=== PATIENT | female | born 1975 | race Caucasian/White ===

== ENCOUNTER 2020-07-06 13:31 | Outpatient (REF) | payer OTHER, SELFPAY ==
--- NOTE | 2020-07-06 13:37 | XR_ITS ---
EXAMINATION: XR SHOULDER, RIGHT CLINICAL INFORMATION: Pain right shoulder COMPARISON: None TECHNIQUE: AP external rotation, Grashey, scapular Y, and axillary views of the right shoulder. FINDINGS: The bones and soft tissues are normal. No fracture. Glenohumeral and acromioclavicular alignment is anatomic with normal joint space. No abnormal soft tissue calcifications. XR/XR shoulder RT min 2V IMPRESSION: Normal right shoulder.
== END 2020-07-06 13:32 | disposition home or self-care (01) ==
LOC: HO.HMGCX 13:31
PROVIDERS: PCP Internal Medicine; Visit Provider Internal Medicine
DX: M25.511 Pain in right shoulder (principal)
CPT/HCPCS: 73030

== ENCOUNTER 2020-08-04 07:16 | Outpatient (REF) | payer OTHER, SELFPAY ==
[2020-08-04 11:19] LABS: MANUAL DIFF FLAG NO
[2020-08-04 11:26] LABS: Basophils Absolute Auto 0.1 X10*3/uL (0.0-0.2); Basophils Percent Auto 0.8 % (0-2); Eosinophils Absolute Auto 0.1 X10*3/uL (0.0-0.4); Hematocrit 30.2 % (37-47); Hemoglobin 8.6 g/dl (12.0-16.0); Imm Gran Abs Auto 0.01 X10*3/uL (0.00-0.03); Imm Gran Pct Auto 0.2 % (0.0-0.4); Lymphocytes Absolute Auto 1.7 X10*3/uL (1.2-4.9); Lymphocytes Percent Auto 28.1 % (20-40); Mean Corpuscular HGB Conc 28.5 g/dl (31.0-35.0); Mean Corpuscular Hemoglobin 19.9 pg (27.0-33.0); Mean Corpuscular Volume 69.7 fL (80-98); Mean Platelet Volume 9.7 fL (9.4-12.3); Monocytes Absolute Auto 0.5 X10*3/uL (0.1-1.2); Monocytes Percent Auto 8.8 % (2-11); Neutrophils Absolute Auto 3.7 X10*3/uL (2.0-8.3); Neutrophils Percent Auto 60.1 % (45-73); Platelet Count 302 X10*3/uL (160-400); Red Blood Count 4.33 X10*6/uL (4.20-5.50); Red Cell Distribution Width 16.6 % (11.0-16.0); White Blood Count 6.1 X10*3/uL (4.8-10.8)
[2020-08-04 11:50] LABS: Alanine Aminotransferase 13 U/L (0-31); Albumin Level 4.2 g/dL (3.5-5.0); Alkaline Phosphatase 64 U/L (39-117); Anion Gap 10 (12-20); Aspartate Amino Transferase 8 U/L (5-31); Bilirubin Total 0.3 mg/dL (0.0-1.0); Blood Urea Nitrogen 12 mg/dL (9-16); Calcium 8.6 mg/dL (8.4-10.2); Carbon Dioxide 25 mmol/L (22-29); Chloride 107 mmol/L (96-108); Cholesterol 197 mg/dL; Estimated Glomerular Filt Rate > 60; Glucose Fasting 83 mg/dL (60-99); HDL Cholesterol 44 mg/dL; Iron 24 mcg/dL (30-160); LDL Cholesterol Calculated 139 mg/dl; Percent Iron Saturation 5 % (15-50); Potassium 4.2 mmol/l (3.3-5.1); Sodium 138 mmol/L (135-145); Total Iron Binding Capacity 480 mcg/dL (228-428); Total Protein 6.8 g/dL (6.5-8.0); Triglycerides 72 mg/dL; Unsaturated Iron Binding 456 ug/dL
[2020-08-04 12:11] LABS: Thyroid Stimulating Hormone 1.03 uIU/mL (0.32-4.0)
== END 2020-08-04 07:17 | disposition home or self-care (01) ==
LOC: HO.HMGCLDS 07:16
PROVIDERS: PCP Internal Medicine; Visit Provider Internal Medicine
DX: D50.9 Iron deficiency anemia, unspecified (principal); M25.511 Pain in right shoulder; Z00.00 Encounter for general adult medical examination without abnormal findings
CPT/HCPCS: 36415; 80053; 80061; 83540; 84443; 85025

== ENCOUNTER 2020-09-13 15:22 | Outpatient (REF) | payer OTHER, SELFPAY ==
--- NOTE | 2020-09-13 15:29 | US_ITS ---
EXAMINATION: US THYROID CLINICAL INFORMATION: Thyroid nodule. COMPARISON: None TECHNIQUE: Linear transducer marie-scale and color Doppler examination with attention to the region of the thyroid. FINDINGS: SIZE: Measurements of the thyroid lobes and nodules are given in sagittal, anteroposterior and transverse dimensions respectively. Right Thyroid Lobe: 5.3 x 1.6 x 1.6 cm, volume 7 mL. Parenchyma: The gland echotexture is normal. Thyroid vascularity is normal. Left Thyroid Lobe: 5.4 x 1.4 x 1.3 cm, volume 5 mL. Parenchyma: The gland echotexture is normal. Thyroid vascularity is normal. Isthmus: 0.3 cm in maximum AP dimension. RIGHT THYROID LOBE: No nodules. ISTHMUS: No nodules. LEFT THYROID LOBE: No nodules. NODES: No lymphadenopathy is seen in the tissue surrounding the thyroid gland. US/US thyroid IMPRESSION: Normal thyroid ultrasound. No nodule seen.
== END 2020-09-13 15:23 | disposition home or self-care (01) ==
LOC: HO.HMGCX 15:22
PROVIDERS: PCP Internal Medicine; Visit Provider Internal Medicine
DX: E04.1 Nontoxic single thyroid nodule (principal); Z00.00 Encounter for general adult medical examination without abnormal findings; R04.1 Hemorrhage from throat
CPT/HCPCS: 76536

== ENCOUNTER 2021-04-04 08:21 | Outpatient (REF) | payer OTHER, SELFPAY ==
--- NOTE | ~2021-04-04 | US_ITS ---
EXAMINATION: US VENOUS ULTRASOUND WITH DOPPLER LOWER EXTREMITY, LEFT CLINICAL INFORMATION: Left leg pain. COMPARISON: None TECHNIQUE: Ultrasound of the deep veins is performed from the hip to the calf with compression sonography and color and pulse Doppler assessment. Spectral analysis with color-flow imaging is performed. FINDINGS: There is normal venous compression and respiratory variation and augmented flow. The visualized common femoral vein, superficial femoral vein, profunda femoral vein, popliteal vein, and the trifurcation region shows no evidence of deep venous thrombosis. There is no significant popliteal fossa cyst. There is no Ramos's cyst. If the patient's symptoms persist, followup ultrasound in 5 days 7 days might be of value to exclude proximal propagation from a non-visualized calf vein. US/US venous duplex LE LT IMPRESSION: No DVT demonstrated in the left lower extremity.
== END 2021-04-04 08:22 | disposition home or self-care (01) ==
LOC: HO.HMGCX 08:21
PROVIDERS: PCP Internal Medicine; Visit Provider Internal Medicine
DX: M79.605 Pain in left leg (principal)
CPT/HCPCS: 93971

== ENCOUNTER 2021-07-19 11:37 | Outpatient (REF) | payer OTHER, SELFPAY ==
[2021-07-19 13:13] LABS: Influenza A PCR NEGATIVE (Negative); Influenza B PCR NEGATIVE (Negative); Resp Syncy Virus RNA Qual PCR NEGATIVE (Negative); SARS COV2 PCR INHOUSE POSITIVE (Negative)
== END 2021-07-19 11:38 | disposition home or self-care (01) ==
LOC: HO.LNP 11:37
PROVIDERS: Visit Provider Physician Assistant Medical
DX: Z20.822 Contact with and (suspected) exposure to COVID-19 (principal); J06.9 Acute upper respiratory infection, unspecified
CPT/HCPCS: 0241U

== ENCOUNTER 2021-11-15 08:09 | Outpatient (REF) | payer OTHER, SELFPAY ==
[2021-11-15 11:42] LABS: Hematocrit 35.5 % (37.0-47.0); Hemoglobin 10.9 g/dl (12.0-16.0); Mean Corpuscular HGB Conc 30.7 g/dl (31.0-35.0); Mean Corpuscular Hemoglobin 23.9 pg (27.0-33.0); Mean Corpuscular Volume 77.9 fL (80.0-98.0); Mean Platelet Volume 10.1 fL (9.4-12.3); Platelet Count 332 X10*3/uL (160-400); Red Blood Count 4.56 X10*6/uL (4.20-5.50); Red Cell Distribution Width 14.9 % (11.0-16.0); White Blood Count 7.4 X10*3/uL (4.8-10.8)
[2021-11-15 11:55] LABS: Alanine Aminotransferase 17 U/L (0-31); Alkaline Phosphatase 71 U/L (39-117); Anion Gap 10 (12-20); Aspartate Amino Transferase 9 U/L (5-31); Bilirubin Total 0.4 mg/dL (0.0-1.0); Blood Urea Nitrogen 13 mg/dL (9-16); Calcium 9.1 mg/dL (8.4-10.2); Carbon Dioxide 25 mmol/L (22-29); Chloride 106 mmol/L (96-108); Cholesterol 204 mg/dL; Estimated Glomerular Filt Rate > 60; Glucose Fasting 84 mg/dL (60-99); HDL Cholesterol 48 mg/dL; Iron 41 mcg/dL (30-160); LDL Cholesterol Calculated 135 mg/dl; Percent Iron Saturation 9 % (15-50); Potassium 3.9 mmol/L (3.3-5.1); Sodium 137 mmol/L (135-145); Total Iron Binding Capacity 481 mcg/dL (228-428); Total Protein 6.7 g/dL (6.5-8.0); Triglycerides 108 mg/dL; Unsaturated Iron Binding 440 ug/dL
== END 2021-11-15 08:10 | disposition home or self-care (01) ==
LOC: HO.HMGCLDS 08:09
PROVIDERS: Visit Provider Internal Medicine
DX: D50.9 Iron deficiency anemia, unspecified (principal); E78.5 Hyperlipidemia, unspecified
CPT/HCPCS: 36415; 80053; 80061; 83540; 85027

== ENCOUNTER 2021-12-13 15:44 | Outpatient (REF) | payer OTHER, SELFPAY | END 2021-12-13 15:45 | disposition home or self-care (01) | LOC: HO.MAMMO 15:44 | PROVIDERS: PCP Internal Medicine; Visit Provider Internal Medicine | DX: Z13.89 Encounter for screening for other disorder (principal) ==

== ENCOUNTER → 2022-01-18 13:31 | Outpatient (RCR) | payer OTHER, SELFPAY ==
--- NOTE | 2020-08-19 18:34 | MHC.PT.DC ---
[facility] [place] [facility] [place] [facility] [place] [facility] [address] Daly Hernandez [address] [phone] F: [phone] F: [phone] F: [phone] F: [phone] Physical Therapy Discharge Report Diagnosis: R shoulder pain. Date of Surgery: Date of Evaluation: 07/15/20 Date of Discharge: Treatments to Date: 7 Cancellations to Date: 0 No Shows to Date: 0 Discharge Status: Discharge Summary: Lucy has been an active participant in her therapy in the clinic with [facility] home program compliance. She requests DC after 7 visits as she is feeling significantly better of her pain. She has met all of her therapeutic goals though is recommended to continue her strengthening program at home as she persists with compensated shoulder movements d/t weakness. Electronically signed by: Guillermo Kebede PT. Please sign and return to therapist. Thank you for your referral.
--- NOTE | 2020-09-29 16:13 | MHC.PT.DC ---
[facility] [place] [facility] [place] Office [place] Office [address] Daly Hernandez [address] [phone] F: [phone] F: [phone] F: [phone] F: [phone] Physical Therapy Discharge Report Diagnosis: R shoulder pain. Date of Surgery: Date of Evaluation: 07/15/20 Date of Discharge: 09/10/20 Treatments to Date: 7 Cancellations to Date: 0 No Shows to Date: 0 Discharge Status: Achieved Goals Improved Function Independent with HEP Discharge Summary: Lucy has been an active participant in her therapy in the clinic with fair home program compliance. She requests DC after 7 visits as she is feeling significantly better of her pain. She has met all of her therapeutic goals though is recommended to continue her strengthening program at home as she persists with compensated shoulder movements d/t weakness. Electronically signed by: Guillermo Kebede PT. Please sign and return to therapist. Thank you for your referral.
== END | disposition home or self-care (01) ==
LOC: HO.PTCHIC 07-15 14:56
PROVIDERS: PCP Internal Medicine; Visit Provider Internal Medicine
DX: M25.511 Pain in right shoulder (principal)
CPT/HCPCS: 97014; 97110; 97140; 97161

== ENCOUNTER 2022-08-25 09:42 | Outpatient (REF) | payer OTHER, SELFPAY ==
[2022-08-25 11:25] LABS: Appearance Urine Clear; Color Urine Yellow; Glucose Urine UA Negative (Negative); Leukocyte Esterase Urine Negative (Negative); Nitrite Urine Negative (Negative); Specific Gravity - Urine <= 1.005 (1.005-1.025); Urine Blood Negative (Negative); Urine Ketones Negative (Negative); Urine Protein Negative (Neg-Trace)
[2022-08-25 11:30] LABS: MANUAL DIFF FLAG NO
[2022-08-25 11:47] LABS: Basophils Percent Auto 0.7 % (0-2); Eosinophils Absolute Auto 0.2 X10*3/uL (0.0-0.4); Eosinophils Percent Auto 2.8 % (0-4); Hematocrit 32.9 % (37.0-47.0); Hemoglobin 9.7 g/dl (12.0-16.0); Imm Gran Abs Auto 0.01 X10*3/uL (0.00-0.03); Imm Gran Pct Auto 0.2 % (0.0-0.4); Lymphocytes Absolute Auto 1.2 X10*3/uL (1.2-4.9); Lymphocytes Percent Auto 22.1 % (20-40); Mean Corpuscular HGB Conc 29.5 g/dl (31.0-35.0); Mean Corpuscular Hemoglobin 21.5 pg (27.0-33.0); Mean Corpuscular Volume 72.8 fL (80.0-98.0); Mean Platelet Volume 9.5 fL (9.4-12.3); Monocytes Absolute Auto 0.5 X10*3/uL (0.1-1.2); Neutrophils Absolute Auto 3.5 x10*3/uL (2.0-8.3); Neutrophils Percent Auto 65.2 % (45-73); Platelet Count 329 X10*3/uL (160-400); Red Blood Count 4.52 X10*6/uL (4.20-5.50); Red Cell Distribution Width 16.3 % (11.0-16.0); White Blood Count 5.4 X10*3/uL (4.8-10.8)
[2022-08-25 14:36] LABS: Alanine Aminotransferase 14 U/L (0-31); Albumin Level 4.3 g/dL (3.5-5.0); Alkaline Phosphatase 78 U/L (39-117); Anion Gap 10 (12-20); Aspartate Amino Transferase 9 U/L (5-31); Bilirubin Total 0.3 mg/dL (0.0-1.0); Blood Urea Nitrogen 10 mg/dL (9-16); C Reactive Protein 0.17 mg/dL (< or = 0.50); Calcium 9.2 mg/dL (8.4-10.2); Carbon Dioxide 27 mmol/L (22-29); Chloride 107 mmol/L (96-108); Estimated Glomerular Filt Rate > 60; Glucose Random 68 mg/dL (60-115); Iron 24 mcg/dL (30-160); Percent Iron Saturation 6 % (15-50); Potassium 4.2 mmol/L (3.3-5.1); Sodium 140 mmol/L (135-145); TSH reflex Free T4 0.73 uIU/mL (0.32-4.0); Total Iron Binding Capacity 430 mcg/dL (228-428); Total Protein 6.8 g/dL (6.5-8.0); Unsaturated Iron Binding 406 ug/dL
== END 2022-08-25 09:43 | disposition home or self-care (01) ==
LOC: HO.HMGCLDS 09:42
PROVIDERS: PCP Internal Medicine; Visit Provider Internal Medicine
DX: D50.9 Iron deficiency anemia, unspecified (principal); R10.31 Right lower quadrant pain
CPT/HCPCS: 36415; 80053; 81003; 83540; 84443; 85025; 86140

== ENCOUNTER 2022-10-20 07:22 | Outpatient (REF) | payer OTHER, SELFPAY ==
[2022-10-20 11:35] LABS: MANUAL DIFF FLAG NO
[2022-10-20 11:53] LABS: Basophils Absolute Auto 0.1 X10*3/uL (0.0-0.2); Basophils Percent Auto 0.8 % (0-2); Eosinophils Absolute Auto 0.3 X10*3/uL (0.0-0.4); Eosinophils Percent Auto 4.6 % (0-4); Hematocrit 34.7 % (37.0-47.0); Hemoglobin 10.6 g/dl (12.0-16.0); Imm Gran Abs Auto 0.02 X10*3/uL (0.00-0.03); Imm Gran Pct Auto 0.3 % (0.0-0.4); Lymphocytes Absolute Auto 1.8 X10*3/uL (1.2-4.9); Lymphocytes Percent Auto 25.3 % (20-40); Mean Corpuscular HGB Conc 30.5 g/dl (31.0-35.0); Mean Corpuscular Hemoglobin 22.6 pg (27.0-33.0); Mean Corpuscular Volume 73.8 fL (80.0-98.0); Mean Platelet Volume 10.2 fL (9.4-12.3); Monocytes Absolute Auto 0.6 X10*3/uL (0.1-1.2); Monocytes Percent Auto 7.8 % (2-11); Neutrophils Absolute Auto 4.4 x10*3/uL (2.0-8.3); Neutrophils Percent Auto 61.2 % (45-73); Platelet Count 284 X10*3/uL (160-400); Red Cell Distribution Width 19.6 % (11.0-16.0); White Blood Count 7.2 X10*3/uL (4.8-10.8)
[2022-10-20 12:08] LABS: Alanine Aminotransferase 21 U/L (0-31); Albumin Level 3.9 g/dL (3.5-5.0); Alkaline Phosphatase 74 U/L (39-117); Anion Gap 11 (12-20); Aspartate Amino Transferase 12 U/L (5-31); Bilirubin Total 0.5 mg/dL (0.0-1.0); Blood Urea Nitrogen 16 mg/dL (9-16); Calcium 8.9 mg/dL (8.4-10.2); Carbon Dioxide 24 mmol/L (22-29); Chloride 107 mmol/L (96-108); Cholesterol 209 mg/dL; Estimated Glomerular Filt Rate > 60; Glucose Fasting 82 mg/dL (60-99); HDL Cholesterol 54 mg/dL; LDL Cholesterol Calculated 136 mg/dl; Potassium 3.9 mmol/L (3.3-5.1); Sodium 138 mmol/L (135-145); Total Protein 6.3 g/dL (6.5-8.0); Triglycerides 95 mg/dL
[2022-10-20 12:31] LABS: TSH reflex Free T4 1.37 uIU/mL (0.32-4.0)
== END 2022-10-20 07:23 | disposition home or self-care (01) ==
LOC: HO.HMGCLDS 07:22
PROVIDERS: PCP Internal Medicine; Visit Provider Internal Medicine
DX: Z00.00 Encounter for general adult medical examination without abnormal findings (principal); E04.1 Nontoxic single thyroid nodule
CPT/HCPCS: 36415; 80053; 80061; 84443; 85025

== ENCOUNTER 2022-10-24 11:06 | Outpatient (REF) | payer OTHER, SELFPAY ==
[2022-10-24 14:41] LABS: Iron 99 mcg/dL (30-160); Percent Iron Saturation 23 % (15-50); Total Iron Binding Capacity 426 mcg/dL (228-428); Unsaturated Iron Binding 327 ug/dL
[2022-10-25 10:13] LABS: Follicle Stimulating Hormone 15.3 mIU/mL
== END 2022-10-24 11:07 | disposition home or self-care (01) ==
LOC: HO.HMGCLDS 11:06
PROVIDERS: PCP Internal Medicine; Visit Provider Internal Medicine
DX: Z78.0 Asymptomatic menopausal state (principal)
CPT/HCPCS: 36415; 83001; 83540

== ENCOUNTER 2023-01-08 10:00 | Outpatient (RCR) | payer OTHER, SELFPAY ==
--- NOTE | 2022-12-11 10:42 | MHC.PT.EP ---
[facility] [place] Office [place] Office [place] Office [address] Daly Hernandez [address] [phone] F: [phone] F: [phone] F: [phone] F: [phone] Physical Therapy Plan of Care Date of Evaluation: Date of Surgery: Diagnosis: This is a 47 yo female presenting to skilled PT with a script for pain in R hip Assessment: This is a 47 yo female presenting to skilled PT with a script for pain in R hip. Patient reporting R side low and some radiating RLE symptoms (however she is having a hard time explaining what and where). Pain is more achy and it comes and goes. Pain started about 3 months ago insidiously. Pain increases with sleeping on her sides, sitting (couch), stepping up onto stairs and LB dressing. Pain improves with walking. She saw her PCP who reports that she thinks this is soft tissue related (no x-ray, no exercises or medication). She is here today requesting HEP for home to try. Assessment reveals pain that ranges from 2-6/10. Patient demos decreased lumbar and hip ROM, strength of core, back and hip, she is TTP at R QL, ITB and piri. Functionally, she demos compensation with ambulation, transfers and ADLs. Based on functional limitations, impaired QOL and decreased pain tolerance patient is a good candidate for skilled PT 2x/wk for 5 wks however would like to try 1x/wk for 4wks. Frequency and Duration: The patient will be seen 2x/wk for 5wks Short Term Goals: I in HEP Improve pain to no more than 3/10 at the worst Improve sleeping tolerance to waking no more than 1x/night due to pain Rn Child Goals: centralize symptoms in 5wks Improve hip strength by at least 1 grade in 5wks demo proper core stab in all planes combined with functional movements without pain in 5wks improve oswestry by 10 points in 5wks Treatment Plan: Modalities to reduce pain, spasms and effusion. Manual therapy to restore motion and function. Therapeutic exercise to improve strength and flexibility. Neuromuscular re-education for posture and balance. Therapeutic activities to return to functional activities of daily living. Electronically signed by: Mirna Bains PT Please sign and return to therapist. Thank you for your referral.
--- NOTE | 2023-02-08 14:21 | MHC.PT.DC ---
[facility] [place] Office [place] Office [place] Office [address] Daly Hernandez [address] [phone] F: [phone] F: [phone] F: [phone] F: [phone] Physical Therapy Discharge Report Diagnosis: This is a 47 yo female presenting to skilled PT with a script for pain in R hip Date of Surgery: Date of Evaluation: 12/11/22 Date of Discharge: 02/08/23 Treatments to Date: 5 Cancellations to Date: 0 No Shows to Date: 0 Discharge Status: Achieved Goals Improved Function Insurance Declined Tx Patient Elected to Stop Discharge Summary: Patient was instructed in a review of HEP, provided new pictures of exercises as well. She feels ready to continue on her own at this time. She feels like her pain and ROM is improving. DC to HEP after chart was kept open for 30 days Electronically signed by: Mirna Bains PT Please sign and return to therapist. Thank you for your referral.
== END 2023-02-08 14:22 | disposition home or self-care (01) ==
LOC: HO.PTCHIC 10:00
PROVIDERS: PCP Internal Medicine; Visit Provider Internal Medicine
DX: M25.551 Pain in right hip (principal)
CPT/HCPCS: 97110; 97161; 97162

== ENCOUNTER 2023-08-03 09:48 | Emergency (ER) | payer OTHER, SELFPAY ==
--- NOTE | ~2023-08-03 | CT_ITS ---
EXAMINATION: CT ABDOMEN AND PELVIS WITH CONTRAST CLINICAL INFORMATION: Abdominal pain. COMPARISON: None available. TECHNIQUE: Multidetector volumetric images were obtained from the superior aspect of the liver through the pubic symphysis following administration 85 mL of Omnipaque 350 intravenous contrast. Sagittal and coronal reformatted images were obtained on the technologist's workstation. Oral contrast: No This CT examination was performed using dose optimization techniques as appropriate, variously including the following: *Automated exposure control *Adjustment of mA and/or kV according to patient size (this includes techniques or standardized protocols for targeted exams where dose is matched to indication/reason for exam; i.e. extremities or head) *Use of iterative reconstruction technique DLP: 487 mGy-cm FINDINGS: LUNG BASES: The visualized lung bases are unremarkable. LIVER, GALLBLADDER, AND BILIARY TREE: The liver is normal in size, shape, and attenuation. No focal hepatic lesion or biliary ductal dilatation is present. The gallbladder is unremarkable with no evidence of radiopaque gallstones, gallbladder wall thickening, or obvious pericholecystic inflammatory changes. PANCREAS: Unremarkable. SPLEEN: Unremarkable. ADRENAL GLANDS: Unremarkable. KIDNEYS AND URETERS: The kidneys are normal in size, shape, and attenuation. No hydronephrosis, hydroureter, or calculi seen. No perinephric stranding. There is a subcentimeter cyst mid to lower pole left kidney. BLADDER: Unremarkable. GASTROINTESTINAL TRACT: The small and large bowel are unremarkable. The appendix is unremarkable. ABDOMINAL WALL: No significant hernia is appreciated. LYMPH NODES: Normal. VASCULAR: Unremarkable. PELVIC VISCERA: The uterus is heterogeneous in attenuation with multiple small hypodensities. There is a small amount of free fluid in the pelvis. OSSEOUS STRUCTURES: Unremarkable. CT/CT abdomen pelvis w IV con IMPRESSION: No acute intralateral process. Heterogeneous uterus likely small fibroids. Small amount of free fluid within the pelvis of uncertain Fleischner guidelines were followed.
--- NOTE | ~2023-08-03 | US_ITS ---
EXAMINATION: US PELVIS COMPLETE CLINICAL INFORMATION: Pelvic pain and cramping COMPARISON: CT abdomen pelvis 12/05/2017 TECHNIQUE: Transabdominal and transvaginal imaging was performed. FINDINGS: The uterus is of normal size and echogenicity measuring 7.9 x 5.0 x 6.4 cm. The uterus is retroverted and retroflexed in position. A regular homogeneous endometrium is identified measuring 0.9 cm. A 1.5 cm intramural myoma in the right anterior body of the uterus. Nabothian cysts in the cervix. Both ovaries are of normal size and echogenicity. The right measures 3.5 x 1.7 x 1.5 cm for a volume of 4.7 mL. The left measures 3.7 x 1.5 x 2.0 cm for a volume of 5.8 mL. The left ovary is remarkable for a 2.8 cm simple benign ovarian cyst, no follow-up imaging recommended. There is trace simple physiologic volume pelvic free fluid. US/US pelvic and transvaginal IMPRESSION: 1. A 1.5 cm intramural myoma in the right anterior body of the uterus. 2. The left ovary is remarkable for a 2.8 cm simple benign ovarian cyst, no follow-up imaging recommended.
[2023-08-03 09:51] VITALS: BP 134/79; PULSE 94; RESP 16; TEMP 37.1; O2SAT 97; BMI 27.3
--- NOTE | 2023-08-03 10:47 | PC.NURSE ---
Pt states she has been feeling pressure in her uterus since yesterday; pressure/pain is worsened when she is sitting, walking, and changing positions. She states she has not had her period since april and is currently going through menopause. Pt states she can feel a burning sensation when urinating beginning this morning. Pt denies CP, SOB, and headache. Orders placed by provider. Care ongoing.
--- NOTE | 2023-08-03 11:10 | ED.ABDPAIN ---
HPI - Abdominal Pain General Chief Complaint: Abdominal Pain Stated Complaint: lower abd pain/ UTI? Time Seen by Provider: 08/03/23 10:39 Source: patient Mode of arrival: ambulatory Limitations: no limitations History of Present Illness HPI narrative: 48 yo female hx of anemia, gastritis, prior appendectomy here with 2 days of dysuria, lower abdominal pain and pressure no n/v/d or fevers. no change in stools. has urinary frequency has pressure in lower abdomen when walking and sitting. MD elicited complaint: abdominal pain Pertinent past history: none Onset (ago): day(s) (2) Pain Consistency: intermittent Location: suprapubic Severity: moderate Quality: aching and fullness Radiation: none Migration to: no migration Exacerbating factors: movement Relieving factors: nothing Associated symptoms: dysuria Related Data Previous Rx's Medication Instructions Recorded atorvastatin 10 mg tablet 10 mg PO DAILY #90 tabs 07/06/20 triamcinolone acetonide 0.1 % 1 appl topical BID #30 grams 08/25/22 topical cream ciclopirox 8 % topical solution 1 appl topical BEDTIME 4 weeks 10/24/22 #6.6 mL Allergies Allergy/AdvReac Type Severity Reaction Status Date / Time No Known Allergies Allergy Verified 08/03/23 09:51 Review of Systems Review of Systems Constitutional : No Weight loss, No Fever, No Chills ENT/Mouth : No sore throat, No Rhinorrhea Eyes: No Swelling, No Redness Cardiovascular : No Chest Pain, No SOB, NoEdema Respiratory : No Cough, No Sputum, No Wheezing Gastrointestinal : no Nausea, no Vomiting, no Diarrhea, positive abdominal Pain, No Hematochezia, No Melena Genitourinary : pos Dysuria, pos Urinary Frequency, No Hematuria, pos Urgency Musculoskeletal : No joint pain, No Myalgias, No Joint Swelling Skin : No Skin Lesions, No rash Neuro : No Weakness, No Numbness, No Dizziness, No Headache Psych : No Anxiety/Panic, No Depression Heme/Lymph: No Bruising, No Lymphadenopathy Endocrine : No Polyuria, No Polydipsia All other systems reviewed and are negative. [facility] Past Medical History Attestation statement: The following information was validated with the patient. Source: old records reviewed Medical History Breast mass, right Acute pain of left lower extremity Normal Pap smear Right shoulder pain Iron deficiency anemia Annual physical exam History of gastritis Chronic iron deficiency anemia Hyperlipidemia Surgical History H/O colonoscopy History of esophagogastroduodenoscopy (EGD) History of appendectomy Family History Family History Father HTN (hypertension) Mother No problems noted. Social History Housing: House Patient Tobacco Use Status: Never used Tobacco e-Cigarette/Vaping Use: Never Used Second Hand Smoke Exposure: No Advance Directives: No Advance Directives Information Provided: Yes service: No Current occupational status: employed Cognitive needs: No Hearing needs: No Vision needs: Yes Physical Exam ED Vital Signs: Vital Signs - 24 hr 08/03/23 09:51 Temperature 98.7 F Pulse Rate 94 Respiratory Rate 16 Blood Pressure 134/79 Pulse Oximetry 97 Oxygen Delivery Method Room Air BMI result Body Mass Index 27.3 Appearance: Alert. Oriented X3. No acute distress. Eyes: Pupils equal, round and reactive to light. ENT: Pharynx normal. Neck: Normal inspection. Neck supple. CVS: Normal heart rate and rhythm. Pulses normal. Respiratory: No respiratory distress. Breath sounds normal. Abdomen: Soft and ttp in suprapubic area but no rebound or guarding Back: no CVA ttp Skin: Skin warm and dry. Normal skin color. Normal skin turgor. Extremities: No lower extremity edema. No calf ttp Neuro: Oriented X 3. No motor deficit. No sensory deficit. Course Course Course Narrative: urine normal will obtain US to rule out pelvic lesion US not impressive will obtain CT scan to rule out mass/diverticulitis Reevaluation(s) Reevaluation #1: signed out to Dr. Thayer pending CT scan Medical Decision Making Medical Decision Making MDM Narrative: 48 yo female with hx of gastritis and anemia prior appendectomy here with c/o lower abdominal pain and pressure with urinary symptoms no CVA ttp no fevers no vomiting. Has mild suprapubic ttp at this time will obtain basic labs and UA for presumed UTI no systemic symptoms and not toxic. No hx of renal colic Differential Diagnosis Differential Diagnoses: The differential diagnosis associated with the presentation includes UTI, cystitis Admission/Observation Consideration of admission/observation: Escalation of care including admission/observation considered Lab Data MDM Lab Attestation statement: I reviewed the patient's lab results. 08/03/23 11:31 08/03/23 11:31 Labs: Lab Results 08/03/23 Range/Units 11:31 WBC 6.9 (4.8-10.8) X10*3/uL RBC 4.77 (4.20-5.50) X10*6/uL Hgb 10.5 L (12.0-16.0) g/dl Hct 34.9 L (37.0-47.0) % MCV 73.2 L (80.0-98.0) fL MCH 22.0 L (27.0-33.0) pg MCHC 30.1 L (31.0-35.0) g/dl RDW 19.0 H (11.0-16.0) % Plt Count 274 (160-400) X10*3/uL MPV 8.8 L (9.4-12.3) fL Immature Gran % (Auto) 0.3 (0.0-0.4) % Neut % (Auto) 70.1 (45-73) % Lymph % (Auto) 18.7 L (20-40) % Delta % (Auto) 8.4 (2-11) % Eos % (Auto) 1.9 (0-4) % Baso % (Auto) 0.6 (0-2) % Lymph # (Auto) 1.3 (1.2-4.9) X10*3/uL Delta # (Auto) 0.6 (0.1-1.2) X10*3/uL Eos # (Auto) 0.1 (0.0-0.4) X10*3/uL Baso # (Auto) 0.0 (0.0-0.2) X10*3/uL Abs Immat Gran (auto) 0.02 (0.00-0.03) X10*3/uL Absolute Neuts (auto) 4.8 (2.0-8.3) x10*3/uL Absolute Nucleated RBC 0.000 (0.0-0.012) X10*3/uL Nucleated RBC % (auto) 0.0 (0.0-0.2) /100WBC Sodium 143 (135-145) mmol/L Potassium 3.6 (3.3-5.1) mmol/L Chloride 110 H (96-108) mmol/L Carbon Dioxide 29 (22-29) mmol/L Anion Gap 8 L (12-20) BUN 8 L (9-16) mg/dL Creatinine 0.65 (0.5-1.4) mg/dL Estim Creat Clear Calc 94.4 Estimated GFR > 60 Random Glucose 77 (60-115) mg/dL Calcium 9.3 (8.4-10.2) mg/dL Magnesium 1.9 (1.6-2.6) mg/dL Total Bilirubin 0.2 (0.0-1.0) mg/dL Direct Bilirubin < 0.2 (0.0-0.5) mg/dL AST 8 (5-31) U/L ALT 14 (0-31) U/L Alkaline Phosphatase 75 (39-117) U/L Total Protein 7.1 (6.5-8.0) g/dL Albumin 4.1 (3.5-5.0) g/dL Lipase 37 (8-78) U/L Urine Color Yellow Urine Appearance Clear Urine pH 6.5 (5.0-9.0) Ur Specific [place] <= 1.005 (1.005-1.025) Urine Protein Negative (Neg-Trace) mg/dL Urine Glucose (UA) Negative (Negative) mg/dL Urine Ketones Negative (Negative) mg/dL Urine Blood Negative (Negative) Urine Nitrite Negative (Negative) Ur Leukocyte Esterase Negative (Negative) COVID-19 (ANNI) Negative (Negative) COVID-19 Clin Com See Note Independent Interpretation I performed an independent interpretation of an: Ultrasound (no cause for pain) and CT Scan Radiology Impression Discussion of test interpretation with radiology: I have reviewed the radiologist's reading. External Record Review External record reviewed: Office record Medications Administered Discontinued Medications Generic Name Dose Route Start Last Admin Trade Name Freq PRN Reason Stop Dose Admin Iohexol 100 ml 08/03/23 15:29 08/03/23 15:29 Iohexol 350 Mg/Ml 100 Ml Infus..Btl IV 08/03/23 15:30 85 ml ONCE ONE Administration Discharge Plan Discharge Clinical Impression: Uterine myoma Qualifiers: Uterine leiomyoma location: unspecified location Qualified Code(s): D25.9 - Leiomyoma of uterus, unspecified Ovarian cyst Qualifiers: Laterality: left Qualified Code(s): N83.202 - Unspecified ovarian cyst, left side Patient Disposition: Still a Patient Instructions: Ovarian Cyst (ED) Additional Instructions: return for worsening pain, fevers, vomiting, follow up with your OBGYN in the next 1 to 2 weeks. The uterus is of normal size and echogenicity measuring 7.9 x 5.0 x 6.4 cm. The uterus is retroverted and retroflexed in position. A regular homogeneous endometrium is identified measuring 0.9 cm. A 1.5 cm intramural myoma in the right anterior body of the uterus. Nabothian cysts in the cervix. Both ovaries are of normal size and echogenicity. The right measures 3.5 x 1.7 x 1.5 cm for a volume of 4.7 mL. The left measures 3.7 x 1.5 x 2.0 cm for a volume of 5.8 mL. The left ovary is remarkable for a 2.8 cm simple benign ovarian cyst, no follow-up imaging recommended. There is trace simple physiologic volume pelvic free fluid. US/US pelvic and transvaginal IMPRESSION: 1. A 1.5 cm intramural myoma in the right anterior body of the uterus. 2. The left ovary is remarkable for a 2.8 cm simple benign ovarian cyst, no follow-up imaging recommended. Prescriptions: No Action atorvastatin 10 mg tablet 10 mg PO DAILY Qty: 90 3RF ciclopirox 8 % solution 1 appl topical BEDTIME 28 Days Qty: 6.6 2RF triamcinolone acetonide 0.1 % cream 1 appl topical BID Qty: 30 4RF
[2023-08-03 11:35] LABS: MANUAL DIFF FLAG NO
[2023-08-03 11:38] LABS: Appearance Urine Clear; Color Urine Yellow; Glucose Urine UA Negative (Negative); Leukocyte Esterase Urine Negative (Negative); Nitrite Urine Negative (Negative); PH 6.5 (5.0-9.0); Specific Gravity - Urine <= 1.005 (1.005-1.025); Urine Blood Negative (Negative); Urine Ketones Negative (Negative); Urine Protein Negative (Neg-Trace)
[2023-08-03 11:39] LABS: Basophils Percent Auto 0.6 % (0-2); Eosinophils Absolute Auto 0.1 X10*3/uL (0.0-0.4); Eosinophils Percent Auto 1.9 % (0-4); Hematocrit 34.9 % (37.0-47.0); Hemoglobin 10.5 g/dl (12.0-16.0); Imm Gran Abs Auto 0.02 X10*3/uL (0.00-0.03); Imm Gran Pct Auto 0.3 % (0.0-0.4); Lymphocytes Absolute Auto 1.3 X10*3/uL (1.2-4.9); Lymphocytes Percent Auto 18.7 % (20-40); Mean Corpuscular HGB Conc 30.1 g/dl (31.0-35.0); Mean Corpuscular Volume 73.2 fL (80.0-98.0); Mean Platelet Volume 8.8 fL (9.4-12.3); Monocytes Absolute Auto 0.6 X10*3/uL (0.1-1.2); Monocytes Percent Auto 8.4 % (2-11); Neutrophils Absolute Auto 4.8 x10*3/uL (2.0-8.3); Neutrophils Percent Auto 70.1 % (45-73); Platelet Count 274 X10*3/uL (160-400); Red Blood Count 4.77 X10*6/uL (4.20-5.50); White Blood Count 6.9 X10*3/uL (4.8-10.8)
[2023-08-03 11:50] LABS: Alanine Aminotransferase 14 U/L (0-31); Albumin Level 4.1 g/dL (3.5-5.0); Alkaline Phosphatase 75 U/L (39-117); Anion Gap 8 (12-20); Aspartate Amino Transferase 8 U/L (5-31); Bilirubin Direct < 0.2 mg/dL (0.0-0.5); Bilirubin Total 0.2 mg/dL (0.0-1.0); Blood Urea Nitrogen 8 mg/dL (9-16); COVID-19 Test Negative (Negative); Calcium 9.3 mg/dL (8.4-10.2); Carbon Dioxide 29 mmol/L (22-29); Chloride 110 mmol/L (96-108); Creatinine Clr Calc Pharmacy 94.4; Estimated Glomerular Filt Rate > 60; Glucose Random 77 mg/dL (60-115); IDNOW Serial# 08D9AD1C; Lipase 37 U/L (8-78); Magnesium 1.9 mg/dL (1.6-2.6); Potassium 3.6 mmol/L (3.3-5.1); Sodium 143 mmol/L (135-145); Total Protein 7.1 g/dL (6.5-8.0)
[2023-08-03] MEDS: iohexoL 350 MG/ML 100 ML INFUS..BTL IV (15:29)
[2023-08-03 16:34] VITALS: BP 134/66; PULSE 66; RESP 14; O2SAT 98
[2023-08-03 18:36] VITALS: BP 129/76; PULSE 71; RESP 16; TEMP 36.2; O2SAT 97
[2023-08-03] MEDS: Ibuprofen 400 MG TABLET PO (18:39)
== END 2023-08-03 18:43 | disposition home or self-care (01) ==
PROVIDERS: Emergency Medicine; Emergency Provider Emergency Medicine Emergency Medical Services; PCP Internal Medicine
DX: N83.202 Unspecified ovarian cyst, left side (principal); D25.9 Leiomyoma of uterus, unspecified; R10.30 Lower abdominal pain, unspecified; R30.0 Dysuria; R10.2 Pelvic and perineal pain; Z11.52 Encounter for screening for COVID-19; Z20.822 Contact with and (suspected) exposure to COVID-19; Z79.899 Other long term (current) drug therapy
CPT/HCPCS: 74177; 76830; 76856; 80048; 80076; 81003; 83690; 83735; 85025; 87635; 99284; Q9967

== ENCOUNTER 2023-10-23 07:49 | Outpatient (REF) | payer OTHER, SELFPAY ==
[2023-10-23 11:16] LABS: MANUAL DIFF FLAG NO
[2023-10-23 11:21] LABS: Basophils Percent Auto 0.4 % (0-2); Eosinophils Absolute Auto 0.1 X10*3/uL (0.0-0.4); Eosinophils Percent Auto 1.6 % (0-4); Hematocrit 38.7 % (37.0-47.0); Hemoglobin 12.8 g/dl (12.0-16.0); Imm Gran Abs Auto 0.03 X10*3/uL (0.00-0.03); Imm Gran Pct Auto 0.4 % (0.0-0.4); Lymphocytes Absolute Auto 1.7 X10*3/uL (1.2-4.9); Lymphocytes Percent Auto 24.1 % (20-40); Mean Corpuscular HGB Conc 33.1 g/dl (31.0-35.0); Mean Corpuscular Hemoglobin 26.5 pg (27.0-33.0); Mean Corpuscular Volume 80.1 fL (80.0-98.0); Mean Platelet Volume 9.9 fL (9.4-12.3); Monocytes Absolute Auto 0.5 X10*3/uL (0.1-1.2); Monocytes Percent Auto 6.6 % (2-11); Neutrophils Absolute Auto 4.7 x10*3/uL (2.0-8.3); Neutrophils Percent Auto 66.9 % (45-73); Platelet Count 301 X10*3/uL (160-400); Red Blood Count 4.83 X10*6/uL (4.20-5.50); Red Cell Distribution Width 16.5 % (11.0-16.0)
[2023-10-23 11:47] LABS: Alanine Aminotransferase 21 U/L (0-31); Alkaline Phosphatase 80 U/L (39-117); Anion Gap 12 (12-20); Aspartate Amino Transferase 12 U/L (5-31); Bilirubin Total 0.3 mg/dL (0.0-1.0); Blood Urea Nitrogen 14 mg/dL (9-16); Calcium 9.8 mg/dL (8.4-10.2); Carbon Dioxide 28 mmol/L (22-29); Chloride 106 mmol/L (96-108); Cholesterol 218 mg/dL (<200); Estimated Glomerular Filt Rate > 60; Glucose Fasting 83 mg/dL (60-99); HDL Cholesterol 42 mg/dL (>40); Iron 77 mcg/dL (30-160); LDL Cholesterol Calculated 147 mg/dL (<100); Percent Iron Saturation 21 % (15-50); Potassium 3.8 mmol/L (3.3-5.1); Sodium 142 mmol/L (135-145); Total Iron Binding Capacity 369 mcg/dL (228-428); Total Protein 7.2 g/dL (6.5-8.0); Triglycerides 146 mg/dL (<150); Unsaturated Iron Binding 292 ug/dL
[2023-10-23 12:01] LABS: TSH reflex Free T4 0.87 uIU/mL (0.32-4.0)
== END 2023-10-23 07:50 | disposition home or self-care (01) ==
LOC: HO.HMGCLDS 07:49
PROVIDERS: PCP Internal Medicine; Visit Provider Internal Medicine
DX: Z00.00 Encounter for general adult medical examination without abnormal findings (principal); D50.9 Iron deficiency anemia, unspecified; E78.5 Hyperlipidemia, unspecified
CPT/HCPCS: 36415; 80053; 80061; 83540; 84443; 85025

== ENCOUNTER 2023-10-25 12:55 | Outpatient (AMB) | payer OTHER, SELFPAY ==
[2023-10-25 13:35] VITALS: BP 122/74; PULSE 83; O2SAT 98; BMI 26.7
--- NOTE | 2023-10-25 13:35 | A.OFFPC_ITS ---
Vital Signs 10/25/23 13:35 Height 5 ft 2 in Weight 146 lb BMI 26.7 BP 122/74 Blood Pressure Location Lt brachial Position Sitting Pulse 83 Pulse Source Pulse Oximeter Pulse Oximetry (%) 98 Oxygen Delivery Method Room Air Intake Visit Reasons: Annual PE Intake Note: Pt is here today for PE. Allergies No Known Allergies Allergy (Verified 10/25/23 13:51) Medication List - Last Reconciled 10/25/23 by Nimo Gorman MD ciclopirox 8% 1 appl topical BEDTIME 4 weeks Tobacco use date assessed: 10/24/22 Dental Screening Dental Screen Date: 10/25/23 Did you have a dental visit in the last 12 months?: Yes Did you have a dental problem in the last 6 months where you did not have access to dental care?: No Was dental information given to patient?: Patient has dentist HPI Annual PE HPI Details Patient presents for a physical. She complains of irregular menses hot flashes and palpitations on and off worse at night occasionally waking her up. Patient denies chest pain shortness for breath. She has been trying to exercise and denies exercise induced palpitations. Patient had more hot flashes while taking atorvastatin and stopped taking the medication. [facility] Medical History Breast mass, right Acute pain of left lower extremity Normal Pap smear Right shoulder pain Iron deficiency anemia Annual physical exam History of gastritis Chronic iron deficiency anemia Hyperlipidemia Surgical History H/O colonoscopy History of esophagogastroduodenoscopy (EGD) History of appendectomy Family History Father HTN (hypertension) Mother No problems noted. Social History Housing: House Patient Tobacco Use Status: Never used Tobacco e-Cigarette/Vaping Use: Never Used Second Hand Smoke Exposure: No service: No Current occupational status: employed Cognitive needs: No Hearing needs: No Vision needs: Yes Questionnaire PHQ-9 Over the last 2 weeks, how often have you been bothered by any of the following problems? 1. Little interest or pleasure in doing things: not at all 2. Feeling down, depressed, or hopeless: not at all 3. Trouble falling or staying asleep, or sleeping too much: not at all 4. Feeling tired or having little energy: not at all 5. Poor appetite or overeating: not at all 6. Feeling bad about yourself - or that you are a failure or have let yourself or your family down: not at all 7. Trouble concentrating on things, such as reading the newspaper or watching television: not at all 8. Moving or speaking so slowly that other people could have noticed. Or the opposite - being so fidgety or restless that you have been moving around a lot more than usual: not at all 9. Thoughts that you would be better off or of hurting yourself in some way: not at all Total score: 0 Depression Screening Interpretation: Negative Depression Screening Done: Yes Source: Developed by Drs. Agapito Gibbs, Renetta Funk, Speedy Lane and colleagues, with an educational callum from [employer]. Thrive Questionnaire Date Thrive assessed: 10/25/23 I am a: Patient What is your living situation today?: I have a steady place to live Within the past 12 months, did the food you bought not last and you didn't have the money to get more?: Never true Within the past 12 months, did you worry whether your food would run out before you got money to buy more?: Never true Do you have trouble paying for medicines?: No Do you have trouble getting transportation to medical appointments?: No Do you have trouble paying your heating and electricity bill?: No Do you have trouble taking care of your child, family member or friend?: No Do you have trouble with day-to-day activities such as bathing, preparing meals, shopping, managing finances, etc.?: No Are you currently unemployed and looking for a job?: No Are you interested in more education?: No Please select the resources that you would like help with: None Currently or been in a relationship where the following occur: no concerns reported THRIVE Score: 0 AUDIT C Alcohol Use Questionnaire (AUDIT-C) 1. How often do you have a drink containing alcohol?: Never 3. How often do you have six or more drinks on one occasion?: Never Total Score: 0 ANGIE-7 AMB Questionnaire ANGIE-7 Date ANGIE - 7 assessed: 10/25/23 Feeling nervous, anxious, or on edge: 0 = Not at all Not being able to stop or control worryin = Not at all Worrying too much about different things: 0 = Not at all Trouble relaxin = Not at all Being so restless that it is hard to sit still: 0 = Not at all Becoming easily annoyed or irritable: 0 = Not at all Feeling afraid as if something awful might happen: 0 = Not at all Total ANGIE-7 score (0-4 normal; 5-9 mild; 10-14 moderate; 15-21 severe): 0 Source: Developed by Drs. Agapito Gibbs, Renetta Funk, Speedy Lane and colleagues, with an educational callum from [employer]. Review of Systems Const All systems reviewed & are unremarkable except as noted in HPI and below Reports no additional complaints Eyes Reports no additional complaints ENT Reports no additional complaints Card Reports no additional complaints Resp Reports no additional complaints GI Reports no additional complaints Reports no additional complaints Physical exam (Primary Care) Vital Signs: Last Vital Signs Pulse 83 10/25/23 13:35 BP 122/74 10/25/23 13:35 Pulse Ox 98 10/25/23 13:35 Oxygen Delivery Method Room Air 10/25/23 13:35 BMI result Body Mass Index 26.7 Tobacco/Smoking Status: Tobacco use Status Tobacco use date assessed 10/24/22 10/25/23 13:35 Patient Tobacco Use Status Never used Tobacco 10/25/23 13:35 e-Cigarette/Vaping Use Never Used 10/25/23 13:35 PHQ-9: PHQ-9 Score PHQ-9: Total score 0 10/25/23 13:58 Depression Screening Interpretation: Negative Thrive Assessment: Date of Thrive Assessment Date Thrive assessed 10/25/23 10/25/23 13:58 Currently or been in a relationship where the following occur: no concerns reported Const General: no acute distress HENMT Head: Yes normal to inspection Ears: hearing grossly normal bilaterally General nose exam: Normal external nose present Mouth: Normal oral and palatal mucosa present Throat: Yes posterior oropharynx normal Eyes General: appearance normal, both eyes and all related structures Neck Neck: Yes no lymphadenopathy and Yes supple Resp Effort & Inspection: normal respiratory effort Auscultation: clear to auscultation bilaterally Cardio Rhythm: regular rhythm Heart sounds: S1 normal heart sound present and S2 normal heart sound present GI Inspection: Yes normal to inspection Palpation (GI): Soft to palpation Percussion: Yes normal to percussion Auscultation: normal bowel sounds Extrem General: Yes no clubbing, cyanosis or edema Assessment and Plan Assessment & Plan (1) Palpitations: Code(s): R00.2 - Palpitations Plan: EKG showed NSR, no ST-T changes, Pt will have 3 day Holter, possible secondary to menopause (2) Annual physical exam: Code(s): Z00.00 - Encounter for general adult medical examination without abnormal findings Plan: well balanced diet, regular exercise discussed, Orders: Orders ECG 3 day holter monitor Today R00.2 - Palpitations AMB EKG-In Office Today E78.5 - Hyperlipidemia, unspecified, R00.2 - Pal pitations, Z00.00 - Encounter for general adult medical examination without abnormal findings Medications: Discontinued atorvastatin Discontinued Reason: Doctor's Order 10 mg PO DAILY 90 tabs 3RF Coding Level of Care Code Est Pt Prev Care 40-64y(34392) Diagnoses Palpitations R00.2 Annual physical exam Z00.00
== END 2023-10-25 14:52 | disposition home or self-care (01) ==
PROVIDERS: PCP Internal Medicine; Visit Provider Internal Medicine
DX: R00.2 Palpitations (principal); Z00.00 Encounter for general adult medical examination without abnormal findings
CPT/HCPCS: 99396

== ENCOUNTER → 2023-11-09 07:53 | Outpatient (REF) | payer OTHER, SELFPAY ==
--- NOTE | 2023-11-09 07:57 | HM_ITS ---
Conclusion: 1. Patient was monitored for total period of 2 days and 23 hours 2. Baseline was normal sinus rhythm with average heart of 69 beats per minute 3. No significant pauses noted 4. Occasional PACs noted with total burden of 0.1% 5. Patient reported 5 events with irregular heartbeat correlating with PACs and sinus tachycardia MTDD
== END ==
LOC: HO.CARD 07:53
PROVIDERS: PCP Internal Medicine; Visit Provider Internal Medicine
DX: R00.2 Palpitations (principal)
CPT/HCPCS: 93242

== ENCOUNTER → 2023-11-09 07:57 | Outpatient (BNV) | payer OTHER, SELFPAY | PROVIDERS: PCP Internal Medicine; Visit Provider Internal Medicine Cardiovascular Disease | DX: I49.1 Atrial premature depolarization (principal) | CPT/HCPCS: 93244 ==

== ENCOUNTER 2024-04-10 09:39 | Outpatient (AMB) | payer OTHER, SELFPAY ==
--- NOTE | 2024-04-10 09:40 | A.OFFPC_ITS ---
Vital Signs 04/10/24 09:41 Height 5 ft 2 in Weight 143 lb BMI 26.2 BP 128/80 Blood Pressure Location Lt brachial Position Sitting Pulse 73 Pulse Source Pulse Oximeter Pulse Oximetry (%) 97 Oxygen Delivery Method Room Air Intake Visit Reasons: ? UTI Intake Note: Pt is here today for a sick visit. Pt c/o pain when urinating and blood in the urine for 3 days. Allergies No Known Allergies Allergy (Verified 04/10/24 09:47) Medication List - Last Reconciled 04/10/24 by Nimo Gorman MD ciclopirox 8% 1 appl topical BEDTIME 4 weeks ciprofloxacin HCl (Cipro) 250 mg PO BID Tobacco use date assessed: 04/10/24 Dental Screening Dental Screen Date: 10/25/23 HPI ? UTI HPI Details Pt presents c/o 2 days of dysuria, lower abdominal discomfort increased urinary frequency. Patient denies fever chills nausea vomiting flank pain PFSH Medical History Breast mass, right Acute pain of left lower extremity Normal Pap smear Right shoulder pain Iron deficiency anemia Annual physical exam History of gastritis Chronic iron deficiency anemia Hyperlipidemia Surgical History H/O colonoscopy History of esophagogastroduodenoscopy (EGD) History of appendectomy Family History (Updated 04/10/24 @ 09:49 by Marline Renner Osvaldo) Father HTN (hypertension) Mother No problems noted. Social History Housing: House Patient Tobacco Use Status: Never used Tobacco e-Cigarette/Vaping Use: Never Used Second Hand Smoke Exposure: No service: No Current occupational status: employed Cognitive needs: No Hearing needs: No Vision needs: Yes Questionnaire Thrive Questionnaire Date Thrive assessed: 10/25/23 I am a: Patient What is your living situation today?: I have a steady place to live Within the past 12 months, did the food you bought not last and you didn't have the money to get more?: Never true Within the past 12 months, did you worry whether your food would run out before you got money to buy more?: Never true Do you have trouble paying for medicines?: No Do you have trouble getting transportation to medical appointments?: No Do you have trouble paying your heating and electricity bill?: I choose not to answer this question Do you have trouble taking care of your child, family member or friend?: I choose not to answer this question Do you have trouble with day-to-day activities such as bathing, preparing meals, shopping, managing finances, etc.?: I choose not to answer this question Are you currently unemployed and looking for a job?: I choose not to answer this question Are you interested in more education?: I choose not to answer this question Please select the resources that you would like help with: Housing/Care Home and Transportation Currently or been in a relationship where the following occur: I choose not to answer THRIVE Score: 0 AUDIT C Alcohol Use Questionnaire (AUDIT-C) 1. How often do you have a drink containing alcohol?: Never Total Score: 0 ANGIE-7 AMB Questionnaire ANGIE-7 Date ANGIE - 7 assessed: 10/25/23 Feeling nervous, anxious, or on edge: 0 = Not at all Not being able to stop or control worryin = Not at all Worrying too much about different things: 0 = Not at all Trouble relaxin = Not at all Being so restless that it is hard to sit still: 0 = Not at all Becoming easily annoyed or irritable: 0 = Not at all Feeling afraid as if something awful might happen: 0 = Not at all Total ANGIE-7 score (0-4 normal; 5-9 mild; 10-14 moderate; 15-21 severe): 0 Source: Developed by Drs. Agapito Gibbs, Renetta Funk, Speedy Lane and colleagues, with an educational callum from [employer]. Review of Systems Const All systems reviewed & are unremarkable except as noted in HPI and below ENT Reports no additional complaints Card Reports no additional complaints Resp Reports no additional complaints GI Reports no additional complaints Reports no additional complaints Physical exam (Primary Care) Vital Signs: Last Vital Signs Pulse 73 04/10/24 09:41 BP 128/80 04/10/24 09:41 Pulse Ox 97 04/10/24 09:41 Oxygen Delivery Method Room Air 04/10/24 09:41 BMI result Body Mass Index 26.2 Tobacco/Smoking Status: Tobacco use Status Tobacco use date assessed 04/10/24 04/10/24 09:49 Patient Tobacco Use Status Never used Tobacco 04/10/24 09:41 e-Cigarette/Vaping Use Never Used 04/10/24 09:41 Thrive Assessment: Date of Thrive Assessment Date Thrive assessed 10/25/23 04/10/24 09:41 Currently or been in a relationship where the following occur: I choose not to answer Const General: no acute distress Resp Effort & Inspection: normal respiratory effort Auscultation: clear to auscultation bilaterally Cardio Rhythm: regular rhythm Heart sounds: S1 normal heart sound present and S2 normal heart sound present GI Inspection: Yes normal to inspection Palpation (GI): Soft to palpation Percussion: Yes normal to percussion Auscultation: normal bowel sounds Results AMB Urinalysis, Automated UA Leukoctes 15 Anastasiia/uL Last Edit by DAKOTA Soriano on 04/10/24 09:55 UA Nitrite Negative Last Edit by DAKOTA Soriano on 04/10/24 09:55 UA Urobilinogen 0.2 mg/dL Last Edit by Marline Renner Osvaldo on 04/10/24 09: 55 UA Protein 30 mg/dL Last Edit by DAKOTA Soriano on 04/10/24 09:55 UA pH 6.5 Last Edit by Marline Renner [facility] on 04/10/24 09:55 UA Blood 200 Naveed/uL Last Edit by DAKOTA Soriano on 04/10/24 09:55 UA Specific [place] 1.010 Last Edit by DAKOTA Soriano on 04/10/24 09 :55 UA Ketone Negative Last Edit by DAKOTA Soriano on 04/10/24 09:55 UA Bilirubin 0 mg/dL Last Edit by Marline Renner Osvaldo on 04/10/24 09:55 UA Glucose 0 mg/dL Last Edit by DAKOTA Soriano on 04/10/24 09:55 Results Reviewed Results Reviewed: Laboratory Last Values Urine pH (Auto) 6.5 04/10/24 09:54 Specific [place] (Auto) 1.010 04/10/24 09:54 Urine Protein (Auto) 30 mg/dL 04/10/24 09:54 Glucose (UA)(Auto) 0 mg/dL 04/10/24 09:54 Urine Ketones (Auto) Negative 04/10/24 09:54 Urine Blood (Auto) 200 Naveed/uL 04/10/24 09:54 Urine Nitrite (Auto) Negative 04/10/24 09:54 Urine Bilirubin (Auto) 0 mg/dL 04/10/24 09:54 Urine Urobilinogen (Auto) 0.2 mg/dL 04/10/24 09:54 Leukocyte Esterase (Auto) 15 Anastasiia/uL 04/10/24 09:54 Assessment and Plan Assessment & Plan (1) Hyperlipidemia: Comment: Patient stopped taking pravastatin because of hot flashes Code(s): E78.5 - Hyperlipidemia, unspecified Plan: check lipids (2) UTI (urinary tract infection): Code(s): N39.0 - Urinary tract infection, site not specified Plan: Cipro 250 twice a day for 1 week is prescribed and supportive care discussed with the patient. Orders: Orders AMB Urinalysis Automated Today Z13.9 - Encounter for screening, unspecified Lipid Panel 2 Weeks E78.5 - Hyperlipidemia, unspecified, N39.0 - Urinary tract infection, site not specified UA w Microscopic 2 Weeks N39.0 - Urinary tract infection, site not specified Medications: New ciprofloxacin HCl (Cipro) 250 mg PO BID 14 tabs 0RF Coding Level of Care Code Est Pt Level 3 (25299) Diagnoses Hyperlipidemia E78.5 UTI (urinary tract infection) N39.0
[2024-04-10 09:41] VITALS: BP 128/80; PULSE 73; O2SAT 97; BMI 26.2
== END 2024-04-10 10:16 | disposition home or self-care (01) ==
PROVIDERS: PCP Internal Medicine; Visit Provider Internal Medicine
DX: E78.5 Hyperlipidemia, unspecified (principal); N39.0 Urinary tract infection, site not specified; R30.0 Dysuria
CPT/HCPCS: 81003; 99213

== ENCOUNTER 2024-05-02 08:21 | Outpatient (REF) | payer OTHER, SELFPAY ==
[2024-05-02 10:01] LABS: Appearance Urine Turbid; Color Urine Yellow; Glucose Urine UA Negative (Negative); Leukocyte Esterase Urine Trace (Negative); Nitrite Urine Negative (Negative); PH 8.5 (5.0-9.0); Specific Gravity - Urine 1.015 (1.005-1.025); UMIC TRIGGER UA YES; Urine Blood Negative (Negative); Urine Ketones Negative (Negative); Urine Protein Negative (Neg-Trace)
[2024-05-02 10:10] LABS: Bacteria Urine None Seen (None Seen); Hyaline Casts Urine 0-2 /LPF (0-2); RBC Urine 0-2 /HPF (0-2); Squamous Epithelial Cell Urine 0-2 /HPF (0-2); WBC Urine 0-5 /HPF (0-5)
[2024-05-02 10:56] LABS: Cholesterol 252 mg/dL (<200); HDL Cholesterol 44 mg/dL (>40); LDL Cholesterol Calculated 184 mg/dL (<100); Triglycerides 124 mg/dL (<150)
== END 2024-05-02 08:22 | disposition home or self-care (01) ==
LOC: HO.HMGCLDS 08:21
PROVIDERS: PCP Internal Medicine; Visit Provider Internal Medicine
DX: E78.5 Hyperlipidemia, unspecified (principal); N39.0 Urinary tract infection, site not specified
CPT/HCPCS: 36415; 80061; 81001

== ENCOUNTER 2024-10-25 07:51 | Outpatient (REF) | payer OTHER, SELFPAY ==
--- OUTSIDE RECORDS SUMMARY | 2024-10-25 07:53 | XMS_ITS | Patient Health Record ---
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 of containers..01 ThinPrep Vial [id number] IGP No Culture 30 Plus Reviewed date:03/17/2024 04:25:38 PM Interpretation: Performing Lab:[facility], [address], [address], [place], Phone - [phone], [facility] Notes/Report: Clinical Information:VAGINAL/CERVICAL, LMP 12/2 023 [id number] No. of containers..01 ThinPrep Vial DIAGNOSIS: NEGATIVE FOR INTRAEPITHELIAL LESION OR MALIGNANCY. CELLULAR CHANGES ASSOCIATED WITH ATROPHY ARE PRESENT. Specimen adequacy: Satisfactory for evaluation. Endocervical component may not be distinguished in cases of atrophy. Clinician provided ICD10: Z0 1.419 Performed by: Deisy morel, Electrical Plumbing Supervisor (ASCP) . . Note: The Pap smear is a screening test designed to aid in the detection of premalignant and malignant conditions of the uterine cervix. It is not a diagnostic procedure and should not be used as the sole means of detecting cervical cancer. Both false-positive and false-negative reports do occur. . Test Methodology: This liquid based ThinPrep(R) pap test was screened with the use of an image guided system. HPV Aptima Negative Negative This nucleic acid amplification test detects fourteen high-risk HPV types (16,18,31,33,35,39,45,51,52,56,58 ,59,66,68) without differentiation. HPV Genotype Reflex Criteria not met, HPV Genotype not performed. Urinalysis Reviewed date:03/12/2024 04:05:44 PM Interpretation: Performing Lab: Notes/Report: PH 5.0 PROTEIN NEG GLUCOSE NEG BLOOD NEG Reason For Referral No Information Medications Medication SIG (Take, Route, Frequency, Duration) Notes Start Date End Date Status Estradiol 10 MCG 1 tablet Vaginal THR ICE A WEEK for 90 days 03/12/2024 Active Pravastatin Sodium Unknown Dose Active Social History Tobacco Use: Social History Observation Description Date Details (start date - stop date) Never Smoker NA - NA Sexual History Question Answer Notes Had sex in the past 12 months (vaginal, oral, or anal)? Yes with Men only Prevention strategies discussed: Other AUDIT-C (Standard) Question Answer Notes Did you have a drink containing alcohol in the p ast year? No Points 0 Interpretation Negative Tobacco Control (Standard) Question Answer Notes Tobacco use: Nonsmoker Problems Problem Type SNOMED Code ICD Code Onset Dates Problem Status W/U Status Risk Notes Problem Postmenopausal atrophic vaginitis (38804922) Postmenopausal atrophic vaginitis (N95.2) Active confirmed Problem Unspecified menopausal and perimenopausal disorder (N95.9) Active confirmed Problem Pure hypercholesterolemia (298196014) Pure hypercholesterol emia, unspecified (E78.00) Active confirmed Vital Signs Temperature 97.1 degrees Fahrenheit 03/12/2024 Blood pressure diastolic 88 mm Hg 03/12/2024 Height 64.5 in 03/12/2024 Blood pressure systolic 128 mm Hg 03/12/2024 Weight 140 lbs 03/12/2024 BMI 23.66 kg/m2 03/12/2024 Encounters Encounter Location Date Provider Diagnosis [address] [place] [address] 03/12/2024 Mimi Barnes Encounter for gynecological examination (general) (routine) without abnormal findings Z01.419 ; Encounter for screening mammogram for malignant neoplasm of breast Z12.31 ; Postmenopausal atrophic vaginitis N95.2 and Unspecified menopausal and perimenopausal disorder N95.9 Assessments Encounter Date Diagnosis (ICD Code) Assessment Notes Treatment Notes Treatment Clinical Notes Section Notes 03/12/2024 Encounter for gynecological examination (general) (routine) without abnormal findings (ICD-10 - Z01.419) PAP TEST WITH HPV TYPING WAS OBTAINED. REASSURED THE PAT THAT NO UTERINE PROLAPSE OR SIGNIFICANT CYSTORECTOCELE WERE NOTED. BOOKLET ON PELVIC SUPPORT PROBLEMS WAS GIVEN AND DISCUSSED. 03/12/2024 Encounter for screening mammogram for malignant neoplasm of breast (ICD-10 - Z12.31) REGULAR MAMMOGRAMS AND SBE'S WERE RECOMMENDED. 03/12/2024 Postmenopausal atrophic vaginitis (ICD-10 - N95.2) DISCUSSED FINDINGS, DX AND TX OPTIONS. HER COMPLAINT OF VAGINAL PRESSURE MAY BE DUE TO ATROPHY AND NOT ACTUAL UTERINE PROLAPSE. RECOMMENDED SHE TRY INTRAVAGINAL ESTROGEN. BENEFITS AND RISKS WERE DISCUSSED AND SHE AGREED. RX AND INSTRUCTIONS FOR ESTRADIOL TABS 10 MCG WERE GIVEN. 03/12/2024 Unspecified menopausal and perimenopausal disorder (ICD-10 - N95.9) DISCUSSED PERIMENOPAUSE AND MENOPAUSE AND SYMPTOMS ASSOCIATED WITH THESE. ESTROVEN OR REMIFEMEN WERE RECOMMENDED. IF NOT BETTER, RETURN TO OFFICE. Plan Of Treatment Pending Test Test Name Order Date MM Digital Mammo Screening 03/12/2024 Next Appt Details Provider Name:Mimi luevano, 03/25/2025 08:00:00 AM, [address], [address], [place], [address], Insurance Providers Payer Name Payer Address Payer Phone Subscriber Number Group Number Insured Name Patient Relationship to Insured Coverage Start Date Coverage End Date [employer] [address] [place], [place] [id number] [phone] [id number] PATRICA RAMÍREZ Spouse - patient is the spouse of the insured Medical (General) History Medical History History ICD Code Pure hypercholesterolemia, unspecified E 78.00 Surgical History Surgery Date(Month/Year) Appendectomy Breast Biopsy Colonoscopy Hospitalization History Reason Date(Month/Year) See Surgical Hx 2 Vaginal Deliveries
--- OUTSIDE RECORDS SUMMARY | 2024-10-25 07:53 | XMS_ITS | Data Portability ---
Author Organization JANICE ramon [facility] Address [address] [place] [address] Care Team Providers Care Lathe Machinist Name Role Phone TIN HOWARD Primary Care Provider Assessment No assessment recorded. Plan of Treatment Reminders Order Date Submit Date Provider Last Modified By Organization Details Last Modified Time Details Appointments None recorded. Lab urinalysis , dipstick 2022 023 [place] [address] _kiera [facility], [address] [place] [address], [address], 3 09:29:26 test, urine 2022 023 [place] [address] [facility], [address] [place] [address], [address], 3 09:29:24 Referral emergency medicine referral 2022 023 nruszala Not available 3 09:33:09 Procedures None recorded. Surgeries None recorded. Imaging None recorded. Medication Orders None recorded. Patient TargetsNo targets recorded. Patient InstructionsNo instructions recorded. Reason for Referral Emergency Medicine Referral for Abdominal pain Referring Physician: Estrella Morton, Urgent Care, Encounter Date: 03/29/2023 Results Created Date Observation Date Name Description Value Unit Range Abnormal Flag Note LastModifiedBy Organization Detail LastModifiedTime 03/29/20 23 03/29/2023 urina lysis , dipst ick Unknown Analyte Normal = light yellow Not Available _[facility] [address] [place] [address], [address], 03/29/2023 08:43:33 03/29/20 23 03/29/2023 urina lysis , dipst ick Unknown Analyte Normal = clear Not [facility] [address], [place], [address], 03/29/2023 08:43:33 03/29/20 23 03/29/2023 urina lysis , dipst ick Unknown Analyte Normal = negati ve Not Available [address] [place] [address], [place], [address], 03/29/2023 08:43:33 03/29/20 23 03/29/2023 urina lysis , dipst ick Unknown Analyte Normal = Negati ve Not Available [address] [place] [address], [place], [address], 03/29/2023 08:43:33 03/29/20 23 03/29/2023 urina lysis , dipst ick Unknown Analyte Normal = Negati ve Not Available [address] [place] [address], [place], [address], 03/29/2023 08:43:33 03/29/20 23 03/29/2023 urina lysis , dipst ick Unknown Analyte Normal = 1.010, 1.015, 1.020 Not Available [address] [place] [address], [place], [address], 03/29/2023 08:43:33 03/29/20 23 03/29/2023 urina lysis , dipst ick Unknown Analyte Normal = Negati ve Not Available [address] [place] [address], [place], [address], 03/29/2023 08:43:33 03/29/20 23 03/29/2023 urina lysis , dipst ick Unknown Analyte Normal = 6.5, 7.0, 7.5, 8.0 Not Available nataliia ortega [address], [place], [address], 03/29/2023 08:43:33 03/29/20 23 03/29/2023 urina lysis , dipst ick Unknown Analyte Normal = Negati ve Not Available nataliia [address], [place], [address], 03/29/2023 08:43:33 03/29/20 23 03/29/2023 urina lysis , dipst ick Unknown Analyte Normal = 0.2, 1.0 Not Available 2099nataliia [address], [place], [address], 03/29/2023 08:43:33 03/29/20 23 03/29/2023 urina lysis , dipst ick Unknown Analyte Normal = Negati ve Not Available [facility] [address], [place], [address], 03/29/2023 08:43:33 03/29/20 23 03/29/2023 urina lysis , dipst ick Unknown Analyte Normal = Negati ve Not Available nataliia [address], [place], [address], 03/29/2023 08:43:33 03/29/20 23 03/29/2023 urina lysis , dipst ick Unknown Analyte Light Yellow Not Available nataliia [address], [place], [address], 03/29/2023 08:43:33 03/29/20 23 03/29/2023 urina lysis , dipst ick Unknown Analyte Clear Not Available [address] [place] [address], [place], [address], 03/29/2023 08:43:33 03/29/20 23 03/29/2023 urina lysis , dipst ick Unknown Analyte Negati ve Not Available nataliia ortega [address], [place], [address], 03/29/2023 08:43:33 03/29/20 23 03/29/2023 urina lysis , dipst ick Unknown Analyte Negati ve Not Available nataliia ortega [address], [place], [address], 03/29/2023 08:43:33 03/29/20 23 03/29/2023 urina lysis , dipst ick Unknown Analyte Negati ve Not Available nataliia ortega [address], [place], [address], 03/29/2023 08:43:33 03/29/20 23 03/29/2023 urina lysis , dipst ick Unknown Analyte 1.010 Not Available kiera [address], [place], [address], 03/29/2023 08:43:33 03/29/20 23 03/29/2023 urina lysis , dipst ick Unknown Analyte Negati ve Not Available nataliia ortega [address], [place], [address], 03/29/2023 08:43:33 03/29/20 23 03/29/2023 urina lysis , dipst ick Unknown Analyte 7.0 Not Available kiera [address], [place], [address], 03/29/2023 08:43:33 03/29/20 23 03/29/2023 urina lysis , dipst ick Unknown Analyte Negati ve Not Available nataliia ortega [address], [place], [address], 03/29/2023 08:43:33 03/29/20 23 03/29/2023 urina lysis , dipst ick Unknown Analyte 0.2 E.U./d L Not Available [facility] [address], [place], [address], 03/29/2023 08:43:33 03/29/20 23 03/29/2023 urina lysis , dipst ick Unknown Analyte Negati ve Not Available [address] [place] [address], [place], [address], 03/29/2023 08:43:33 03/29/20 23 03/29/2023 urina lysis , dipst ick Unknown Analyte Negati ve Not Available [address] [place] [address], [place], [address], 03/29/2023 08:43:33 03/29/20 23 03/29/2023 pregn eunice test, urine Unknown Analyte Normal = Negati ve Not Available [address] [place] [address], [place], [address], 03/29/2023 08:43:53 03/29/20 23 03/29/2023 pregn eunice test, urine Unknown Analyte negati ve Not Available [address] [place] [address] [place], [address], 03/29/2023 08:43:53 Result Notes None recorded. Problems Name Problem SNOMED Code Status Onset Date Resolution Date Notes Provider Name and Address Organization Details Recorded Time Hypercholestero lemia 09433357 Active Ailynivy Oconnor null, [place] - [facility] 3 08:41:19 Iron deficiency 23378442 Active Ailyn Anastasia null, PA - [facility] 3 08:41:48 Problem Notes None recorded. Procedures Surgical History Date Name Laterality Status Provider Name and Address Organization Details Recorded Time appendectomy completed Ailyn Oconnor PA - [employer] 03/29/2023 08:42:59 Imaging Results None recorded. Procedure Notes None recorded. Medical Equipment None Reported. Allergies No known drug allergies Medications Name Sig Start Date Stop Date Status Note LastModified by Organization Details LastModified Time amoxicillin 500 mg capsule TAKE 1 CAPSULE BY MOUTH EVERY 8 HOURS FOR 7 DAYS 03/29 completed Not Available Not Available Not Available triamcinolo ne acetonide 0.1 % topical cream APPLY 1 APPLICATI ON TOPICALLY 2 TIMES A DAY 03/29 completed Not Available Not Available Not Available ciclopirox 8 % topical solution 1 APPL TOPICALLY BEDTIME FOR 4 WEEKS 03/29 completed Not Available Not Available Not Available pravastatin active Not Available Not A vailable Not Available Vitals Date Recorded Body height Body mass index (BMI) Body weight Respiratory rate Pain severity - 0-10 verbal numeric rating [Score] - Reported Oxygen saturation Oxygen saturation in Arterial blood by Pulse oximetry Body temperature Heart rate Systolic blood pressure Diastolic blood pressure Provider Name and Address Organization Details Last Updated DateTime 165.1 cm 25 kg/m2 30424.8 6 g 16 /min 8 99 % 99 % 98.6 [degF] 61 /min 124 mm[Hg] 78 mm[Hg] Ailyn Oconnor PA - [employer] [facility] 08:46:28 Social History Question Answer Notes LastModified by Organizat ion Details LastModified Time Tobacco Smoking Status Never Smoker Ailyn de PA - [facility] 03/29/2023 08:42:02 What Is Your Level Of Alcohol Consumption? None Information not available 03/29/2023 Have You Had Direct Contact, Or Contact During Intimacy, With Monkeypox Rash, Scabs, Or Body Fluids From A Person With Monkeypox? No Information not available 03/29/2023 Do You Use Any Illicit Or Recreational Drugs? No Information not available 03/29/2023 Have You Recently Traveled Abroad? No Information not available 03/29/2023 Sex: Unknown Functional Status None recorded. Mental Status None recorded. Family History Relationship Description Onset Age of this Age Resolved Age Notes LastModified by Organization Details LastModified Time Father No current problems or disability nruszala Not available 03/29 08:41:55 Mother No current problems or disability nruszala Not available 03/29 08:41:55 Medical History No medical history recorded. Gynecological History Statement/Question Response Date of LMP 02/19/2023 Is there any chance of ? No LMP Approximate Obstetrics History GPAL:G 0 P 0 0 0 0 Past Encounters Encounter ID Performer Location Encounter Start Date Encounter Closed Date Diagnosis/Indication Diagnosis SNOMED-CT Code Diagnosis ICD10 Code Diagnosis Note [id number] [address] [facility] [address] [place] [address] 10/23/2018 10:29:08 10/23/2018 11:58:27 [id number] [address] [facility] [facility] [address] [place] [address] 02/14/2022 09:47:54 02/14/2022 11:52:51 [id number] [address] [facility] [address] [place] [address] 11/03/2017 09:22:42 11/03/2017 10:25:12 [id number] Estrella Morton MD [address] [facility] [address] [place] [address] 03/29/2023 08:21:02 03/29/2023 09:31:36 Abdominal pain 19119459 R10.9 Abdo pain x 6 days, worse at night, colicky in nature location Right lumbar area.No other associated symptoms. HIstory appendecto my. Advised that [facility] can not effectivel y evaluate this pain wit the proper imaging and the ER would be best place to have a workup. patient agrees with plan.Will go to [facility] Health Concerns Section Related Observation LastModified by Organization Detai ls LastModified Time None Recorded Concern Status LastModified by Organization Details LastModified Time None Recorded Advance Directives Directive None Recorded Payers Encounter Date Sequence Insurance Name Policy Number Policy Tucker Covered Member ID Tucker Member ID Guarantor Name 02/14/[address] [facility] rPath PLAN (MEDICAID HMO) MICHAEL Martinez [id number] Tin Martinez 03/29/2023 1 [facility] - HEALTH NET PLAN (MEDICAID HMO) MCIHAEL Suero Garogorge [id number] Tin Martinez Notes Date Note Type Note Provider Name and Address Organization Details Recorded Time 3 text/html Abdominal PainReported bypatient.source of patient informationPatient arrived at Urgent Care ambulatory Location:[facility] Quality:sharp Severity:pain level 9/10; Cuurently pain is 1-2 but at night it is 8-9 Onset/Timing:wax/wane Context:no travel; No history kidney stones Modifying Factors:laying down Associated Symptoms:no fever; no chills; no nausea; no vomiting; no diarrhea; no constipation; no blood in the urine; no shortness of breath; no change in bowel/bladder habits Other:denies possible Estrella Morton MD [address] [place], [place] [address], [address], [place] - [facility] 03/29/2023 10:47:50 OBGyn Episode No OBEpisode recorded.
[2024-10-25 11:20] LABS: MANUAL DIFF FLAG NO
[2024-10-25 11:27] LABS: Basophils Percent Auto 0.7 % (0-2); Eosinophils Absolute Auto 0.1 X10*3/uL (0.0-0.4); Eosinophils Percent Auto 1.9 % (0-4); Hematocrit 40.1 % (37.0-47.0); Hemoglobin 13.6 g/dl (12.0-16.0); Imm Gran Abs Auto 0.01 X10*3/uL (0.00-0.03); Imm Gran Pct Auto 0.2 % (0.0-0.4); Lymphocytes Absolute Auto 1.8 X10*3/uL (1.2-4.9); Lymphocytes Percent Auto 31.4 % (20-40); Mean Corpuscular HGB Conc 33.9 g/dl (31.0-35.0); Mean Corpuscular Hemoglobin 28.9 pg (27.0-33.0); Mean Corpuscular Volume 85.3 fL (80.0-98.0); Mean Platelet Volume 9.9 fL (9.4-12.3); Monocytes Absolute Auto 0.3 X10*3/uL (0.1-1.2); Monocytes Percent Auto 5.8 % (2-11); Neutrophils Absolute Auto 3.4 x10*3/uL (2.0-8.3); Platelet Count 268 X10*3/uL (160-400); Red Cell Distribution Width 12.4 % (11.0-16.0); White Blood Count 5.7 X10*3/uL (4.8-10.8)
[2024-10-25 11:39] LABS: Appearance Urine Clear; Color Urine Yellow; Glucose Urine UA Negative (Negative); Leukocyte Esterase Urine Negative (Negative); Nitrite Urine Negative (Negative); PH 7.5 (5.0-9.0); Urine Blood Negative (Negative); Urine Ketones Negative (Negative); Urine Protein Negative (Neg-Trace)
[2024-10-25 11:45] LABS: Bacteria Urine None Seen (None Seen); Hyaline Casts Urine 0-2 /LPF (0-2); RBC Urine 0-2 /HPF (0-2); Squamous Epithelial Cell Urine 0-2 /HPF (0-2); WBC Urine 0-5 /HPF (0-5)
[2024-10-25 11:51] LABS: Alanine Aminotransferase 21 U/L (0-31); Alkaline Phosphatase 94 U/L (39-117); Anion Gap 12 (12-20); Aspartate Amino Transferase 15 U/L (5-31); Bilirubin Total 0.6 mg/dL (0.0-1.0); Blood Urea Nitrogen 16 mg/dL (9-16); Calcium 9.4 mg/dL (8.4-10.2); Carbon Dioxide 25 mmol/L (22-29); Chloride 108 mmol/L (96-108); Cholesterol 278 mg/dL (<200); Estimated Glomerular Filt Rate > 60; Glucose Fasting 84 mg/dL (60-99); HDL Cholesterol 51 mg/dL (>40); Iron 136 mcg/dL (30-160); LDL Cholesterol Calculated 202 mg/dL (<100); Percent Iron Saturation 41 % (15-50); Potassium 3.9 mmol/L (3.3-5.1); Sodium 141 mmol/L (135-145); Total Iron Binding Capacity 332 mcg/dL (228-428); Total Protein 7.2 g/dL (6.5-8.0); Triglycerides 125 mg/dL (<150); Unsaturated Iron Binding 196 ug/dL
[2024-10-25 12:07] LABS: TSH reflex Free T4 1.11 uIU/mL (0.32-4.0); Vitamin D 25-OH Total 54.3 ng/mL (>30)
[2024-10-25 12:11] LABS: Folate 11.9 ng/mL (> or = 4.0); Vitamin B12 635 pg/mL (200-900)
== END 2024-10-25 07:52 | disposition home or self-care (01) ==
LOC: HO.HMGCLDS 07:51
PROVIDERS: PCP Internal Medicine; Visit Provider Internal Medicine
DX: Z00.00 Encounter for general adult medical examination without abnormal findings (principal); E78.5 Hyperlipidemia, unspecified; D50.9 Iron deficiency anemia, unspecified
CPT/HCPCS: 36415; 80053; 80061; 81001; 82306; 82607; 82746; 83540; 84443; 85025

== ENCOUNTER 2024-10-27 11:50 | Outpatient (AMB) | payer OTHER, SELFPAY ==
--- OUTSIDE RECORDS SUMMARY | 2024-10-27 11:52 | XMS_ITS | Patient Health Record ---
Author Organization [facility] Address [address] [place] [address] Care Team Providers Care Adventure Therapist Name Role Phone Mimi Barnes Unavailable [phone] Allergies No Known Allergies Results Component Value Reference Range Notes Urinalysis Reviewed date:03/12/2024 04:05:44 PM Interpretation: Performing Lab: Notes/Report: PH 5.0 PROTEIN NEG GLUCOSE NEG BLOOD NEG [id number] IGP No Culture 30 Plus Reviewed date:03/17/2024 04:25:38 PM Interpretation: Performing Lab:[facility] [place], [address] Mary, [address], [place], Phone - [phone], Director - [facility] Notes/Report: Clinical Information:VAGINAL/CERVICAL, LMP 12/ 023 [id number] No. of containers..01 ThinPrep Vial DIAGNOSIS: NEGATIVE FOR INTRAEPITHELIAL LESION OR MALIGNANCY. CELLULAR CHANGES ASSOCIATED WITH ATROPHY ARE PRESENT. Specimen adequacy: Satisfactory for evaluation. Endocervical component may not be distinguished in cases of atrophy. Clinician provided ICD10: Z0 1.419 Performed by: Deisy morel, Tree Worker (ASCP) . . Note: The Pap smear [...] Criteria not met, HPV Genotype not performed. PDF Report Reviewed date:03/17/2024 04:25:07 PM Interpretation: Performing Lab:[facility], Rosa [address], [address], [place], Phone - [phone], Director - [facility] Notes/Report: Clinical Information:VAGINAL/CERVICAL, LMP / 023 [id number] No. of containers..01 ThinPrep Vial Reason For Referral No Information Medications Medication [...] Status Risk Notes Problem Postmenopausal atrophic vaginitis (27385627) Postmenopausal atrophic vaginitis (N95.2) Active confirmed Problem Unspecified menopausal and perimenopausal disorder (N95.9) Active confirmed Problem Pure hypercholesterolemia (886836877) Pure hypercholesterol emia, unspecified (E78.00) Active confirmed Vital Signs Temperature 97.1 degrees Fahrenheit 03/12/2024 Blood pressure diastolic 88 mm Hg 03/12/2024 Height 64.5 in 03/12/2024 Blood pressure systolic 128 mm Hg 03/12/2024 Weight 140 lbs 03/12/2024 BMI 23.66 kg/m2 03/12/2024 Encounters Encounter Location Date Provider Diagnosis [address] [place] [address] 03/12/2024 Mimi Barnes Encounter for gynecological examination [...] Provider Name:Mimi luevano, 03/25/2025 08:00:00 AM, [address], [address], [place], [address], Insurance Providers Payer Name Payer Address Payer Phone Subscriber Number Group Number Insured Name Patient Relationship to Insured Coverage Start Date Coverage End Date [employer] [address] [place], [place] [id number] [phone] [id number] PATRICA RAMÍREZ Spouse - patient is the spouse of the insured Medical (General) History Medical History History ICD Code Pure hypercholesterolemia, unspecified E 78.00 Surgical History Surgery Date(Month/Year) Appendectomy Breast Biopsy Colonoscopy Hospitalization History Reason Date(Month/Year) See Surgical Hx 2 Vaginal Deliveries
--- OUTSIDE RECORDS SUMMARY | 2024-10-27 11:53 | XMS_ITS | Data Portability ---
Author Organization JANICE ramon [facility] Address [address] [place] [address] Care Team Providers Care Rotary Veneer Machine Operator Name Role Phone TIN HOWARD Primary Care Provider Assessment No assessment recorded. Plan of Treatment Reminders Order Date Submit Date Provider Last Modified By Organization Details Last Modified Time Details Appointments None recorded. Lab urinalysis , dipstick 2022 023 [place] [address] _kiera [facility], [address] [place] [address], [address], 3 09:29:26 test, urine 2022 023 [place] [address] [facility], [address] [place] [address], [address], 3 09:29:24 Referral emergency medicine referral 2022 [...] = light yellow Not Available _[facility] [address] [place] [address], [address], 03/29/2023 08:43:33 03/29/20 23 03/29/2023 urina lysis , dipst ick Unknown Analyte Normal = clear Not Available [facility] [address], [place], [address], 03/29/2023 08:43:33 03/29/20 23 03/29/2023 urina lysis , dipst ick Unknown Analyte Normal = negati ve Not Available [address] [place] [address], [place], [address], 03/29/2023 08:43:33 03/29/20 23 03/29/2023 urina lysis , dipst ick Unknown Analyte Normal = Negati ve Not Available [address] [place] [address], [place], [address], 03/29/2023 08:43:33 03/29/20 23 03/29/2023 urina lysis , dipst ick Unknown Analyte Normal = Negati ve Not Available [address] [place] [address], [place], [address], 03/29/2023 08:43:33 03/29/20 23 03/29/2023 urina lysis , dipst ick Unknown Analyte Normal = 1.010, 1.015, 1.020 Not Available [address] [place] [address], [place], [address], 03/29/2023 08:43:33 03/29/20 23 03/29/2023 urina lysis , dipst ick Unknown Analyte Normal = Negati ve Not Available [address] [place] [address], [place], [address], 03/29/2023 08:43:33 03/29/20 23 03/29/2023 urina lysis , dipst ick Unknown Analyte Normal = 6.5, 7.0, 7.5, 8.0 Not Available nataliia ortega [address], [place], [address], 03/29/2023 08:43:33 03/29/20 23 03/29/2023 urina lysis , dipst ick Unknown Analyte Normal = Negati ve Not Available nataliia [address], [place], [address], 03/29/2023 08:43:33 03/29/20 23 03/29/2023 urina lysis , dipst ick Unknown Analyte Normal = 0.2, 1.0 Not Available 2099nataliia [address], [place], [address], 03/29/2023 08:43:33 03/29/20 23 03/29/2023 urina lysis , dipst ick Unknown Analyte Normal = Negati ve Not Available [facility] [address], [place], [address], 03/29/2023 08:43:33 03/29/20 23 03/29/2023 urina lysis , dipst ick Unknown Analyte Normal = Negati ve Not Available nataliia [address], [place], [address], 03/29/2023 08:43:33 03/29/20 23 03/29/2023 urina lysis , dipst ick Unknown Analyte Light Yellow Not Available nataliia [address], [place], [address], 03/29/2023 08:43:33 03/29/20 23 03/29/2023 urina lysis , dipst ick Unknown Analyte Clear Not Available [address] [place] [address], [place], [address], 03/29/2023 08:43:33 03/29/20 23 03/29/2023 urina lysis , dipst ick Unknown Analyte Negati ve Not Available nataliia ortega [address], [place], [address], 03/29/2023 08:43:33 03/29/20 23 03/29/2023 urina lysis , dipst ick Unknown Analyte Negati ve Not Available nataliia ortega [address], [place], [address], 03/29/2023 08:43:33 03/29/20 23 03/29/2023 urina lysis , dipst ick Unknown Analyte Negati ve Not Available nataliia ortega [address], [place], [address], 03/29/2023 08:43:33 03/29/20 23 03/29/2023 urina lysis , dipst ick Unknown Analyte 1.010 Not Available kiera [address], [place], [address], 03/29/2023 08:43:33 03/29/20 23 03/29/2023 urina lysis , dipst ick Unknown Analyte Negati ve Not Available nataliia ortega [address], [place], [address], 03/29/2023 08:43:33 03/29/20 23 03/29/2023 urina lysis , dipst ick Unknown Analyte 7.0 Not Available kiera [address], [place], [address], 03/29/2023 08:43:33 03/29/20 23 03/29/2023 urina lysis , dipst ick Unknown Analyte Negati ve Not Available nataliia ortega [address], [place], [address], 03/29/2023 08:43:33 03/29/20 23 03/29/2023 urina lysis , dipst ick Unknown Analyte 0.2 E.U./d L Not Available [facility] [address], [place], [address], 03/29/2023 08:43:33 03/29/20 23 03/29/2023 urina lysis , dipst ick Unknown Analyte Negati ve Not Available [address] [place] [address], [place], [address], 03/29/2023 08:43:33 03/29/20 23 03/29/2023 urina lysis , dipst ick Unknown Analyte Negati ve Not Available [address] [place] [address], [place], [address], 03/29/2023 08:43:33 03/29/20 23 03/29/2023 pregn eunice test, urine Unknown Analyte Normal = Negati ve Not Available [address] [place] [address], [place], [address], 03/29/2023 08:43:53 03/29/20 23 03/29/2023 pregn eunice test, urine Unknown Analyte negati ve Not Available [address] [place] [address] [place], [address], 03/29/2023 08:43:53 Result Notes None recorded. Problems Name Problem SNOMED Code Status Onset Date Resolution Date Notes Provider Name and Address Organization Details Recorded Time Hypercholestero lemia 43130917 Active Ailynivy Oconnor null, PA - [facility] 3 08:41:19 Iron deficiency 32692655 Active Ailyn Anastasia null, PA - [facility] 3 08:41:48 Problem Notes None recorded. Procedures Surgical History Date Name Laterality Status Provider Name and Address Organization Details Recorded Time appendectomy completed Ailyn Oconnor PA - [facility] 03/29/2023 08:42:59 Imaging Results None recorded. Procedure [...] Last Updated DateTime 165.1 cm 25 kg/m2 22184.8 6 g 16 /min 8 99 % 99 % 98.6 [degF] 61 /min 124 mm[Hg] 78 mm[Hg] Ailyn Oconnor PA - [employer] 08:46:28 Social History Question Answer Notes LastModified [...] SNOMED-CT Code Diagnosis ICD10 Code Diagnosis Note [id number] [address] [address] [place] [address] 10/23/2018 10:29:08 10/23/2018 11:58:27 [id number] [address] [facility] [facility] [address] [place] [phone] 02/14/2022 09:47:54 02/14/2022 11:52:51 [id number] [address] [facility] [address] [place] [phone] 11/03/2017 09:22:42 11/03/2017 10:25:12 [id number] Estrella Morton MD [address] [address] [place] [address] 03/29/2023 08:21:02 03/29/2023 09:31:36 Abdominal pain 20836211 R10.9 Abdo pain x 6 days, worse at night, colicky in nature location Right lumbar area.No other associated symptoms. HIstory appendecto my. Advised that [facility] can not effectivel y evaluate this pain wit the proper imaging and the ER would be best place to have a workup. patient agrees with plan.Will go to [facility] Health Concerns Section Related Observation LastModified by Organization Detai ls LastModified Time None Recorded Concern Status LastModified by Organization Details LastModified Time None Recorded Advance Directives Directive None Recorded Payers Encounter Date Sequence Insurance Name Policy Number Policy Tucker Covered Member ID Tucker Member ID Guarantor Name 02/14/2022 1 [facility] VSS Monitoring PLAN (MEDICAID HMO) MICHAEL Martinez [id number] Tin Martinez 03/29/2023 1 [facility] [employer] - HEALTH NET PLAN (MEDICAID HMO) MICHAEL Suero Garogorge [id number] Tin Martinez Notes Date Note Type Note Provider Name and Address Organization Details Recorded Time 3 text/html Abdominal PainReported bypatient.source of patient informationPatient arrived at Urgent Care ambulatory Location:[facility] Quality:sharp Severity:pain level 9/10; Cuurently pain is 1-2 but at night it is 8-9 Onset/Timing:wax/wane Context:no travel; No history kidney stones Modifying Factors:laying down Associated Symptoms:no fever; no chills; no nausea; no vomiting; no diarrhea; no constipation; no blood in the urine; no shortness of breath; no change in bowel/bladder habits Other:denies possible Estrella Morton MD [address] [place], [place] [address], [address], [place] - [facility] 03/29/2023 10:47:50 OBGyn Episode No OBEpisode recorded.
[2024-10-27 11:59] VITALS: BP 110/70; PULSE 71; RESP 18; TEMP 36.7; O2SAT 95; BMI 27.1
--- NOTE | 2024-10-27 11:59 | A.OFFPC_ITS ---
Vital Signs 10/27/24 11:59 Height 5 ft 2 in Weight 148 lb BMI 27.1 BP 110/70 Blood Pressure Location Rt brachial Position Sitting Respiration 18 Pulse 71 Pulse Source Pulse Oximeter Temp 98.0 F Temp Source Oral Pulse Oximetry (%) 95 Oxygen Delivery Method Room Air Intake Visit Reasons: Annual PE Intake Note: Pt is here today for PE. Allergies pravastatin Adverse Reaction (Intermediate, Verified 10/27/24 13:02) hot flashes atorvastatin Adverse Reaction (Verified 10/27/24 13:00) myalgia Medication List - Last Reconciled 10/27/24 by Nimo Gorman MD atorvastatin 20 mg PO BEDTIME Tobacco use date assessed: 10/27/24 Dental Screening Dental Screen Date: 10/27/24 Did you have a dental visit in the last 12 months?: Yes Did you have a dental problem in the last 6 months where you did not have access to dental care?: No Was dental information given to patient?: Patient has dentist HPI Annual PE HPI Details Pt presents for PE. She complains of chronic right thumb and index finger pain tingling and numbness sensation for the last few months getting worse despite wearing wrist splint at night PFSH Medical History (Updated 10/27/24 @ 13:08 by Nimo Gorman MD) Breast mass, right Acute pain of left lower extremity Normal Pap smear Right shoulder pain Iron deficiency anemia Annual physical exam History of gastritis Chronic iron deficiency anemia Hyperlipidemia Surgical History H/O colonoscopy History of esophagogastroduodenoscopy (EGD) History of appendectomy Family History Father HTN (hypertension) Mother No problems noted. Social History Housing: House Patient Tobacco Use Status: Never used Tobacco e-Cigarette/Vaping Use: Never Used Second Hand Smoke Exposure: No service: No Current occupational status: employed Cognitive needs: No Hearing needs: No Vision needs: Yes Questionnaire PHQ-9 Over the last 2 weeks, how often have you been bothered by any of the following problems? 1. Little interest or pleasure in doing things: not at all 2. Feeling down, depressed, or hopeless: not at all 3. Trouble falling or staying asleep, or sleeping too much: not at all 4. Feeling tired or having little energy: not at all 5. Poor appetite or overeating: not at all 6. Feeling bad about yourself - or that you are a failure or have let yourself or your family down: not at all 7. Trouble concentrating on things, such as reading the newspaper or watching television: not at all 8. Moving or speaking so slowly that other people could have noticed. Or the opposite - being so fidgety or restless that you have been moving around a lot more than usual: not at all 9. Thoughts that you would be better off or of hurting yourself in some way: not at all Total score: 0 Depression Screening Interpretation: Negative Depression Screening Done: Yes 21890 - PHQ-9 Billing: Yes Source: Developed by Drs. Agapito Gibbs, Renetta Funk, Speedy Lane and colleagues, with an educational callum from [employer]. Thrive Questionnaire Date Thrive assessed: 10/27/24 I am a: Patient What is your living situation today?: I choose not to answer this question Within the past 12 months, did the food you bought not last and you didn't have the money to get more?: I choose not to answer this question Within the past 12 months, did you worry whether your food would run out before you got money to buy more?: I choose not to answer this question Do you have trouble paying for medicines?: I choose not to answer this question Do you have trouble getting transportation to medical appointments?: I choose not to answer this question Do you have trouble paying your heating and electricity bill?: I choose not to answer this question Do you have trouble taking care of your child, family member or friend?: I choos e not to answer this question Do you have trouble with day-to-day activities such as bathing, preparing meals, shopping, managing finances, etc.?: I choose not to answer this question Are you currently unemployed and looking for a job?: I choose not to answer this question Are you interested in more education?: I choose not to answer this question Please select the resources that you would like help with: None Currently or been in a relationship where the following occur: I choose not to answer THRIVE Score: 0 AUDIT C Alcohol Use Questionnaire (AUDIT-C) 1. How often do you have a drink containing alcohol?: Never 3. How often do you have six or more drinks on one occasion?: Never Total Score: 0 ANGIE-7 AMB Questionnaire ANGIE-7 Date ANGIE - 7 assessed: 10/27/24 Feeling nervous, anxious, or on edge: 0 = Not at all Not being able to stop or control worryin = Not at all Worrying too much about different things: 0 = Not at all Trouble relaxin = Not at all Being so restless that it is hard to sit still: 0 = Not at all Becoming easily annoyed or irritable: 0 = Not at all Feeling afraid as if something awful might happen: 0 = Not at all Total ANGIE-7 score (0-4 normal; 5-9 mild; 10-14 moderate; 15-21 severe): 0 Source: Developed by Drs. Agapito Gibbs, Renetta Funk, Speedy Lane and colleagues, with an educational callum from [employer]. ANGIE-7 Assessment Billing ANGIE-7 Assessment Tool: ANGIE-7 Assessment 93349 Review of Systems Const All systems reviewed & are unremarkable except as noted in HPI and below Eyes Reports no additional complaints ENT Reports no additional complaints Card Reports no additional complaints Resp Reports no additional complaints GI Reports no additional complaints Reports no additional complaints Physical exam (Primary Care) Vital Signs: Last Vital Signs Temp 98.0 F 10/27/24 11:59 Pulse 71 10/27/24 11:59 Resp 18 10/27/24 11:59 BP 110/70 10/27/24 11:59 Pulse Ox 95 10/27/24 11:59 Oxygen Delivery Method Room Air 10/27/24 11:59 BMI result Body Mass Index 27.1 Tobacco/Smoking Status: Tobacco use Status Tobacco use date assessed 10/27/24 10/27/24 12:09 Patient Tobacco Use Status Never used Tobacco 10/27/24 12:09 e-Cigarette/Vaping Use Never Used 10/27/24 12:00 PHQ-9: PHQ-9 Score PHQ-9: Total score 0 10/27/24 12:09 Depression Screening Interpretation: Negative Thrive Assessment: Date of Thrive Assessment Date Thrive assessed 10/27/24 10/27/24 12:09 Currently or been in a relationship where the following occur: I choose not to answer Const General: no acute distress HENMT Head: Yes normal to inspection Face and sinus: Yes normal facial exam Mouth: Normal oral and palatal mucosa present Eyes General: appearance normal, both eyes and all related structures Neck Neck: Yes no lymphadenopathy and Yes supple Resp Effort & Inspection: normal respiratory effort Auscultation: clear to auscultation bilaterally Cardio Rhythm: regular rhythm Heart sounds: S1 normal heart sound present and S2 normal heart sound present GI Inspection: Yes normal to inspection Palpation (GI): Soft to palpation Percussion: Yes normal to percussion Auscultation: normal bowel sounds Coding Level of Care Code Est Pt Prev Care 40-64y(80206) Diagnoses Hyperlipidemia E78.5 Annual physical exam Z00.00 Iron deficiency anemia D50.9 Carpal tunnel syndrome of right wrist G56.01 Additional Codes ANGIE-7 Assessment Billing - ANGIE-7 Assessment Tool: ANGIE-7 Assessment 90493 ([id number]) PHQ-9 - 42733 - PHQ-9 Billing: Yes ([id number]) Assessment & Plan Assessment & Plan (1) Hyperlipidemia: Comment: Patient stopped taking atorvastatin because of hot flashes Code(s): E78.5 - Hyperlipidemia, unspecified Category: Medical Plan: Try Crestor 10 mg daily check lipid profile in 2 months and 1 year (2) Annual physical exam: Code(s): Z00.00 - Encounter for general adult medical examination without abnormal findings Category: Medical Plan: Well-balanced diet regular physical activity discussed with the patient. She is up-to-date with the mammogram Pap smear by obstetrician and gynaecologist and had negative colonoscopy in 2016 (3) Iron deficiency anemia: Comment: Secondary to heavy menses Code(s): D50.9 - Iron deficiency anemia, unspecified Category: Medical Plan: Monitor CBC and iron count (4) Carpal tunnel syndrome of right wrist: Code(s): G56.01 - Carpal tunnel syndrome, right upper limb Category: Medical Plan: Referred for EMG Orders: Orders Lipid Panel 2 Months E78.5 - Hyperlipidemia, unspecified Comprehensive [place]. Panel Fast 1 Year D50.9 - Iron deficiency anemia, unspecified, E78.5 - Hyperlipidemia, unspecified, Z00.00 - Encounter for general adult medical examination without abnormal findings Vitamin D 25-OH Total 1 Year D50.9 - Iron deficiency anemia, unspecified, E78.5 - Hyperlipidemia, unspecified, Z00.00 - Encounter for general adult medical examination without abnormal findings NE electromyogram (EMG) Today G56.01 - Carpal tunnel syndrome, right upper limb Lipid Panel 1 Year D50.9 - Iron deficiency anemia, unspecified, E78.5 - Hyperlipidemia, unspecified, Z00.00 - Encounter for general adult medical examination without abnormal findings Complete Blood Count Auto Diff 1 Year D50.9 - Iron deficiency anemia, unspecified, E78.5 - Hyperlipidemia, unspecified, Z00.00 - Encounter for general adult medical examination without abnormal findings TSH reflex Free T4 1 Year D50.9 - Iron deficiency anemia, unspecified, E78.5 - Hyperlipidemia, unspecified, Z00.00 - Encounter for general adult medical examination without abnormal findings IRON PROFILE 1 Year D50.9 - Iron deficiency anemia, unspecified, E78.5 - Hyperlipidemia, unspecified, Z00.00 - Encounter for general adult medical examination without abnormal findings Medications: New rosuvastatin (Crestor) 10 mg PO DAILY 90 tabs 3RF
== END 2024-10-27 13:08 | disposition home or self-care (01) ==
PROVIDERS: PCP Internal Medicine; Visit Provider Internal Medicine
DX: E78.5 Hyperlipidemia, unspecified (principal); Z00.00 Encounter for general adult medical examination without abnormal findings; D50.9 Iron deficiency anemia, unspecified; G56.01 Carpal tunnel syndrome, right upper limb

== ENCOUNTER → 2024-10-27 11:50 | Outpatient (BNVA) | payer OTHER, SELFPAY | PROVIDERS: PCP Internal Medicine; Visit Provider Internal Medicine | DX: Z00.00 Encounter for general adult medical examination without abnormal findings (principal); E78.5 Hyperlipidemia, unspecified; D50.9 Iron deficiency anemia, unspecified; G56.01 Carpal tunnel syndrome, right upper limb | CPT/HCPCS: 96127 ==

== ENCOUNTER 2024-12-17 14:38 | Outpatient (REF) | payer OTHER, SELFPAY ==
--- NOTE | 2024-12-17 14:44 | EMG_ITS ---
Chief complaint: Pain in right thumb, right hand numbness Reason for referral: Evaluate for Carpal Tunnel Syndrome Referred by: Dr. Gorman Procedure done: Right upper extremity NCS/EMG Precautions and/or limitations: None The limb temperature was monitored continuously and remained between 32-36 degrees C during the performance of the NCS. Nerve Conduction Studies Anti Sensory Summary Table ?Stim Site NR Onset (ms) Norm Onset (ms) Peak (ms) Norm Peak (ms) O-P Amp (?V) Norm O-P Amp Site1 Site2 Delta-0 (ms) Dist (cm) Mathieu (m/s) Norm Mathieu (m/s) Right Median Anti Sensory (2nd Digit) Wrist ? 2.1 2.8 <3.6 62.5 >10 Wrist 2nd Digit 2.1 14.0 67 Right Ulnar Anti Sensory (5th Digit) Wrist ? 2.3 2.9 <3.7 41.4 >15.0 Wrist 5th Digit 2.3 14.0 61 Motor Summary Table ?Stim Site NR Onset (ms) Norm Onset (ms) O-P Amp (mV) Norm O-P Amp iAmp (mV) Amp (1st) (%) Site1 Site2 Delta-0 (ms) Dist (cm) Mathieu (m/s) Norm Mathieu (m/s) Right Median Motor (Abd Poll Brev) Wrist ? 2.7 <3.9 11.5 >4.5 13.4 100.0 Elbow Wrist 3.7 20.0 54 >45 Elbow ? 6.4 11.4 13.2 99.1 Right Ulnar Motor (Abd Dig Minimi) Wrist ? 2.6 <3.0 11.0 >5 13.0 100.0 B Elbow Wrist 2.9 0.0 >45 B Elbow ? 5.5 9.0 11.0 81.8 A Elbow B Elbow 1.6 18.5 116 >45 A Elbow ? 7.1 9.4 11.2 85.5 Comparison Summary Table ?Stim Site NR Peak (ms) Norm Peak (ms) P-T Amp (?V) Site1 Site2 Delta-P (ms) Norm Delta (ms) Right Median/Radial Dig I Comparison (Digit 1 - 10cm) Median ? 2.3 <2.9 90.1 Median Radial 0.1 Radial ? 2.4 <2.8 39.1 EMG ?Side Muscle Nerve Root Ins Act Fibs Psw Amp Dur Poly Recrt Int Pat Comment Right 1stDorInt Ulnar C8-T1 Nml Nml Nml Nml Nml 0 Nml Complete Right FlexCarRad Median C6-7 Nml Nml Nml Nml Nml 0 Nml Complete Right Biceps Musculocut C5-6 Nml Nml Nml Nml Nml 0 Nml Complete Right Triceps Radial C6-7-8 Nml Nml Nml Nml Nml 0 Nml Complete Right Deltoid Axillary C5-6 Nml Nml Nml Nml Nml 0 Nml Complete FINDINGS: All motor and sensory nerves tested showed normal latencies, amplitudes and conduction velocities. Concentric needle EMG was performed in selected muscles of the right upper extremity. Study did not reveal signs of electric abnormalities as shown in the table above. IMPRESSION: 1. This is a normal study. 2. There is no electrodiagnostic evidence for median neuropathy, ulnar neuropathy, brachial plexopathy, or cervical radiculopathy. Thank you for your kind referral. Zuleyma Shoemaker MD, ALBA Board Certified, [place] Board of Physical Medicine and Rehabilitation (ABPMR) Board Certified, [place] Board of Electrodiagnostic Medicine (ABEM) CODIN [id number] MTDD
--- OUTSIDE RECORDS SUMMARY | 2024-12-17 16:51 | XMS_ITS | Data Portability ---
Author Organization JANICE ramon [facility] Address [address] [place] [address] Care Team Providers Care Personal Fitness Trainer Name Role Phone TIN HOWARD Primary Care Provider Assessment No assessment recorded. Plan of Treatment Reminders Order Date Submit Date Provider Last Modified By Organization Details Last Modified Time Details Appointments None recorded. Lab urinalysis , dipstick 2022 023 [place] [address] _[facility], [address] [place] [address], [phone], 3 09:29:26 test, urine 2022 023 [place] [address] [facility], [address] [place] [address], [phone], 3 09:29:24 Referral emergency medicine referral 2022 [...] yellow Not Available _[facility] [address] [place] [address], [phone], 03/29/2023 08:43:33 03/29/20 23 03/29/2023 urina lysis , dipst ick Unknown Analyte Normal = clear Not Available [facility] [address], [place], [address], 03/29/2023 08:43:33 03/29/20 23 03/29/2023 urina lysis , dipst ick Unknown Analyte Normal = negati ve Not Available [address] [place] [address], [place], [phone], 03/29/2023 08:43:33 03/29/20 23 03/29/2023 urina lysis , dipst ick Unknown Analyte Normal = Negati ve Not Available [address] [place] [address], [place], [phone], 03/29/2023 08:43:33 03/29/20 23 03/29/2023 urina lysis , dipst ick Unknown Analyte Normal = Negati ve Not Available [address] [place] [address], [place], [address], 03/29/2023 08:43:33 03/29/20 23 03/29/2023 urina lysis , dipst ick Unknown Analyte Normal = 1.010, 1.015, 1.020 Not Available [address] [place] [address], [place], [address], 03/29/2023 08:43:33 03/29/20 23 03/29/2023 urina lysis , dipst ick Unknown Analyte Normal = Negati ve Not Available [address] [place] [address], [place], [address], 03/29/2023 08:43:33 03/29/20 23 03/29/2023 urina lysis , dipst ick Unknown Analyte Normal = 6.5, 7.0, 7.5, 8.0 Not Available nataliia ortega [address], [place], [address], 03/29/2023 08:43:33 03/29/20 23 03/29/2023 urina lysis , dipst ick Unknown Analyte Normal = Negati ve Not Available nataliia [address], [place], [address], 03/29/2023 08:43:33 03/29/20 23 03/29/2023 urina lysis , dipst ick Unknown Analyte Normal = 0.2, 1.0 Not Available [address]99nataliia [address], [place], [address], 03/29/2023 08:43:33 03/29/20 23 03/29/2023 urina lysis , dipst ick Unknown Analyte Normal = Negati ve Not Available [facility] [address], [place], [address], 03/29/2023 08:43:33 03/29/20 23 03/29/2023 urina lysis , dipst ick Unknown Analyte Normal = Negati ve Not Available nataliia [address], [place], [address], 03/29/2023 08:43:33 03/29/20 23 03/29/2023 urina lysis , dipst ick Unknown Analyte Light Yellow Not Available nataliia [address], [place], [address], 03/29/2023 08:43:33 03/29/20 23 03/29/2023 urina lysis , dipst ick Unknown Analyte Clear Not Available [address] [place] [address], [place], [phone], 03/29/2023 08:43:33 03/29/20 23 03/29/2023 urina lysis , dipst ick Unknown Analyte Negati ve Not Available nataliia ortega [address], [place], [address], 03/29/2023 08:43:33 03/29/20 23 03/29/2023 urina lysis , dipst ick Unknown Analyte Negati ve Not Available nataliia ortega [address], [place], [address], 03/29/2023 08:43:33 03/29/20 23 03/29/2023 urina lysis , dipst ick Unknown Analyte Negati ve Not Available nataliia ortega [address], [place], [address], 03/29/2023 08:43:33 03/29/20 23 03/29/2023 urina lysis , dipst ick Unknown Analyte 1.010 Not Available kiera [address], [place], [address], 03/29/2023 08:43:33 03/29/20 23 03/29/2023 urina lysis , dipst ick Unknown Analyte Negati ve Not Available nataliia ortega [address], [place], [address], 03/29/2023 08:43:33 03/29/20 23 03/29/2023 urina lysis , dipst ick Unknown Analyte 7.0 Not Available kiera [address], [place], [address], 03/29/2023 08:43:33 03/29/20 23 03/29/2023 urina lysis , dipst ick Unknown Analyte Negati ve Not Available nataliia ortega [address], [place], [address], 03/29/2023 08:43:33 03/29/20 23 03/29/2023 urina lysis , dipst ick Unknown Analyte 0.2 E.U./d L Not Available [facility] [address], [place], [address], 03/29/2023 08:43:33 03/29/20 23 03/29/2023 urina lysis , dipst ick Unknown Analyte Negati ve Not Available [address] [place] [address], [place], [address], 03/29/2023 08:43:33 03/29/20 23 03/29/2023 urina lysis , dipst ick Unknown Analyte Negati ve Not Available [address] [place] [address], [place], [address], 03/29/2023 08:43:33 03/29/20 23 03/29/2023 pregn eunice test, urine Unknown Analyte Normal = Negati ve Not Available [address] [place] [address], [place], [address], 03/29/2023 08:43:53 03/29/20 23 03/29/2023 pregn eunice test, urine Unknown Analyte negati ve Not Available [address] [place] [address] [place], [address], 03/29/2023 08:43:53 Result Notes None recorded. Problems Name Problem SNOMED Code Status Onset Date Resolution Date Notes Provider Name and Address Organization Details Recorded Time Hypercholestero lemia 93996660 Active Ailynivy Oconnor null, PA - [facility] 3 08:41:19 Iron deficiency 68697153 Active Ailyn Anastasia null, PA - [facility] 3 08:41:48 Problem Notes None recorded. Procedures Surgical History Date Name Laterality Status Provider Name and Address Organization Details Recorded Time appendectomy completed Ailyn Oconnor PA - [facility] 03/29/2023 08:42:59 Imaging Results None recorded. Procedure [...] Last Updated DateTime 165.1 cm 25 kg/m2 87843.8 6 g 16 /min 8 99 % 99 % 98.6 [degF] 61 /min 124 mm[Hg] 78 mm[Hg] Ailyn Oconnor PA - [facility] 08:46:28 Social History Question Answer Notes LastModified [...] SNOMED-CT Code Diagnosis ICD10 Code Diagnosis Note [id number] [address] [place] [phone] 10/23/2018 10:29:08 10/23/2018 11:58:27 [id number] [address] [facility] [address] [place] [phone] 02/14/2022 09:47:54 02/14/2022 11:52:51 [id number] [address] [place] [phone] 11/03/2017 09:22:42 11/03/2017 10:25:12 [id number] Estrella Morton MD [address] [place] [address] 03/29/2023 08:21:02 03/29/2023 09:31:36 Abdominal pain 49647683 R10.9 Abdo pain x 6 days, worse at night, colicky in nature location Right lumbar area.No other associated symptoms. HIstory appendecto my. Advised that [facility] can not effectivel y evaluate this pain wit the proper imaging and the ER would be best place to have a workup. patient agrees with plan.Will go to [facility] Health Concerns Section Related Observation LastModified by Organization Detai ls LastModified Time None Recorded Concern Status LastModified by Organization Details LastModified Time None Recorded Advance Directives Directive None Recorded Payers Encounter Date Sequence Insurance Name Policy Number Policy Tucker Covered Member ID Tucker Member ID Guarantor Name 02/14/2022 1 [facility] [place] [employer] [place] MICHAEL Martinez [id number] Tin Martinez 03/29/2023 1 [employer] - HEALTH NET PLAN (MEDICAID HMO) MICHAEL Suero Garogorge [id number] Tin Martinez Notes Date Note Type Note Provider Name and Address Organization Details Recorded Time 3 text/html Abdominal PainReported bypatient.source of patient informationPatient arrived at Urgent Care ambulatory [facility] [place] Quality:sharp Severity:pain level 9/10; Cuurently pain is 1-2 but at night it is 8-9 Onset/Timing:wax/wane Context:no travel; No history kidney stones Modifying Factors:laying down Associated Symptoms:no fever; no chills; no nausea; no vomiting; no diarrhea; no constipation; no blood in the urine; no shortness of breath; no change in bowel/bladder habits Other:denies possible Estrella Morton MD [address] [place], [place] [address], [address], [place] - [facility] 03/29/2023 10:47:50 OBGyn Episode No OBEpisode recorded.
== END 2024-12-17 14:39 | disposition home or self-care (01) ==
LOC: HO.NEURO 14:38
PROVIDERS: PCP Internal Medicine; Visit Provider Internal Medicine
DX: G56.01 Carpal tunnel syndrome, right upper limb (principal)
CPT/HCPCS: 95860; 95886; 95909

== ENCOUNTER → 2024-12-17 14:44 | Outpatient (BNV) | payer OTHER, SELFPAY | PROVIDERS: PCP Internal Medicine; Visit Provider Physical Medicine & Rehabilitation | DX: R20.0 Anesthesia of skin (principal); R20.2 Paresthesia of skin | CPT/HCPCS: 95886; 95909 ==

== ENCOUNTER 2025-06-12 07:55 | Outpatient (AMB) | payer OTHER, SELFPAY ==
--- NOTE | 2025-06-12 08:08 | MHC.PC.OV ---
Vital Signs 06/12/25 08:10 Height 5 ft 2 in BP 122/78 Blood Pressure Location Rt brachial Position Sitting Respiration 18 Pulse 79 Pulse Source Pulse Oximeter Temp 98.2 F Temp Source Oral Pulse Oximetry (%) 99 Oxygen Delivery Method Room Air Intake Visit Reasons: Urinary tract infection Intake Note: Pt is here today for a sick visit. Pt c/o pain when urinating. Pt states that she was seen in Urgent Care and she was given antibiotic. Pt also c/o pain in her knees. Allergies pravastatin Adverse Reaction (Intermediate, Verified 10/27/24 13:02) hot flashes atorvastatin Adverse Reaction (Verified 10/27/24 13:00) myalgia Medication List - Last Reconciled 06/12/25 by Nimo Gorman MD nitrofurantoin monohyd/m-cryst 100 mg 1 cap PO BID rosuvastatin (Crestor) 10 mg PO DAILY Tobacco use date assessed: 06/12/25 Dental Screening Dental Screen Date: 10/27/24 HPI Urinary tract infection HPI Details Pt presents for a follow-up visit to walk in. She developed dysuria and lower back pain and was seen in the walk in. Urinalysis and urine cultures were obtained and patient was started on Macrobid. She reports persistent lower back discomfort worse with position changes. She denies pain radiating to lower extremities, change in the bowel or bladder function. [facility] Medical History (Updated 06/14/25 @ 07:54 by Nimo Gorman MD) UTI (urinary tract infection) Breast mass, right Acute pain of left lower extremity Normal Pap smear Right shoulder pain Iron deficiency anemia Annual physical exam History of gastritis Chronic iron deficiency anemia Hyperlipidemia Surgical History H/O colonoscopy History of esophagogastroduodenoscopy (EGD) History of appendectomy Family History Father HTN (hypertension) Mother No problems noted. Social History Housing: House Patient Tobacco Use Status: Never used Tobacco e-Cigarette/Vaping Use: Never Used Second Hand Smoke Exposure: No service: No Current occupational status: employed Cognitive needs: No Hearing needs: No Vision needs: Yes Questionnaire PHQ-9 Over the last 2 weeks, how often have you been bothered by any of the following problems? 1. Little interest or pleasure in doing things: several days 2. Feeling down, depressed, or hopeless: several days 3. Trouble falling or staying asleep, or sleeping too much: not at all 4. Feeling tired or having little energy: not at all 5. Poor appetite or overeating: not at all 6. Feeling bad about yourself - or that you are a failure or have let yourself or your family down: not at all 7. Trouble concentrating on things, such as reading the newspaper or watching television: not at all 8. Moving or speaking so slowly that other people could have noticed. Or the opposite - being so fidgety or restless that you have been moving around a lot more than usual: not at all 9. Thoughts that you would be better off or of hurting yourself in some way: not at all Total score: 2 Depression Screening Interpretation: Negative Depression Screening Done: Yes Source: Developed by Drs. Agapito Gibbs, Renetta Funk, Speedy Lane and colleagues, with an educational callum from [employer]. Thrive Questionnaire Date Thrive assessed: 10/27/24 I am a: Patient What is your living situation today?: I choose not to answer this question Within the past 12 months, did the food you bought not last and you didn't have the money to get more?: I choose not to answer this question Within the past 12 months, did you worry whether your food would run out before you got money to buy more?: I choose not to answer this question Do you have trouble paying for medicines?: I choose not to answer this question Do you have trouble getting transportation to medical appointments?: I choose not to answer this question Do you have trouble paying your heating and electricity bill?: I choose not to answer this question Do you have trouble taking care of your child, family member or friend?: I choose not to answer this question Do you have trouble with day-to-day activities such as bathing, preparing meals, shopping, managing finances, etc.?: I choose not to answer this question Are you currently unemployed and looking for a job?: I choose not to answer this question Are you interested in more education?: I choose not to answer this question Please select the resources that you would like help with: None Currently or been in a relationship where the following occur: I choose not to answer THRIVE Score: 0 ANGIE-7 AMB Questionnaire ANGIE-7 Date ANGIE - 7 assessed: 10/27/24 Feeling nervous, anxious, or on edge: 0 = Not at all Not being able to stop or control worryin = Not at all Worrying too much about different things: 0 = Not at all Trouble relaxin = Not at all Being so restless that it is hard to sit still: 0 = Not at all Becoming easily annoyed or irritable: 0 = Not at all Feeling afraid as if something awful might happen: 0 = Not at all Total ANGIE-7 score (0-4 normal; 5-9 mild; 10-14 moderate; 15-21 severe): 0 Source: Developed by Drs. Agapito Gibbs, Renetta Funk, Speedy Lane and colleagues, with an educational callum from [employer]. Review of Systems Const All systems reviewed & are unremarkable except as noted in HPI and below ENT Reports no additional complaints Card Reports no additional complaints Resp Reports no additional complaints GI Reports no additional complaints Reports no additional complaints Physical exam (Primary Care) Vital Signs: Last Vital Signs Temp 98.2 F 06/12/25 08:10 Pulse 79 06/12/25 08:10 Resp 18 06/12/25 08:10 BP 122/78 06/12/25 08:10 Pulse Ox 99 06/12/25 08:10 Oxygen Delivery Method Room Air 06/12/25 08:10 Tobacco/Smoking Status: Tobacco use Status Tobacco use date assessed 06/12/25 06/12/25 08:15 Patient Tobacco Use Status Never used Tobacco 06/12/25 08:10 e-Cigarette/Vaping Use Never Used 06/12/25 08:10 PHQ-9: PHQ-9 Score PHQ-9: Total score 2 06/12/25 08:38 Depression Screening Interpretation: Negative Thrive Assessment: Date of Thrive Assessment Date Thrive assessed 10/27/24 06/12/25 08:10 Currently or been in a relationship where the following occur: I choose not to answer Const General: no acute distress Resp Effort & Inspection: normal respiratory effort Auscultation: clear to auscultation bilaterally Cardio Rhythm: regular rhythm Heart sounds: S1 normal heart sound present and S2 normal heart sound present GI Inspection: Yes normal to inspection Palpation (GI): Soft to palpation Percussion: Yes normal to percussion Auscultation: normal bowel sounds General: Yes Bimanual renal exam normal bilaterally and Yes no CVA tenderness Back/Spine/Pelvis Other: There is lower lumbar region paraspinal tenderness straight leg rising 90 degrees bilaterally Back: no CVA tenderness Results AMB Urinalysis, Automated UA Leukoctes 0 Anastasiia/uL Last Edit by Marline Renner Osvaldo on 06/12/25 08:37 UA Nitrite Negative Last Edit by Marline Renner Osvaldo on 06/12/25 08:37 UA Urobilinogen 0.2 mg/dL Last Edit by Marline Renner [facility] on 06/12/25 08:37 UA Protein 0 mg/dL Last Edit by Marline Renner Osvaldo on 06/12/25 08:37 UA pH 7.0 Last Edit by Marline Renner [facility] on 06/12/25 08:37 UA Blood 0 Naveed/uL Last Edit by Marline Renner [facility] on 06/12/25 08:37 UA Specific [place] 1.010 Last Edit by Marline Renner [facility] on 06/12/25 08:37 UA Ketone Negative Last Edit by Marline Renner Osvaldo on 06/12/25 08:37 UA Bilirubin 0 mg/dL Last Edit by Marline Renner [facility] on 06/12/25 08:37 UA Glucose 0 mg/dL Last Edit by Marline Renner [facility] on 06/12/25 08:37 Results Reviewed Results Reviewed: Laboratory Last Values Urine pH (Auto) 7.0 06/12/25 08:36 Specific [place] (Auto) 1.010 06/12/25 08:36 Urine Protein (Auto) 0 mg/dL 06/12/25 08:36 Glucose (UA)(Auto) 0 mg/dL 06/12/25 08:36 Urine Ketones (Auto) Negative 06/12/25 08:36 Urine Blood (Auto) 0 Naveed/uL 06/12/25 08:36 Urine Nitrite (Auto) Negative 06/12/25 08:36 Urine Bilirubin (Auto) 0 mg/dL 06/12/25 08:36 Urine Urobilinogen (Auto) 0.2 mg/dL 06/12/25 08:36 Leukocyte Esterase (Auto) 0 Anastasiia/uL 06/12/25 08:36 Coding Level of Care Code Est Pt Level 3 (72511) Diagnoses UTI (urinary tract infection) N39.0 Back pain M54.9 Assessment & Plan Assessment & Plan (1) UTI (urinary tract infection): Code(s): N39.0 - Urinary tract infection, site not specified Category: Medical Plan: Patient will complete a Macrobid and check results of the urine culture from walk in (2) Back pain: Code(s): M54.9 - Dorsalgia, unspecified Category: Medical Plan: For lower back pain back stretches and exercises discussed. She was advised to take Advil as needed Orders: Orders AMB Urinalysis Automated 06/12/25 Z13.9 - Encounter for screening, unspecified XR knee standing BI 06/12/25 M25.561 - Pain in right knee, M25.562 - Pain in left knee
[2025-06-12 08:10] VITALS: BP 122/78; PULSE 79; RESP 18; TEMP 36.8; O2SAT 99
== END 2025-06-12 15:07 | disposition home or self-care (01) ==
PROVIDERS: PCP Internal Medicine; Visit Provider Internal Medicine
DX: Z13.9 Encounter for screening, unspecified (principal)

== ENCOUNTER → 2025-06-12 07:55 | Outpatient (BNVA) | payer OTHER, SELFPAY | PROVIDERS: PCP Internal Medicine; Visit Provider Internal Medicine | DX: M25.561 Pain in right knee (principal); N39.0 Urinary tract infection, site not specified; M54.9 Dorsalgia, unspecified; M25.562 Pain in left knee | CPT/HCPCS: 81003; 99212 ==

== ENCOUNTER 2025-06-16 11:57 | Outpatient (REF) | payer OTHER, SELFPAY ==
--- NOTE | ~2025-06-16 | XR_ITS ---
EXAMINATION: XR KNEE AP STANDING CLINICAL INFORMATION: Bilateral knee pain. COMPARISON: None available. TECHNIQUE: AP bilateral standing view of the knees was obtained. FINDINGS: Limited exam. RIGHT KNEE: There is partial narrowing of medial and lateral joint spaces. The lateral intercondylar spine is minimally peaked. There is an enthesophyte involving the medial aspect of the fibular head. LEFT KNEE: Joint spaces are relatively well-preserved. Lateral intercondylar spine is peaked. There is an enthesophyte involving the medial aspect of the fibular head. XR/XR knee standing BI IMPRESSION: Near normal bilateral knees with very minimal degenerative changes. Electronically signed by: Gasper Sequeira MD 06/16/2025 12:12 PM EDT
--- OUTSIDE RECORDS SUMMARY | 2025-06-16 15:02 | XMS_ITS | Encounter Summary ---
Author Organization [facility] Address [address] [place] [phone] Phone Care Team Providers Care Welding Machine Operator Gas Name Role Phone Nimo Gorman MD Primary Care Provider [phone] Encounter Details Date Type Department Care Team (Late st Contact Info) Description 01/09/2023 Ancillary Orders [facility] [address] [place] [address] Nimo Gorman MD [address] [place] [address] Dr Garcese ENOCH [address] Follow-up exam Social History Tobacco Use Types Packs/Day Years Used Date Smoking Tobacco: Never Assessed Education Answer Date Recorded Are you interested in more education? Not on rose e 01/05/2023 Are you concerned about learning? Not on file 01/05/2023 No 01/05/2023 No 01/05/2023 Comments No Sex and Gender Information Value Date Recorded Sex Assigned at Female 01/10/2022 12:05 PM EDT Legal Sex Female 12:01 PM EDT Gender Identity Female 01/10/2022 12:05 PM EDT Sexual Orientation Straight 01/10/2022 12 :05 PM EDT documented as of this encounter Plan of Treatment Upcoming Encounters Date Type Department Care Team (Late st Contact Info) Description 07/01/2024 Procedure Pass [facility] [address] [place] [address] 07/07/2025 12:[address] [facility] [address] [place] [address] [address] [place] [address] Nimo Gorman MD [address] [place] [address] documented as of this encounter Visit Diagnoses Diagnosis Follow-up exam Unspecified follow-up examination documented in this encounter Care Teams Welding Machine Operator Gas Relationship Specialty Start Date End Date Nimo Gorman MD [address] [place] [address] PCP - General Internal Medicine 01/10/22 documented as of this encounter Additional Source Comments The information contained in this document represents components of the legal health record. It is not the complete legal health record.[facility]
--- OUTSIDE RECORDS SUMMARY | 2025-06-16 15:02 | XMS_ITS | Clinical Summary ---
Author Organization [facility] Address [address] [place] [address] [place] [phone] Phone Care Team Providers Care Water Fabricator Operator Name Role Phone Nimo Gorman MD Primary Care Provider [phone] Allergies No known active allergies Family History Medical History Relation Comments Prostate cancer Father Ashkenazi Methodist ancestry Neg Hx Breast cancer Neg Hx Ovarian cancer Neg Hx Relation Status Comments Father Social History Tobacco Use Types Packs/Day Years Used Date Smoking Tobacco: Never Assessed Tobacco Cessation:Counseling Given: Not Answered Education Answer Date Recorded Are you interested in more education? Not on rose e 01/05/2023 Are you concerned about learning? Not on file 01/05/2023 No 01/05/2023 No 01/05/2023 Digital Access Answer Date Recorded No 02/06/2023 No 02/06/2023 Reliable internet access at home? Not on file 02/06/2023 Device with a working camera? Not on file Comments No Sex and Gender Information Value Date Recorded Sex Assigned at Female 01/10/2022 12:05 PM EDT Legal Sex Female 12:01 PM EDT Gender Identity Female 01/10/2022 12:05 PM EDT Sexual Orientation Straight 01/10/2022 12 :05 PM EDT Plan of Treatment Upcoming Encounters Date Type Department Care Team (Late st Contact Info) Description 07/01/2024 Procedure Pass [facility] [address] [place] [address] 07/07/2025 12:45 PM EDT Appointment [facility] [address] [place] [address] [address] [place] [address] Nimo Gorman MD [facility] [place] [address] Medical Devices Implanted Type Area Legal Stenographer Device Identifier Shelf Expiration Date Model / Serial / Lot Marker Ultraclip Ii 17ga 10cm Breast Tissue Ribbon Shaped Titanium Bx/[id number] - [id number] Implanted:Qty: 1 on 02/07/2022 at [facility] Right: Breast CR [employer] 10/07/2024 [id number] / / [id number] Insurance [place] [employer] [facility] EPO [facility] [place] [address] [address] [place] [address] POS EPO [facility] [place] [address] [facility] [place] [address] Care Teams Water Fabricator Operator Relationship Specialty Start Date End Date Nimo Gorman MD [address] [facility] [place] [address] PCP - General Internal Medicine 01/10/22 Additional Source Comments The information contained in this document represents components of the legal health record. It is not the complete legal health record.[facility]
--- OUTSIDE RECORDS SUMMARY | 2025-06-16 15:02 | XMS_ITS | Encounter Summary ---
Author Organization [facility] Address [address] [place] [address] Phone Care Team Providers Care Tool Smith Name Role Phone Nimo Gorman MD Primary Care Provider [phone] Encounter Details Date Type Department Care Team (Late st Contact Info) Description 05/30/2022 Procedure Pass [facility] [address] [place] [address] Social History Tobacco Use Types Packs/Day Years Used Date Smoking Tobacco: Never Assessed Comments Unknown Sex and Gender Information Value Date Recorded Sex Assigned at Female 01/10/2022 12:05 PM EDT Legal Sex Female 12:01 PM EDT Gender Identity Female 01/10/2022 12:05 PM EDT Sexual Orientation Straight 01/10/2022 12 :05 PM EDT documented as of this encounter Plan of Treatment Upcoming Encounters Date Type Department Care Team (Late st Contact Info) Description 07/01/2024 Procedure Pass [facility] [address] [place] [address] 07/07/2025 12:45 PM EDT Appointment [facility] [address] [place] [address] Nimo Gorman MD [address] [place] [address] [place] [address] documented as of this encounter Visit Diagnoses Not on filedocumented in this encounter Care Teams Tool Smith Relationship Specialty Start Date End Date Nimo Gorman MD [address] [facility] [place] [address] PCP - General Internal Medicine 01/10/22 documented as of this encounter Additional Source Comments The information contained in this document represents components of the legal health record. It is not the complete legal health record.[facility]
--- OUTSIDE RECORDS SUMMARY | 2025-06-16 15:02 | XMS_ITS | Encounter Summary ---
Author Organization [facility] Address [address] [place] [phone] Phone Care Team Providers Care Extension Service Specialist In Charge Name Role Phone Nimo Gorman MD Primary Care Provider [phone] Encounter Details Date Type Department Care Team (Late st Contact Info) Description 07/11/2022 Procedure Pass [facility] [address] [place] [address] Social History Tobacco Use Types Packs/Day Years Used Date Smoking Tobacco: Never Assessed Comments No Sex and Gender Information Value Date Recorded Sex Assigned at Female 01/10/2022 12:05 PM EDT Legal Sex Female 12:01 PM EDT Gender Identity Female 01/10/2022 12:05 PM EDT Sexual Orientation Straight 01/10/2022 12 :05 PM EDT documented as of this encounter Plan of Treatment Upcoming Encounters Date Type Department Care Team (Late st Contact Info) Description 07/01/2024 Procedure Pass [facility] [address] [place] [address] 07/07/2025 12:45 PM EDT Appointment [facility] [address] [place] [address] Nimo Gorman MD [address] [place] [address] [place] [address] documented as of this encounter Visit Diagnoses Not on filedocumented in this encounter Care Teams Extension Service Specialist In Charge Relationship Specialty Start Date End Date Nimo Gorman MD [address] [facility] [place] [address] PCP - General Internal Medicine 01/10/22 documented as of this encounter Additional Source Comments The information contained in this document represents components of the legal health record. It is not the complete legal health record.[facility]
--- OUTSIDE RECORDS SUMMARY | 2025-06-16 15:02 | XMS_ITS | Encounter Summary ---
Author Organization [facility] Address [address] [place] [address] Phone Care Team Providers Care County Or City Auditor Name Role Phone Nimo Gorman MD Primary Care Provider [phone] Encounter Details Date Type Department Care Team (Late st Contact Info) Description 07/11/2022 Procedure Pass [facility] [address] [place] [address] Social History Tobacco Use Types Packs/Day Years [...] st Contact Info) Description 07/01/2024 Procedure Pass [facility] [address] [place] [address] 07/07/2025 12:45 PM EDT Appointment [facility] [address] [place] [address] Nimo Gorman MD [address] [place] [address] [place] [address] documented as of this encounter Visit Diagnoses Not on filedocumented in this encounter Care Teams [place] City Auditor Relationship Specialty Start Date End Date Nimo Gorman MD [address] [place] [address] PCP - General Internal Medicine 01/10/22 documented as of this encounter Additional Source Comments The information contained in this document represents components of the legal health record. It is not the complete legal health record.[facility]
--- OUTSIDE RECORDS SUMMARY | 2025-06-16 15:02 | XMS_ITS | Encounter Summary ---
Author Organization [facility] Address [address] [place] [id number] Phone Care Team Providers Care Flight Inspector Name Role Phone Nimo Gorman MD Primary Care Provider [phone] Encounter Details Date Type Department Care Team (Late st Contact Info) Description 01/09/2023 Ancillary Orders [facility] Radiology Department 75 [facility] [id number] [place] [address] Nimo Gorman MD [address] [place] [address] Dr Garcese [place] [id number] Follow-up exam Social History Tobacco Use Types [...] st Contact Info) Description 07/01/2024 Procedure Pass [facility] 2[facility] [place] [address] 07/07/2025 12:45 PM EDT Appointment [facility] 75 [facility] 2nd [place] [address] Nimo Gorman MD [address] [place] [address] documented as of this encounter Results * BI US BREAST LIMITED (RIGHT) (10/31/2023 3:09 PM EST) Anatomical Region Laterality Modality Breast Right, Breast Bilateral Right U ltrasound 10/31/2023 2:25 PM EST Impressions 10/31/2023 4:39 PM EST Stable probably benign mass in the central right breast at 8:00, 3 to 4 cm from the nipple through 12/2021, and right 7:00 non-mass hypoechoic area at 7:00, 3 to 4 cm from the nipple through 07/2022. Continued follow-up imaging is recommended with right diagnostic mammogram and ultrasound in 6 months, at which time the patient will be due for bilateral mammography. BI-RADS 3 PROBABLY BENIGN Short interval follow-up suggested Results and recommendations were communicated to the patient at time of examination. The breast imaging department will assist the patient in scheduling the recommended follow-up imaging. ATTESTATION: Jami Haywood, as teaching physician have reviewed the images, if any, for this patient's exam, and if necessary, have edited the report originally created by Bekah Martinez. Narrative 10/31/2023 4:39 PM EST BI MAMMOGRAM DIAGNOSTIC WITH TOMOSYNTHESIS WITH CAD (RIGHT), BI US BREAST LIMITED (RIGHT) Additional patient information: Follow-up of previously right breast mass, status post benign and concordant ultrasound-guided biopsy 02/17/2022. An additional finding first identified on ultrasound 07/11/2022 recommended for short-term follow-up. COMPARISON: Comparison is made with relevant prior imaging. Breast composition: The breast tissue is extremely dense which lowers the sensitivity of mammography. FINDINGS: Right Mammogram: Stable oval, equal density mass in the central breast at middle depth containing biopsy clip. No new suspicious calcifications or other abnormalities in the right breast. Right Ultrasound: Targeted ultrasound was performed in the area of prior findings. Right 8:00, 3 to 4 cm, stable 1.4 x 0.6 x 1.1 cm oval circumscribed hypoechoic mass containing the biopsy marker denoting previous benign biopsy, unchanged from prior when it measured 1.2 x 0.6 x 1.0 cm on 01/06/2022. Right 7:00, 3 to 4 cm from the nipple, stable to decreased 0.6 x 0.5 x 0.5 cm non-mass hypoechoic area without internal vascularity, unchanged from when first imaged 07/11/2022 when it measured 0.5 x 0.6 x 0.6 cm. Procedure Note Jami Eduardo MD - 10/31/2023 BI MAMMOGRAM DIAGNOSTIC WITH TOMOSYNTHESIS WITH CAD (RIGHT), BI US BREASTLIMITED (RIGHT) Additional patient information: Follow-up of previously right breast mass,status post benign and concordant ultrasound-guided biopsy 02/17/2022. Anadditional finding first identified on ultrasound 07/11/2022 recommendedfor short-term follow-up. COMPARISON: Comparison is made with relevant prior imaging. Breast composition: The breast tissue is extremely dense which lowers thesensitivity of mammography. FINDINGS: Right Mammogram: Stable oval, equal density mass in the central breast at middle depthcontaining biopsy clip. No new suspicious calcifications or otherabnormalities in the right breast. Right Ultrasound: Targeted ultrasound was performed in the area of priorfindings. Right 8:00, 3 to 4 cm, stable 1.4 x 0.6 x 1.1 cm oval circumscribedhypoechoic mass containing the biopsy marker denoting previous benignbiopsy, unchanged from prior when it measured 1.2 x 0.6 x 1.0 cm on01/06/2022. Right 7:00, 3 to 4 cm from the nipple, stable to decreased 0.6 x 0.5 x 0.5cm non-mass hypoechoic area without internal vascularity, unchanged fromwhen first imaged 07/11/2022 when it measured 0.5 x 0.6 x 0.6 cm. IMPRESSION: Stable probably benign mass in the central right breast at 8:00, 3 to 4 cmfrom the nipple through 12/2021, and right 7:00 non-mass hypoechoic area at7:00, 3 to 4 cm from the nipple through 07/2022. Continued follow-upimaging is recommended with right diagnostic mammogram and ultrasound in 6months, at which time the patient will be due for bilateral mammography. BI-RADS 3 PROBABLY BENIGN Short interval follow-up suggested Results and recommendations were communicated to the patient at time ofexamination. The breast imaging department will assist the patient inscheduling the recommended follow-up imaging. ATTESTATION: Jami Haywood, as teaching physician have reviewed theimages, if any, for this patient's exam, and if necessary, have edited thereport originally created by Bekah Martinez. us Nimo Gorman MD IMG US BREAST Final Result * BI MAMMOGRAM DIAGNOSTIC WITH TOMOSYNTHESIS WITH CAD (RIGHT) (10/31/2023 2:22 PM EST) Anatomical Region Laterality Modality Breast Right, Breast Bilateral Right M ammography 10/31/2023 2:25 PM EST Impressions 10/31/2023 4:39 PM EST Stable probably benign mass in the central right breast at 8:00, 3 to 4 cm from the nipple through 12/2021, and right 7:00 non-mass hypoechoic area at 7:00, 3 to 4 cm from the nipple through 07/2022. Continued follow-up imaging is recommended with right diagnostic mammogram and ultrasound in 6 months, at which time the patient will be due for bilateral mammography. BI-RADS 3 PROBABLY BENIGN Short interval follow-up suggested Results and recommendations were communicated to the patient at time of examination. The breast imaging department will assist the patient in scheduling the recommended follow-up imaging. ATTESTATION: Jami Haywood, as teaching physician have reviewed the images, if any, for this patient's exam, and if necessary, have edited the report originally created by Bekah Martinez. Narrative 10/31/2023 4:39 PM EST BI MAMMOGRAM DIAGNOSTIC WITH TOMOSYNTHESIS WITH CAD (RIGHT), BI US BREAST LIMITED (RIGHT) Additional patient information: Follow-up of previously right breast mass, status post benign and concordant ultrasound-guided biopsy 02/17/2022. An additional finding first identified on ultrasound 07/11/2022 recommended for short-term follow-up. COMPARISON: Comparison is made with relevant prior imaging. Breast composition: The breast tissue is extremely dense which lowers the sensitivity of mammography. FINDINGS: Right Mammogram: Stable oval, equal density mass in the central breast at middle depth containing biopsy clip. No new suspicious calcifications or other abnormalities in the right breast. Right Ultrasound: Targeted ultrasound was performed in the area of prior findings. Right 8:00, 3 to 4 cm, stable 1.4 x 0.6 x 1.1 cm oval circumscribed hypoechoic mass containing the biopsy marker denoting previous benign biopsy, unchanged from prior when it measured 1.2 x 0.6 x 1.0 cm on 01/06/2022. Right 7:00, 3 to 4 cm from the nipple, stable to decreased 0.6 x 0.5 x 0.5 cm non-mass hypoechoic area without internal vascularity, unchanged from when first imaged 07/11/2022 when it measured 0.5 x 0.6 x 0.6 cm. Procedure Note Jami Eduardo MD - 10/31/2023 BI MAMMOGRAM DIAGNOSTIC WITH TOMOSYNTHESIS WITH CAD (RIGHT), BI US BREASTLIMITED (RIGHT) Additional patient information: Follow-up of previously right breast mass,status post benign and concordant ultrasound-guided biopsy 02/17/2022. Anadditional finding first identified on ultrasound 07/11/2022 recommendedfor short-term follow-up. COMPARISON: Comparison is made with relevant prior imaging. Breast composition: The breast tissue is extremely dense which lowers thesensitivity of mammography. FINDINGS: Right Mammogram: Stable oval, equal density mass in the central breast at middle depthcontaining biopsy clip. No new suspicious calcifications or otherabnormalities in the right breast. Right Ultrasound: Targeted ultrasound was performed in the area of priorfindings. Right 8:00, 3 to 4 cm, stable 1.4 x 0.6 x 1.1 cm oval circumscribedhypoechoic mass containing the biopsy marker denoting previous benignbiopsy, unchanged from prior when it measured 1.2 x 0.6 x 1.0 cm on01/06/2022. Right 7:00, 3 to 4 cm from the nipple, stable to decreased 0.6 x 0.5 x 0.5cm non-mass hypoechoic area without internal vascularity, unchanged fromwhen first imaged 07/11/2022 when it measured 0.5 x 0.6 x 0.6 cm. IMPRESSION: Stable probably benign mass in the central right breast at 8:00, 3 to 4 cmfrom the nipple through 12/2021, and right 7:00 non-mass hypoechoic area at7:00, 3 to 4 cm from the nipple through 07/2022. Continued follow-upimaging is recommended with right diagnostic mammogram and ultrasound in 6months, at which time the patient will be due for bilateral mammography. BI-RADS 3 PROBABLY BENIGN Short interval follow-up suggested Results and recommendations were communicated to the patient at time ofexamination. The breast imaging department will assist the patient inscheduling the recommended follow-up imaging. ATTESTATION: IJami, as teaching physician have reviewed theimages, if any, for this patient's exam, and if necessary, have edited thereport originally created by Bekah Martinez. Nimo Gorman MD IMG MG EXAMS Final Result documented in this encounter Visit Diagnoses Diagnosis Follow-up exam Unspecified follow-up examination Follow-up exam Unspecified follow-up examination Follow-up exam Unspecified follow-up examination documented in this encounter Care Teams Flight Inspector Relationship Specialty Start Date End Date Nimo Gorman MD [address] [place] [address] PCP - General Internal Medicine 01/10/22 documented as of this encounter Additional Source Comments The information contained in this document represents components of the legal health record. It is not the complete legal health record.[facility]
--- OUTSIDE RECORDS SUMMARY | 2025-06-16 15:02 | XMS_ITS | Encounter Summary ---
Author Organization [facility] Address [address] [place] [phone] Phone Care Team Providers Care Civil Structural Designer Name Role Phone Nimo Gorman MD Primary Care Provider [phone] Encounter Details Date Type Department Care Team (Late st Contact Info) Description 10/31/2023 Procedure Pass [facility] for [facility] Imaging [address] [place] [id number] Social History Tobacco Use Types Packs/Day Years [...] st Contact Info) Description 07/01/2024 Procedure Pass [facility] for [facility] Imaging [address] [place] [address] 07/07/2025 12:45 PM EDT Appointment [facility] Imaging [address] [address] Nimo Gorman MD [facility] [place] [address] documented as of this encounter Visit Diagnoses Not on filedocumented in this encounter Care Teams Civil Structural Designer Relationship Specialty Start Date End Date Nimo Gorman MD [address] [place] [address] PCP - General Internal Medicine 01/10/22 documented as of this encounter Additional Source Comments The information contained in this document represents components of the legal health record. It is not the complete legal health record.[facility]
--- OUTSIDE RECORDS SUMMARY | 2025-06-16 15:02 | XMS_ITS | Encounter Summary ---
Author Organization [facility] Address [address] [place] [phone] Phone Care Team Providers Care Kennel Supervisor Name Role Phone Nimo Gorman MD Primary Care Provider [phone] Encounter Details Date Type Department Care Team (Late st Contact Info) Description 01/09/2023 Procedure Pass [facility] for Breast Imaging [address] [place] [id number] Social History Tobacco Use Types Packs/Day Years [...] st Contact Info) Description 07/01/2024 Procedure Pass [facility] for Breast Imaging [address] [address] 07/07/2025 12:45 PM EDT Appointment [facility] for Breast Imaging [address] [place] [address] Nimo Gorman MD [address] [facility] [place] [address] documented as of this encounter Visit Diagnoses Not on filedocumented in this encounter Care Teams Kennel Supervisor Relationship Specialty Start Date End Date Nimo Gorman MD [address] [facility] [place] [address] PCP - General Internal Medicine 01/10/22 documented as of this encounter Additional Source Comments The information contained in this document represents components of the legal health record. It is not the complete legal health record.[facility]
--- OUTSIDE RECORDS SUMMARY | 2025-06-16 15:02 | XMS_ITS | Encounter Summary ---
Author Organization [facility] Address [address] [place] [address] Phone Care Team Providers Care Flooring Helper Name Role Phone Niom Gorman MD Primary Care Provider [phone] Encounter Details Date Type Department Care Team (Late st Contact Info) Description 10/31/2023 Ancillary Orders [facility] 75 [facility] OBC-3-[address] [place] [address] Nimo Gorman MD [facility] [facility] [address] [place] [address] Abnormal finding on breast imaging (Primary Dx) Social History Tobacco Use Types Packs/Day Years [...] st Contact Info) Description 07/01/2024 Procedure Pass [facility] for Breast Imaging [address] [address] 07/07/2025 12:45 PM EDT Appointment [facility] for Breast Imaging [address] [address] Nimo Gorman MD [facility] [place] [address] documented as of this encounter Results * BI US BREAST LIMITED (RIGHT) (07/01/2024 1:54 PM EDT) Anatomical Region Laterality Modality Breast Right, Breast Bilateral Right U ltrasound 07/01/2024 1:19 PM EDT Impressions 07/01/2024 2:26 PM EDT Stable right breast findings for 2 years consistent with benign etiology. No mammographic evidence of malignancy in either breast. BI-RADS 2 BENIGN Results and recommendations were communicated to the patient at time of examination. Narrative 07/01/2024 2:26 PM EDT BI MAMMOGRAM DIAGNOSTIC WITH TOMOSYNTHESIS WITH CAD (BILATERAL), BI US BREAST LIMITED (RIGHT) Additional patient information: Follow-up of prior right breast findings and annual of the left. Status post prior right breast biopsy revealing benign results. COMPARISON: Comparison is made with relevant prior imaging. Breast composition: The breast tissue is extremely dense which lowers the sensitivity of mammography. FINDINGS: Right Mammogram: Stable oval equal density mass is present in the lower slightly outer right breast at mid depth with ribbon clip marker at site corresponding to site of prior benign biopsy. No new suspicious finding in the right breast. Right Ultrasound: Targeted ultrasound was performed in the area of prior imaging concern. * At 8:00, 3 to 4 cm from the nipple, again seen is a stable 1.3 x 0.7 x 1.0 cm mass containing a biopsy clip marker consistent with the biopsy-proven benign mass, not significantly changed since ultrasound 01/06/2022. * At 7:00, 3 to 4 cm from the nipple, again seen is the somewhat non-mass hypoechoic area measuring 0.6 x 0.3 x 0.3 cm, previously measured 0.6 x 0.5 x 0.5 cm, followed followed since ultrasound 07/11/2022 and considered benign. Left Mammogram: No abnormal masses, suspicious calcifications, or other significant findings are identified mammographically in the left breast. Procedure Note Dio Calvert MD - 07/01/2024 BI MAMMOGRAM DIAGNOSTIC WITH TOMOSYNTHESIS WITH CAD (BILATERAL), BI USBREAST LIMITED (RIGHT) Additional patient information: Follow-up of prior right breast findingsand annual of the left. Status post prior right breast biopsy revealing benign results. COMPARISON: Comparison is made with relevant prior imaging. Breast composition: The breast tissue is extremely dense which lowers thesensitivity of mammography. FINDINGS: Right Mammogram: Stable oval equal density mass is present in the lower slightly outerright breast at mid depth with ribbon clip marker at site corresponding tosite of prior benign biopsy. No new suspicious finding in the rightbreast. Right Ultrasound: Targeted ultrasound was performed in the area of priorimaging concern. * At 8:00, 3 to 4 cm from the nipple, again seen is a stable 1.3 x 0.7 x1.0 cm mass containing a biopsy clip marker consistent with thebiopsy-proven benign mass, not significantly changed since ultrasound01/06/2022. * At 7:00, 3 to 4 cm from the nipple, again seen is the somewhat non- masshypoechoic area measuring 0.6 x 0.3 x 0.3 cm, previously measured 0.6 x0.5 x 0.5 cm, followed followed since ultrasound 07/11/2022 and consideredbenign. Left Mammogram: No abnormal masses, suspicious calcifications, or other significantfindings are identified mammographically in the left breast. IMPRESSION: Stable right breast findings for 2 years consistent with benign etiology.No mammographic evidence of malignancy in either breast. BI-RADS 2 BENIGN Results and recommendations were communicated to the patient at time ofexamination. us Nimo Gorman MD IMG US BREAST Final Result documented in this encounter Visit Diagnoses Diagnosis Abnormal finding on breast imaging- Primary Abnormal finding on breast imaging documented in this encounter Care Teams Flooring Helper Relationship Specialty Start Date End Date Nimo Gorman MD [address] [place] [address] PCP - General Internal Medicine 01/10/22 documented as of this encounter Additional Source Comments The information contained in this document represents components of the legal health record. It is not the complete legal health record.[facility]
--- OUTSIDE RECORDS SUMMARY | 2025-06-16 15:02 | XMS_ITS | Encounter Summary ---
Author Organization [facility] Address [address] [place] [id number] Phone Care Team Providers Care Frit Burner Name Role Phone Nimo Gorman MD Primary Care Provider [phone] Reason for Referral * Outpatient Procedure - Closed Specialty Diagnoses / Procedures Referred By Meme wilcox Referred To Contact Radiology Diagnoses Abnormal finding on breast imaging Procedures Mammogram Diagnostic Post Procedure (Right) CHG DIAGNOSTIC MAMMOGRAPHY COMPUTER-AIDED DETCJ UNI Nimo Gorman MD Phone: tel: fax: Referral ID Status Reason Start Date Expiration Date Visits Re quested Visits Authorized [id number] Closed 01/24/2022 01/24/2023 1 1 * Outpatient Procedure - Closed Specialty Diagnoses / Procedures Referred By Meme wilcox Referred To Contact Radiology Diagnoses Abnormal finding on breast imaging Procedures RESIDENTIAL Biopsy of Breast (Right) VT BX BREAST W DEVICE 1ST LESION ULTRASOUND GUIDE VT BX BREAST W DEVICE ADDL LESION ULTRASOUND GUIDE CHG X-RAY EXAM, BREAST SPECIMEN VT MOD SED SAME PHYS/QHP INITIAL 15 MINS 5/> YRS VT MOD SED SAME PHYS/QHP EACH ADDL 15 MINS Nimo Gorman MD Phone: tel: fax: Referral ID Status Reason Start Date Expiration Date Visits Re quested Visits Authorized [id number] Closed 01/24/2022 01/24/2023 1 1 Encounter Details Date Type Department Care Team (Late st Contact Info) Description 01/24/2022 Ancillary Orders [facility] [address] [id number] Nimo Gorman MD [address] [place] [address] Abnormal finding on breast imaging Social History Tobacco Use Types Packs/Day Years [...] st Contact Info) Description 07/01/2024 Procedure Pass [facility] [address] [place] [id number] 07/07/2025 12:45 PM EDT Appointment [facility] [address] [place] [id number] Nimo Gorman MD [address] [place] [address] documented as of this encounter Results * BI MAMMOGRAM DIAGNOSTIC POST PROCEDURE NO TOMOSYNTHESIS NO CAD (RIGHT) (02/07/2022 4:11 PM EDT) Anatomical Region Laterality Modality Breast Right, Breast Bilateral Right M ammography 02/07/2022 4:11 PM EDT Addenda Addendum by Cari Mensah MD on 02/17/2022 11:02 AM EDT ADDENDUM: Core biopsy of right breast oval hypoechoic mass at 8:00, 3 cm from the nipple: Pathology findings: Benign breast tissue with few ectatic ducts and focal pseudoangiomatous stromal hyperplasia, see NOTE. NOTE: Diagnostic features of discrete, mass-forming lesion are not seen. Radiologic correlation is advised to ensure the biopsy is technical sales representatives of the radiologic lesion. Multiple levels were examined. This result is: Benign and concordant. Recommendation: Recommend follow up imaging. Follow-up imaging with right breast diagnostic mammogram and ultrasound is recommended in 6 months. Communication of results: Findings and recommendations were communicated via telephone to the patient at 11:00 AM on 02/17/[address] Cari Mensah. Impressions 02/07/2022 4:22 PM EDT Core biopsy of right breast oval hypoechoic mass at 8:00, 3 cm from the nipple: Pathology findings: Pending and will be reported in an addendum This result is: Pending and will be reported in an addendum. Recommendation: Pending and will be reported in an addendum. Communication of results: Pending. ATTESTATION: Cari Haywood, as teaching physician have reviewed the images, if any, for this patient's exam, and if necessary, have edited the report originally created by Molly Mina. Narrative 02/07/2022 4:22 PM EDT Reason for exam (per EHR order): abnormal breast imaging; abnormal breast imaging Additional clinical information obtained from the EHR: Oval hypoechoic mass with indistinct margins at 8:00, 3 cm from the nipple measuring 1.2 x 0.6 x 1.0 cm, for which ultrasound-guided core biopsy is recommended. Pertinent imaging studies and/or documents were reviewed. The patient identification and procedure were verified. The patient's known allergies, current medications and adverse medication reactions were reviewed. The procedure was explained to the patient, including benefits, risks, and alternatives, and written consent was obtained. A safety pause was observed immediately prior to the procedure. ULTRASOUND-GUIDED CORE BIOPSY OF THE RIGHT BREAST WITH MARKER: The patient was positioned and images of the target were obtained. The breast was prepped for the procedure using standard aseptic technique. Local anesthetic was administered and documented in the EHR. The target was biopsied under ultrasound guidance using a lateral approach, a 13-gauge introducer, and a 14-gauge automated biopsy device. Multiple tissue samples were obtained. Adequate lesion sampling was confirmed by orthogonal ultrasound images. A ribbon-shaped tissue marker was placed and was directly observed to deploy at the biopsy site. Subsequent CC and lateral digital mammographic views demonstrate the marker within the biopsied mass. The teaching physician, Dr. Cari Mensah, was present for the entire radiologic and paulino portions of the procedure and was immediately available for the non- critical/paulino portions. The patient tolerated the procedure well. There were no immediate complications. Discharge instructions were reviewed and all patient questions were answered. The patient left the department in good condition. Procedure Note Cari Mensah MD - 02/07/2022 Reason for exam (per EHR order): abnormal breast imaging; abnormal breastimaging Additional clinical information obtained from the EHR: Oval hypoechoic mass with indistinct margins at 8:00, 3 cm from the nipplemeasuring 1.2 x 0.6 x 1.0 cm, for which ultrasound-guided core biopsy isrecommended. Pertinent imaging studies and/or documents were reviewed. The patientidentification and procedure were verified. The patient's known allergies,current medications and adverse medication reactions were reviewed. Theprocedure was explained to the patient, including benefits, risks, andalternatives, and written consent was obtained. A safety pause wasobserved immediately prior to the procedure. ULTRASOUND-GUIDED CORE BIOPSY OF THE RIGHT BREAST WITH MARKER: The patient was positioned and images of the target were obtained. Thebreast was prepped for the procedure using standard aseptic technique.Local anesthetic was administered and documented in the EHR. The targetwas biopsied under ultrasound guidance using a lateral approach, [id number] introducer, and a 14-gauge automated biopsy device. Multipletissue samples were obtained. Adequate lesion sampling was confirmed byorthogonal ultrasound images. A ribbon-shaped tissue marker was placed and was directly observed todeploy at the biopsy site. Subsequent CC and lateral digital mammographicviews demonstrate the marker within the biopsied mass. The teaching physician, Dr. Cari Mensah, was present for the entireradiologic and paulino portions of the procedure and was immediately availablefor the non- critical/paulino portions. The patient tolerated the procedure well. There were no immediatecomplications. Discharge instructions were reviewed and all patientquestions were answered. The patient left the department in goodcondition. IMPRESSION: Core biopsy of right breast oval hypoechoic mass at 8:00, 3 cm from thenipple: Pathology findings: Pending and will be reported in an addendum This result is: Pending and will be reported in an addendum. Recommendation: Pending and will be reported in an addendum. Communication of results: Pending. ATTESTATION: Cari Haywood, as teaching physician have reviewed theimages, if any, for this patient's exam, and if necessary, have edited thereport originally created by Molly Mina. us Nimo Gorman MD IMG MG EXAMS Edited Result - Final * RESIDENTIAL Biopsy of Breast (Right) (02/07/2022 4:09 PM EDT) Anatomical Region Laterality Modality Breast Right, Breast Bilateral Right U ltrasound 02/07/2022 4:11 PM EDT Addenda Addendum by Cari Mensah MD on 02/17/2022 11:02 AM EDT ADDENDUM: Core biopsy of right breast oval hypoechoic mass at 8:00, 3 cm from the nipple: Pathology findings: Benign breast tissue with few ectatic ducts and focal pseudoangiomatous stromal hyperplasia, see NOTE. NOTE: Diagnostic features of discrete, mass-forming lesion are not seen. Radiologic correlation is advised to ensure the biopsy is technical sales representatives of the radiologic lesion. Multiple levels were examined. This result is: Benign and concordant. Recommendation: Recommend follow up imaging. Follow-up imaging with right breast diagnostic mammogram and ultrasound is recommended in 6 months. Communication of results: Findings and recommendations were communicated via telephone to the patient at 11:00 AM on 02/17/[address] Cari Mensah. Impressions 02/07/2022 4:22 PM EDT Core biopsy of right breast oval hypoechoic mass at 8:00, 3 cm from the nipple: Pathology findings: Pending and will be reported in an addendum This result is: Pending and will be reported in an addendum. Recommendation: Pending and will be reported in an addendum. Communication of results: Pending. ATTESTATION: Cari Haywood, as teaching physician have reviewed the images, if any, for this patient's exam, and if necessary, have edited the report originally created by Molly Mina. Narrative 02/07/2022 4:22 PM EDT Reason for exam (per EHR order): abnormal breast imaging; abnormal breast imaging Additional clinical information obtained from the EHR: Oval hypoechoic mass with indistinct margins at 8:00, 3 cm from the nipple measuring 1.2 x 0.6 x 1.0 cm, for which ultrasound-guided core biopsy is recommended. Pertinent imaging studies and/or documents were reviewed. The patient identification and procedure were verified. The patient's known allergies, current medications and adverse medication reactions were reviewed. The procedure was explained to the patient, including benefits, risks, and alternatives, and written consent was obtained. A safety pause was observed immediately prior to the procedure. ULTRASOUND-GUIDED CORE BIOPSY OF THE RIGHT BREAST WITH MARKER: The patient was positioned and images of the target were obtained. The breast was prepped for the procedure using standard aseptic technique. Local anesthetic was administered and documented in the EHR. The target was biopsied under ultrasound guidance using a lateral approach, a 13-gauge introducer, and a 14-gauge automated biopsy device. Multiple tissue samples were obtained. Adequate lesion sampling was confirmed by orthogonal ultrasound images. A ribbon-shaped tissue marker was placed and was directly observed to deploy at the biopsy site. Subsequent CC and lateral digital mammographic views demonstrate the marker within the biopsied mass. The teaching physician, Dr. Cari Mensah, was present for the entire radiologic and paulino portions of the procedure and was immediately available for the non- critical/paulino portions. The patient tolerated the procedure well. There were no immediate complications. Discharge instructions were reviewed and all patient questions were answered. The patient left the department in good condition. Procedure Note Cari Mensah MD - 02/07/2022 Reason for exam (per EHR order): abnormal breast imaging; abnormal breastimaging Additional clinical information obtained from the EHR: Oval hypoechoic mass with indistinct margins at 8:00, 3 cm from the nipplemeasuring 1.2 x 0.6 x 1.0 cm, for which ultrasound-guided core biopsy isrecommended. Pertinent imaging studies and/or documents were reviewed. The patientidentification and procedure were verified. The patient's known allergies,current medications and adverse medication reactions were reviewed. Theprocedure was explained to the patient, including benefits, risks, andalternatives, and written consent was obtained. A safety pause wasobserved immediately prior to the procedure. ULTRASOUND-GUIDED CORE BIOPSY OF THE RIGHT BREAST WITH MARKER: The patient was positioned and images of the target were obtained. Thebreast was prepped for the procedure using standard aseptic technique.Local anesthetic was administered and documented in the EHR. The targetwas biopsied under ultrasound guidance using a lateral approach, [id number] introducer, and a 14-gauge automated biopsy device. Multipletissue samples were obtained. Adequate lesion sampling was confirmed byorthogonal ultrasound images. A ribbon-shaped tissue marker was placed and was directly observed todeploy at the biopsy site. Subsequent CC and lateral digital mammographicviews demonstrate the marker within the biopsied mass. The teaching physician, Dr. Cari Mensah, was present for the entireradiologic and paulino portions of the procedure and was immediately availablefor the non- critical/paulino portions. The patient tolerated the procedure well. There were no immediatecomplications. Discharge instructions were reviewed and all patientquestions were answered. The patient left the department in goodcondition. IMPRESSION: Core biopsy of right breast oval hypoechoic mass at 8:00, 3 cm from thenipple: Pathology findings: Pending and will be reported in an addendum This result is: Pending and will be reported in an addendum. Recommendation: Pending and will be reported in an addendum. Communication of results: Pending. ATTESTATION: Cari Haywood, as teaching physician have reviewed theimages, if any, for this patient's exam, and if necessary, have edited thereport originally created by Molly Mina. Nimo Gorman MD IMG BI IRP GUIDED BREAST PROC Edited Result - Final documented in this encounter Visit Diagnoses Diagnosis Abnormal finding on breast imaging Abnormal finding on breast imaging Abnormal finding on breast imaging documented in this encounter Care Teams Frit Burner Relationship Specialty Start Date End Date Nimo Gorman MD [address] [place] [id number] PCP - General Internal Medicine 01/10/22 documented as of this encounter Additional Source Comments The information contained in this document represents components of the legal health record. It is not the complete legal health record.[facility]
--- OUTSIDE RECORDS SUMMARY | 2025-06-16 15:02 | XMS_ITS | Encounter Summary ---
Author Organization [facility] Address [address] [place] [address] Phone Care Team Providers Care Engineer First Assistant Name Role Phone Nimo Gorman MD Primary Care Provider [phone] Encounter Details Date Type Department Care Team (Late st Contact Info) Description 05/30/2022 Ancillary Orders [facility] [address] [place] [address] Nimo Gorman MD [address] [place] [address] Dr Garcese [place] [address] Follow-up exam Social History Tobacco Use Types [...] st Contact Info) Description 07/01/2024 Procedure Pass [facility] [address] [place] [address] 07/07/2025 12:45 PM EDT Appointment [facility] [address] [place] [address] Nimo Gorman MD [facility] [address] documented as of this encounter Results * BI US BREAST LIMITED (RIGHT) (07/11/2022 2:36 PM EDT) Anatomical Region Laterality Modality Breast Right, Breast Bilateral Right U ltrasound 07/11/2022 1:53 PM EDT Impressions 07/12/2022 6:31 PM EDT Right Breast: Category 3. 1. Stable oval, hypoechoic mass at 8:00, 3-4 cm from the nipple, previously biopsied showing benign breast tissue with a few ectatic ducts and focal pseudoangiomatous stromal hyperplasia. 2. Hypoechoic area at 7:00, 3-4 cm from the nipple, similar in appearance to the previously biopsied mass, probably benign. Recommendation: Continued short term imaging follow-up for these findings is recommended. Right diagnostic mammogram and limited ultrasound in 6 months. Patient will be due for an annual mammogram of the left breast at this time, thus, exam should be scheduled/performed as a bilateral diagnostic mammogram. Results were discussed with the patient and a written summary was provided at the time of the study. OVERALL ASSESSMENT -- BI-RADS 3 PROBABLY BENIGN Needs follow up imaging ATTESTATION: Aaron Haywood, as teaching physician have reviewed the images, if any, for this patient's exam, and if necessary, have edited the report originally created by Nabila Rangel. Narrative 07/12/2022 6:31 PM EDT Reason for exam (per EHR order): 6 month follow up Additional clinical information obtained from the EHR: 47-year-old female with a palpable right breast mass status post biopsy on 02/07/2022 showing benign breast tissue with a few ectatic ducts and focal pseudoangiomatous stromal hyperplasia. TECHNIQUE: Digital Mammography and tomosynthesis were used to obtain images. Computer Aided Detection was used to aid in interpretation and volumetric breast density assessment may have been used as an aid in evaluating breast density. Real-time ultrasound was performed using a high-frequency linear array transducer. COMPARISON: Comparison is made with relevant prior imaging in PACS. Breast Composition: extremely dense which lowers the sensitivity of mammography. FINDINGS: Right Breast: Again seen is an oval, equal-density mass with indistinct margins in the central slightly lower slightly outer breast at middle depth, unchanged since at least the prior mammogram from December 29, 2021, although possible corresponding focal asymmetry is present on the prior mammogram from January 09, 2019 (precise comparison is limited due to absence of 3D images on the mammogram from 2018). There is a ribbon-shaped tissue marker associated with the mass from prior biopsy which showed benign breast tissue with a few ectatic ducts and focal pseudoangiomatous stromal hyperplasia. No suspicious calcifications or other abnormalities are seen. Targeted ultrasound of the right breast at 8:00, 3-4 cm from the nipple demonstrates a stable oval, hypoechoic mass with indistinct margins and trace vascularity measuring 1.3 x 0.7 x 1.2 cm, previously measuring 1.2 x 0.6 x 1.0 cm on ultrasound at outside facility dated 01/06/2022. There is a hyperechoic focus within the mass representing the tissue marker. There is a separate hypoechoic area measuring 0.6 x 0.5 x 0.6 cm at 7:00, 3-4 cm from the nipple without substantial vascularity, similar in appearance to the previously biopsied mass. Procedure Note Aarti Kumar MD - 07/12/2022 Reason for exam (per EHR order): 6 month follow up Additional clinical information obtained from the EHR: 47-year-old female with a palpable right breast mass status post biopsy on02/07/2022 showing benign breast tissue with a few ectatic ducts and focalpseudoangiomatous stromal hyperplasia. TECHNIQUE: Digital Mammography and tomosynthesis were used to obtain images. ComputerAided Detection was used to aid in interpretation and volumetric breastdensity assessment may have been used as an aid in evaluating breastdensity. Real-time ultrasound was performed using a high-frequency lineararray transducer. COMPARISON: Comparison is made with relevant prior imaging in PACS. Breast Composition: extremely dense which lowers the sensitivity ofmammography. FINDINGS: Right Breast: Again seen is an oval, equal-density mass with indistinct margins in thecentral slightly lower slightly outer breast at middle depth, unchangedsince at least the prior mammogram from December 29, 2021, although possiblecorresponding focal asymmetry is present on the prior mammogram from 2018 (precise comparison is limited due to absence of 3D images on themammogram from 2019). There is a ribbon-shaped tissue marker associatedwith the mass from prior biopsy which showed benign breast tissue with afew ectatic ducts and focal pseudoangiomatous stromal hyperplasia. Nosuspicious calcifications or other abnormalities are seen. Targeted ultrasound of the right breast at 8:00, 3-4 cm from the nippledemonstrates a stable oval, hypoechoic mass with indistinct margins andtrace vascularity measuring 1.3 x 0.7 x 1.2 cm, previously measuring 1.2 x0.6 x 1.0 cm on ultrasound at outside facility dated 01/06/2022. There is ahyperechoic focus within the mass representing the tissue marker. There jany separate hypoechoic area measuring 0.6 x 0.5 x 0.6 cm at 7:00, 3-4 cmfrom the nipple without substantial vascularity, similar in appearance tothe previously biopsied mass. IMPRESSION: Right Breast: Category 3. 1. Stable oval, hypoechoic mass at 8:00, 3-4 cm from the nipple,previously biopsied showing benign breast tissue with a few ectatic ductsand focal pseudoangiomatous stromal hyperplasia. 2. Hypoechoic area at 7:00, 3-4 cm from the nipple, similar in appearanceto the previously biopsied mass, probably benign. Recommendation: Continued short term imaging follow-up for these findingsis recommended. Right diagnostic mammogram and limited ultrasound in 6months. Patient will be due for an annual mammogram of the left breast atthis time, thus, exam should be scheduled/performed as a bilateraldiagnostic mammogram. Results were discussed with the patient and a written summary was providedat the time of the study. OVERALL ASSESSMENT -- BI-RADS 3 PROBABLY BENIGN Needs follow up imaging ATTESTATION: Aaron Haywood, as teaching physician have reviewed theimages, if any, for this patient's exam, and if necessary, have edited thereport originally created by Nabila Rangel. us Nimo Gorman MD IMG US BREAST Final Result * BI MAMMOGRAM DIAGNOSTIC WITH TOMOSYNTHESIS WITH CAD (RIGHT) (07/11/2022 1:24 PM EDT) Anatomical Region Laterality Modality Breast Right, Breast Bilateral Right M ammography 07/11/2022 1:53 PM EDT Impressions 07/12/2022 6:31 PM EDT Right Breast: Category 3. 1. Stable oval, hypoechoic mass at 8:00, 3-4 cm from the nipple, previously biopsied showing benign breast tissue with a few ectatic ducts and focal pseudoangiomatous stromal hyperplasia. 2. Hypoechoic area at 7:00, 3-4 cm from the nipple, similar in appearance to the previously biopsied mass, probably benign. Recommendation: Continued short term imaging follow-up for these findings is recommended. Right diagnostic mammogram and limited ultrasound in 6 months. Patient will be due for an annual mammogram of the left breast at this time, thus, exam should be scheduled/performed as a bilateral diagnostic mammogram. Results were discussed with the patient and a written summary was provided at the time of the study. OVERALL ASSESSMENT -- BI-RADS 3 PROBABLY BENIGN Needs follow up imaging ATTESTATION: Aaron Haywood, as teaching physician have reviewed the images, if any, for this patient's exam, and if necessary, have edited the report originally created by Nabila Rangel. Narrative 07/12/2022 6:31 PM EDT Reason for exam (per EHR order): 6 month follow up Additional clinical information obtained from the EHR: 47-year-old female with a palpable right breast mass status post biopsy on 02/07/2022 showing benign breast tissue with a few ectatic ducts and focal pseudoangiomatous stromal hyperplasia. TECHNIQUE: Digital Mammography and tomosynthesis were used to obtain images. Computer Aided Detection was used to aid in interpretation and volumetric breast density assessment may have been used as an aid in evaluating breast density. Real-time ultrasound was performed using a high-frequency linear array transducer. COMPARISON: Comparison is made with relevant prior imaging in PACS. Breast Composition: extremely dense which lowers the sensitivity of mammography. FINDINGS: Right Breast: Again seen is an oval, equal-density mass with indistinct margins in the central slightly lower slightly outer breast at middle depth, unchanged since at least the prior mammogram from December 29, 2021, although possible corresponding focal asymmetry is present on the prior mammogram from January 09, 2019 (precise comparison is limited due to absence of 3D images on the mammogram from 2019). There is a ribbon-shaped tissue marker associated with the mass from prior biopsy which showed benign breast tissue with a few ectatic ducts and focal pseudoangiomatous stromal hyperplasia. No suspicious calcifications or other abnormalities are seen. Targeted ultrasound of the right breast at 8:00, 3-4 cm from the nipple demonstrates a stable oval, hypoechoic mass with indistinct margins and trace vascularity measuring 1.3 x 0.7 x 1.2 cm, previously measuring 1.2 x 0.6 x 1.0 cm on ultrasound at outside facility dated 01/06/2022. There is a hyperechoic focus within the mass representing the tissue marker. There is a separate hypoechoic area measuring 0.6 x 0.5 x 0.6 cm at 7:00, 3-4 cm from the nipple without substantial vascularity, similar in appearance to the previously biopsied mass. Procedure Note Aarti Kumar MD - 07/12/2022 Reason for exam (per EHR order): 6 month follow up Additional clinical information obtained from the EHR: 47-year-old female with a palpable right breast mass status post biopsy on02/07/2022 showing benign breast tissue with a few ectatic ducts and focalpseudoangiomatous stromal hyperplasia. TECHNIQUE: Digital Mammography and tomosynthesis were used to obtain images. ComputerAided Detection was used to aid in interpretation and volumetric breastdensity assessment may have been used as an aid in evaluating breastdensity. Real-time ultrasound was performed using a high-frequency lineararray transducer. COMPARISON: Comparison is made with relevant prior imaging in PACS. Breast Composition: extremely dense which lowers the sensitivity ofmammography. FINDINGS: Right Breast: Again seen is an oval, equal-density mass with indistinct margins in thecentral slightly lower slightly outer breast at middle depth, unchangedsince at least the prior mammogram from December 29, 2021, although possiblecorresponding focal asymmetry is present on the prior mammogram from 2018 (precise comparison is limited due to absence of 3D images on themammogram from 2019). There is a ribbon-shaped tissue marker associatedwith the mass from prior biopsy which showed benign breast tissue with afew ectatic ducts and focal pseudoangiomatous stromal hyperplasia. Nosuspicious calcifications or other abnormalities are seen. Targeted ultrasound of the right breast at 8:00, 3-4 cm from the nippledemonstrates a stable oval, hypoechoic mass with indistinct margins andtrace vascularity measuring 1.3 x 0.7 x 1.2 cm, previously measuring 1.2 x0.6 x 1.0 cm on ultrasound at outside facility dated 01/06/2022. There is ahyperechoic focus within the mass representing the tissue marker. There jany separate hypoechoic area measuring 0.6 x 0.5 x 0.6 cm at 7:00, 3-4 cmfrom the nipple without substantial vascularity, similar in appearance tothe previously biopsied mass. IMPRESSION: Right Breast: Category 3. 1. Stable oval, hypoechoic mass at 8:00, 3-4 cm from the nipple,previously biopsied showing benign breast tissue with a few ectatic ductsand focal pseudoangiomatous stromal hyperplasia. 2. Hypoechoic area at 7:00, 3-4 cm from the nipple, similar in appearanceto the previously biopsied mass, probably benign. Recommendation: Continued short term imaging follow-up for these findingsis recommended. Right diagnostic mammogram and limited ultrasound in 6months. Patient will be due for an annual mammogram of the left breast atthis time, thus, exam should be scheduled/performed as a bilateraldiagnostic mammogram. Results were discussed with the patient and a written summary was providedat the time of the study. OVERALL ASSESSMENT -- BI-RADS 3 PROBABLY BENIGN Needs follow up imaging ATTESTATION: Aaron Haywood, as teaching physician have reviewed theimages, if any, for this patient's exam, and if necessary, have edited thereport originally created by Nabila Rangel. us Nimo Gorman MD IM MG EXAMS Final Result documented in this encounter Visit Diagnoses Diagnosis Follow-up exam Unspecified follow-up examination Follow-up exam Unspecified follow-up examination Follow-up exam Unspecified follow-up examination documented in this encounter Care Teams Engineer First Assistant Relationship Specialty Start Date End Date Nimo Gorman MD [address] [place], [place] [address] PCP - General Internal Medicine 01/10/22 documented as of this encounter Additional Source Comments The information contained in this document represents components of the legal health record. It is not the complete legal health record.[facility]
--- OUTSIDE RECORDS SUMMARY | 2025-06-16 15:02 | XMS_ITS | Patient Health Record ---
Author Organization [employer] Address [address] [place] [address] Care Team Providers Care Oil Operator Name Role Phone Nimo Gorman MD Primary Care Provider Unavaila Mimi Blum Unavailable [phone] Allergies No Known Allergies Results Component Value Reference Range Notes Urinalysis Reviewed date:03/25/2025 08:13:01 AM Interpretation: Performing Lab: Notes/Report: PH 6.0 PROTEIN Neg GLUCOSE Neg BLOOD Neg Reason For Referral No Information Medications Medication SIG (Take, Route, Frequency, Duration) Notes Start Date End Date Status Estradiol 10 MCG 1 _insert Vaginal TH REE TIMES A WEEK; Duration: 90 days 03/25/2025 Active Rosuvastatin Calcium 10 MG Oral; Duration: 90 Days Active Social History Tobacco Use: Social History [...] Status Risk Notes Problem Postmenopausal atrophic vaginitis (81564434) Postmenopausal atrophic vaginitis (N95.2) Active confirmed Problem Unspecified menopausal and perimenopausal disorder (N95.9) Active confirmed Problem Menopause (213270244) Menopausal and female climacteric states (N95.1) Active confirmed Problem Pure hypercholesterolemia (310861658) Pure hypercholesterol emia, unspecified (E78.00) Active confirmed Vital Signs Height 64.5 in 03/25/2025 Weight 149 lbs 03/25/2025 BMI 25.18 kg/m2 03/25/2025 Encounters Encounter Location Date Provider Diagnosis [facility] [address] [place] [address] 03/25/2025 Mimi Barnes Encounter for gynecological examination (general) (routine) without abnormal findings Z01.419 ; Encounter for screening mammogram for malignant neoplasm of breast Z12.31 ; Menopausal and female climacteric states N95.1 and Postmenopausal atrophic vaginitis N95.2 Assessments Encounter Date Diagnosis (ICD Code) Assessment Notes Treatment Notes Treatment Clinical Notes Section Notes 03/25/2025 Encounter for gynecological examination (general) (routine) without abnormal findings (ICD-10 - Z01.419) NO PAP TEST, DUE IN 2026. 03/25/2025 Encounter for screening mammogram for malignant neoplasm of breast (ICD-10 - Z12.31) REGULAR MAMMOGRAMS AND SBE'S WERE RECOMMENDED. 03/25/2025 Menopausal and female climacteric states (ICD-10 - N95.1) DISCUSSED MENOPAUSE AND SYMPTOMS ASSOCIATED WITH THIS. TRY OTC MEDS LIKE ESTROVEN. IF NOT BETTER AND SYMPTOMS INTERFERE WITH HER NORMAL LIFESTYLE, RETURN TO DISCUSS HRT. 03/25/2025 Postmenopausal atrophic vaginitis (ICD-10 - N95.2) DISCUSSED FINDINGS, DX AND TX OPTIONS. DISCUSSED BENEFITS AND RISKS OF INTRAVAGINAL ESTROGEN. SHE AGREED TO TRY. SHE HAS NO CONTRAINDICATIONS AND ACCEPTS RISKS. RX AND INSTRUCTIONS FOR YUVAFEM WERE GIVEN. Plan Of Treatment Pending Test Test Name Order Date MM Digital Mammo Screening 03/12/2024 MM Digital Mammo Screening 03/25/2025 Next Appt Details Provider Name:Mimi Thakkar calebyamini, 04/06/2026 08:00:00 AM, [address], [address], [place], [address], Insurance Providers Payer Name Payer Address Payer Phone Subscriber Number Group Number Insured Name Patient Relationship to Insured Coverage Start Date Coverage End Date [employer] [address] [place] [id number] PATRICA RAMÍREZ Spouse - patient is the spouse of the insured Medical (General) History Medical History History ICD Code Pure hypercholesterolemia, unspecified E 78.00 Postmenopausal atrophic vaginitis N95.2 Unspecified menopausal and perimenopausa l disorder N95.9 Surgical History Surgery Date(Month/Year) Appendectomy Breast Biopsy Colonoscopy Hospitalization History Reason Date(Month/Year) See Surgical Hx 2 Vaginal Deliveries
--- OUTSIDE RECORDS SUMMARY | 2025-06-16 15:02 | XMS_ITS | Encounter Summary ---
Author Organization [facility] Address [address] [place] [address] [place] [address] Phone Care Team Providers Care Director Of Marketing Analytics Name Role Phone Nimo Gorman MD Primary Care Provider [phone] Encounter Details Date Type Department Care Team (Late st Contact Info) Description 10/31/2023 Transcribe Orders [facility] [address] [place] [address] Nimo Gorman MD [facility] [address] [place] [address] Abnormal finding on breast imaging (Primary Dx) [...] st Contact Info) Description 07/01/2024 Procedure Pass [facility] [address] [address] 07/07/2025 12:45 PM EDT Appointment [facility] [address] [address] Nimo Gorman MD [address] [facility] [place] [address] documented as of this encounter Visit Diagnoses Diagnosis Abnormal finding on breast imaging- Primary documented in this encounter Care Teams Director Of Marketing Analytics Relationship Specialty Start Date End Date Nimo Gorman MD [address] [facility] [place] [address] PCP - General Internal Medicine 01/10/22 documented as of this encounter Additional Source Comments The information contained in this document represents components of the legal health record. It is not the complete legal health record.[facility]
--- OUTSIDE RECORDS SUMMARY | 2025-06-16 15:02 | XMS_ITS | Encounter Summary ---
Author Organization [facility] Address [address] [place] [address] Phone Care Team Providers Care Helper Maintenance Cleaning Name Role Phone Nimo Gorman MD Primary Care Provider [phone] Encounter Details Date Type Department Care Team (Late st Contact Info) Description 07/01/2024 Transcribe Orders [facility] [address] [place] [address] Nimo Gorman MD [facility] [address] [place] [address] Social History Tobacco Use Types Packs/Day Years [...] st Contact Info) Description 07/01/2024 Procedure Pass [facility] [address] [address] 07/07/2025 12:45 PM EDT Appointment [facility] [address] [address] Nimo Gorman MD [address] [facility] [place] [address] documented as of this encounter Visit Diagnoses Not on filedocumented in this encounter Care Teams Helper Maintenance Cleaning Relationship Specialty Start Date End Date Nimo Gorman MD [address] [place] [address] [place] [address] PCP - General Internal Medicine 01/10/22 documented as of this encounter Additional Source Comments The information contained in this document represents components of the legal health record. It is not the complete legal health record.[facility]
--- OUTSIDE RECORDS SUMMARY | 2025-06-16 15:02 | XMS_ITS | Encounter Summary ---
Author Organization [facility] Address [address] [place] [address] Phone Care Team Providers Care Certified Master Locksmith Name Role Phone Nimo Gorman MD Primary Care Provider [phone] Encounter Details Date Type Department Care Team (Late st Contact Info) Description 07/11/2022 Ancillary Orders [facility] [address] [place] [address] Nimo Gorman MD [address] [place] [address] Dr Garcese [place] [address] Follow-up exam Social History Tobacco Use Types [...] st Contact Info) Description 07/01/2024 Procedure Pass [facility] [address] [place] [address] 07/07/2025 12:45 PM EDT Appointment [facility] [address] [place] [address] Nimo Gorman MD [facility] [place] [address] documented as of this encounter Results * BI US BREAST LIMITED (RIGHT) (01/09/2023 1:56 PM EDT) Anatomical Region Laterality Modality Breast Right, Breast Bilateral Right U ltrasound 01/09/2023 1:36 PM EDT Impressions 01/09/2023 2:41 PM EDT Left Breast: Category 1. Negative, no mammographic evidence of malignancy. Recommendation: Routine screening in 1 year. However, patient is off cycle for screening purposes. She will return for diagnostic mammogram of the right breast in 6 months. Options are to perform diagnostic mammogram of the left breast in 6 months (07/2023), or she could come back in a separate visit for unilateral left breast screening mammogram in one year (01/2024). Right Breast: Category 3. Stable probably benign findings. Additional follow-up is recommended. Recommendation: Right diagnostic mammogram and limited ultrasound in 6 months. Results were discussed with the patient and a written summary was provided at the time of the study. OVERALL ASSESSMENT -- BI-RADS 3 PROBABLY BENIGN Needs follow up imaging Narrative 01/09/2023 2:41 PM EDT Reason for exam (per EHR order): 6 month follow up Additional clinical information obtained from the EHR: Short-interval followup of the right breast. No new breast complaints. TECHNIQUE: Digital Mammography and tomosynthesis were used [...] which lowers the sensitivity of mammography. FINDINGS: Left Breast: No significant masses, suspicious calcifications, or other abnormalities are seen. Right Breast: Redemonstrated is an oval mass in the central breast at middle depth. No suspicious calcifications or other abnormalities. Targeted ultrasound was performed to the right breast at 8:00, 3 to 4 cm from the nipple. Redemonstrated is a 1.3 x 0.8 x 1.1 cm oval circumscribed hypoechoic mass containing a biopsy marker denoting previous benign biopsy. At 7:00, 3 to 4 cm from the nipple, there is a hypoechoic non-mass area measuring 0.7 x 0.4 x 0.5 cm without internal color Doppler flow and appears morphologically similar to the surrounding fibroglandular tissue. Findings are stable compared to July,. us Nimo Gorman MD IMG US BREAST Final Result * BI MAMMOGRAM DIAGNOSTIC WITH TOMOSYNTHESIS WITH CAD (BILATERAL) (01/09/2023 1:21 PM EDT) Anatomical Region Laterality Modality Breast Left, Breast Right, Breast Bilateral Bila teral Mammography 01/09/2023 1:36 PM EDT Impressions 01/09/2023 2:41 PM EDT Left Breast: Category 1. Negative, no mammographic evidence of malignancy. Recommendation: Routine screening in 1 year. However, patient is off cycle for screening purposes. She will return for diagnostic mammogram of the right breast in 6 months. Options are to perform diagnostic mammogram of the left breast in 6 months (07/2023), or she could come back in a separate visit for unilateral left breast screening mammogram in one year (01/2024). Right Breast: Category 3. Stable probably benign findings. Additional follow-up is recommended. Recommendation: Right diagnostic mammogram and limited ultrasound in 6 months. Results were discussed with the patient and a written summary was provided at the time of the study. OVERALL ASSESSMENT -- BI-RADS 3 PROBABLY BENIGN Needs follow up imaging Narrative 01/09/2023 2:41 PM EDT Reason for exam (per EHR order): 6 month follow up Additional clinical information obtained from the EHR: Short-interval followup of the right breast. No new breast complaints. TECHNIQUE: Digital Mammography and tomosynthesis were used [...] which lowers the sensitivity of mammography. FINDINGS: Left Breast: No significant masses, suspicious calcifications, or other abnormalities are seen. Right Breast: Redemonstrated is an oval mass in the central breast at middle depth. No suspicious calcifications or other abnormalities. Targeted ultrasound was performed to the right breast at 8:00, 3 to 4 cm from the nipple. Redemonstrated is a 1.3 x 0.8 x 1.1 cm oval circumscribed hypoechoic mass containing a biopsy marker denoting previous benign biopsy. At 7:00, 3 to 4 cm from the nipple, there is a hypoechoic non-mass area measuring 0.7 x 0.4 x 0.5 cm without internal color Doppler flow and appears morphologically similar to the surrounding fibroglandular tissue. Findings are stable compared to July,. Procedure Note Dayne Hill MD - 01/09/2023 Reason for exam (per EHR order): 6 month follow up Additional clinical information obtained from the EHR: Short-interval followup of the right breast. No new breast complaints. TECHNIQUE: Digital Mammography and tomosynthesis were used to obtain images. ComputerAided Detection was used to aid in interpretation and volumetric breastdensity assessment may have been used as an aid in evaluating breastdensity. Real-time ultrasound was performed using a high-frequency lineararray transducer. COMPARISON: Comparison is made with relevant prior imaging in PACS. Breast Composition: extremely dense which lowers the sensitivity ofmammography. FINDINGS: Left Breast: No significant masses, suspicious calcifications, or other abnormalitiesare seen. Right Breast: Redemonstrated is an oval mass in the central breast at middle depth. Nosuspicious calcifications or other abnormalities. Targeted ultrasound was performed to the right breast at 8:00, 3 to 4 cmfrom the nipple. Redemonstrated is a 1.3 x 0.8 x 1.1 cm oval circumscribedhypoechoic mass containing a biopsy marker denoting previous benignbiopsy. At 7:00, 3 to 4 cm from the nipple, there is a hypoechoic non-massarea measuring 0.7 x 0.4 x 0.5 cm without internal color Doppler flow andappears morphologically similar to the surrounding fibroglandular tissue.Findings are stable compared to July,. IMPRESSION: Left Breast: Category 1. Negative, no mammographic evidence of malignancy. Recommendation: Routine screening in 1 year. However, patient is offcycle for screening purposes. She will return for diagnostic mammogram ofthe right breast in 6 months. Options are to perform diagnostic mammogramof the left breast in 6 months (07/2023), or she could come back in aseparate visit for unilateral left breast screening mammogram in one year(01/2024). Right Breast: Category 3. Stable probably benign findings. Additional follow-up is recommended. Recommendation: Right diagnostic mammogram and limited ultrasound in 6months. Results were discussed with the patient and a written summary was providedat the time of the study. OVERALL ASSESSMENT -- BI-RADS 3 PROBABLY BENIGN Needs follow up imaging us Nimo Gorman MD IMG MG EXAMS Final Result documented in this encounter Visit Diagnoses Diagnosis Follow-up exam Unspecified follow-up examination Follow-up exam Unspecified follow-up examination Follow-up exam Unspecified follow-up examination documented in this encounter Care Teams Certified Master Locksmith Relationship Specialty Start Date End Date Nimo Gorman MD [facility] [place] [address] PCP - General Internal Medicine 01/10/22 documented as of this encounter Additional Source Comments The information contained in this document represents components of the legal health record. It is not the complete legal health record.[facility]
--- OUTSIDE RECORDS SUMMARY | 2025-06-16 15:02 | XMS_ITS | Encounter Summary ---
Author Organization [facility] Address [address] [place] [address] Phone Care Team Providers Care Transit Survey Worker Name Role Phone Nimo Gorman MD Primary Care Provider [phone] Encounter Details Date Type Department Care Team (Late st Contact Info) Description 01/18/2022 Ancillary Orders [facility] for Breast Imaging [address] [place] [address] Nimo Gorman MD [facility] [address] Garcese [place] [address] Abnormal mammogram Social History Tobacco Use Types Packs/Day Years [...] st Contact Info) Description 07/01/2024 Procedure Pass [facility] [address] [place] [address] 07/07/2025 12:45 PM EDT Appointment [facility] [address] [place] [address] Nimo Gorman MD [facility] [address] [place], [place] [address] documented as of this encounter Results * (ABNORMAL) Breast Imaging Consultation ([facility]) (01/18/2022 3:35 PM EDT) Anatomical Region Laterality Modality Breast Left, Breast Right, Breast Bilateral Radiographic Imaging 01/24/2022 1:52 PM EDT Impressions 01/24/2022 2:48 PM EDT Left Breast: No findings suspicious for malignancy on the imaging submitted for review. Right Breast: Right 8:00, 3 cm from the nipple 1.2 cm oval hypoechoic mass with indistinct margins is indeterminate. Ultrasound-guided core biopsy is recommended. Additional imaging recommended: None. Additional biopsy recommended: Right ultrasound-guided core biopsy. Communication of results: Results and recommendations will be communicated to the patient by the Breast Center. OVERALL ASSESSMENT: BI-RADS: 4A SUSPICIOUS ATTESTATION: Janna Haywood, as teaching physician have reviewed the images, if any, for this patient's exam, and if necessary, have edited the report originally created by Margaret Virk. Narrative 01/24/2022 2:48 PM EDT Reason for exam (per EHR order): 2nd opinion; abnormal breast imaging Additional clinical information obtained from the EHR: 46-year-old female who presents with a right breast palpable abnormality. SECOND OPINION CONSULT: Consult interpretation is performed by Dr. Janna Lancaster on 01/24/2022. The imaging reviewed below has been performed at an outside institution. [facility] are not responsible for image quality, completeness of this examination, or accuracy of patient identity. At the request of the patient's referring physician we have been asked to interpret examination(s) pertinent to facilitating breast care at [facility]. IMAGING REVIEWED: Mammogram(s): Mammographic images from [facility] dated 01/06/2022. Comparison(s): Comparison is made with relevant prior imaging available in PACS. Ultrasound(s): Ultrasound images from [facility] dated 01/06/2022. Comparison(s): No prior relevant ultrasound is available for comparison at the time of dictation. IMAGING FINDINGS: MAMMOGRAM: Technique: Digital mammography and tomosynthesis were performed; the tomosynthesis images are not available for review. Breast Composition: heterogeneously dense which may obscure small masses. LEFT BREAST: No significant masses, suspicious calcifications, or other abnormalities are seen. RIGHT BREAST: A BB marker is placed over the central breast at mid depth. Additional spot images demonstrate an equal density oval mass with indistinct margins, although it is not well visualized as the tomosynthesis images are not available for review. No suspicious calcifications, or other abnormalities are seen. ULTRASOUND: Ultrasound is an yardage tufting machine operator-dependent real-time examination. Only static images are available for review. RIGHT BREAST: At 8:00, 3 cm from the nipple in the area of palpable concern there is a oval hypoechoic mass with indistinct margins measuring 1.2 x 0.6 x 1.0 cm. Procedure Note Janna Lancaster MD - 01/24/2022 Reason for exam (per EHR order): 2nd opinion; abnormal breast imaging Additional clinical information obtained from the EHR: 46-year-old female who presents with a right breast palpable abnormality. SECOND OPINION CONSULT: Consult interpretation is performed by Dr. Janna Lancaster on 01/24/2022. Theimaging reviewed below has been performed at an outside institution.[facility] are not responsible for image quality, completeness of thisexamination, or accuracy of patient identity. At the request of thepatient's referring physician we have been asked to interpretexamination(s) pertinent to facilitating breast care at [facility]. IMAGING REVIEWED: Mammogram(s): Mammographic images from [facility] dated 01/06/2022. Comparison(s): [facility] Ultrasound(s): Ultrasound images from [facility] dated 01/06/2022. Comparison(s): No prior relevant ultrasound is available for comparison atthe time of dictation. IMAGING FINDINGS: MAMMOGRAM: Technique: Digital mammography and tomosynthesis were performed; thetomosynthesis images are not available for review. Breast Composition: heterogeneously dense which may obscure small masses. LEFT BREAST: No significant masses, suspicious calcifications, or otherabnormalities are seen. RIGHT BREAST: A BB marker is placed over the central breast at mid depth.Additional spot images demonstrate an equal density oval mass withindistinct margins, although it is not well visualized as thetomosynthesis images are not available for review. No suspiciouscalcifications, or other abnormalities are seen. ULTRASOUND: Ultrasound is an yardage tufting machine operator-dependent real-time examination.Only static images are available for review. RIGHT BREAST: At 8:00, 3 cm from the nipple in the area of palpableconcern there is a oval hypoechoic mass with indistinct margins measuring1.2 x 0.6 x 1.0 cm. IMPRESSION: Left Breast: No findings suspicious for malignancy on the imaging submitted for review. Right Breast: Right 8:00, 3 cm from the nipple 1.2 cm oval hypoechoic mass withindistinct margins is indeterminate. Ultrasound-guided core biopsy isrecommended. Additional imaging recommended: None. Additional biopsy recommended: Right ultrasound-guided core biopsy. Communication of results: Results and recommendations will be communicatedto the patient by the Breast Center. OVERALL ASSESSMENT: BI-RADS: 4A SUSPICIOUS ATTESTATION: Janna Haywood, as teaching physician have reviewed theimages, if any, for this patient's exam, and if necessary, have edited thereport originally created by Margaret Virk. us Nimo Gorman MD IMG RC CONSULT Final Result documented in this encounter Visit Diagnoses Diagnosis Abnormal mammogram Abnormal mammogram, unspecified Abnormal mammogram Abnormal mammogram, unspecified documented in this encounter Care Teams Transit Survey Worker Relationship Specialty Start Date End Date Nimo Gorman MD [address] [place] [address] PCP - General Internal Medicine 01/10/22 documented as of this encounter Additional Source Comments The information contained in this document represents components of the legal health record. It is not the complete legal health record.[facility]
--- OUTSIDE RECORDS SUMMARY | 2025-06-16 15:02 | XMS_ITS | Encounter Summary ---
Author Organization [facility] Address [address] [place] [address] Phone Care Team Providers Care Waste Oil Pumper Name Role Phone Nimo Gorman MD Primary Care Provider [phone] Encounter Details Date Type Department Care Team (Late st Contact Info) Description 10/31/2023 Ancillary Orders [facility] [address] [facility] OBC-3-[address] [place] [address] Nimo Gorman MD [facility] [facility] [address] [place] [address] Abnormal finding on breast imaging (Primary Dx) [...] st Contact Info) Description 07/01/2024 Procedure Pass [facility] [address] [address] 07/07/2025 12:45 PM EDT Appointment [facility] [address] [address] Nimo Gorman MD [facility] [place] [address] documented as of this encounter Results * BI MAMMOGRAM DIAGNOSTIC WITH TOMOSYNTHESIS WITH CAD (BILATERAL) (07/01/2024 1:18 PM EDT) Anatomical Region Laterality Modality Breast Left, Breast Right, Breast Bilateral Bila teral Mammography 07/01/2024 1:19 PM EDT Impressions 07/01/2024 2:26 [...] at time ofexamination. us Nimo Gorman MD IM MG EXAMS Final Result documented in this encounter Visit Diagnoses Diagnosis Abnormal finding on breast imaging- Primary Abnormal finding on breast imaging documented in this encounter Care Teams Waste Oil Pumper Relationship Specialty Start Date End Date Nimo Gorman MD [facility] [place] [address] PCP - General Internal Medicine 01/10/22 documented as of this encounter Additional Source Comments The information contained in this document represents components of the legal health record. It is not the complete legal health record.[facility]
--- OUTSIDE RECORDS SUMMARY | 2025-06-16 15:02 | XMS_ITS | Encounter Summary ---
Author Organization [facility] Address [address] [place] [address] Phone Care Team Providers Care Landscape Laborer Name Role Phone Nimo Gorman MD Primary Care Provider [phone] Encounter Details Date Type Department Care Team (Late st Contact Info) Description 05/30/2022 Procedure Pass [facility] [address] [place] [address] Social History Tobacco Use Types Packs/Day Years [...] st Contact Info) Description 07/01/2024 Procedure Pass [facility] [address] [place] [address] 07/07/2025 12:45 PM EDT Appointment [facility] [address] [place] [address] Nimo Gorman MD [address] [place] [address] [place] [address] documented as of this encounter Visit Diagnoses Not on filedocumented in this encounter Care Teams Landscape Laborer Relationship Specialty Start Date End Date Nimo Gorman MD [address] [facility] [place] [address] PCP - General Internal Medicine 01/10/22 documented as of this encounter Additional Source Comments The information contained in this document represents components of the legal health record. It is not the complete legal health record.[facility]
--- OUTSIDE RECORDS SUMMARY | 2025-06-16 15:02 | XMS_ITS | Encounter Summary ---
Author Organization [facility] Address [address] [place] [address] Phone Care Team Providers Care Cytogenetics Technologist Name Role Phone Nimo Gorman MD Primary Care Provider [phone] Encounter Details Date Type Department Care Team (Late st Contact Info) Description 01/09/2023 Procedure Pass [facility] [address] [place] [address] Social History Tobacco Use Types Packs/Day Years [...] st Contact Info) Description 07/01/2024 Procedure Pass [facility] [address] [address] 07/07/2025 12:45 PM EDT Appointment [facility] [address] [place] [address] Nimo Gorman MD [address] [facility] [place] [address] documented as of this encounter Visit Diagnoses Not on filedocumented in this encounter Care Teams Cytogenetics Technologist Relationship Specialty Start Date End Date Nimo Gorman MD [address] [facility] [place] [address] PCP - General Internal Medicine 01/10/22 documented as of this encounter Additional Source Comments The information contained in this document represents components of the legal health record. It is not the complete legal health record.[facility]
--- OUTSIDE RECORDS SUMMARY | 2025-06-16 15:02 | XMS_ITS | Encounter Summary ---
Author Organization [facility] Address [address] [place] [address] Phone Care Team Providers Care Wood Scrap Handler Name Role Phone Nimo Gorman MD Primary Care Provider [phone] Encounter Details Date Type Department Care Team (Late st Contact Info) Description 10/31/2023 Procedure Pass [facility] for [facility] Imaging [address] [place] [address] Social History Tobacco Use Types Packs/Day Years [...] [facility] [address] [place] [address] 07/07/2025 12:45 PM EDT Appointment [facility] [address] [address] Nimo Gorman MD [facility] [address] documented as of this encounter Visit Diagnoses Not on filedocumented in this encounter Care Teams Wood Scrap Handler Relationship Specialty Start Date End Date Nimo Gorman MD [address] [facility] [place] [address] PCP - General Internal Medicine 01/10/22 documented as of this encounter Additional Source Comments The information contained in this document represents components of the legal health record. It is not the complete legal health record.[facility]
--- OUTSIDE RECORDS SUMMARY | 2025-06-16 15:02 | XMS_ITS | Encounter Summary ---
Author Organization [facility] Address [address] [address] Phone Care Team Providers Care Transformer Coil Winder Name Role Phone Nimo Gorman MD Primary Care Provider [phone] Encounter Details Date Type Department Care Team ([facility] st Contact Info) Description 07/01/2024 Ancillary Orders [facility] [address] [facility] OBC-3-010 [place] [address] Nimo Gorman MD [facility] [address] [place] [address] Annual physical exam (Primary Dx) Social History Tobacco Use Types [...] st Contact Info) Description 07/01/2024 Procedure Pass [facility] Imaging [address] [address] 07/07/2025 12:45 PM EDT Appointment [facility] [address] [address] Nimo Gorman MD [address] [facility] [place] [address] Scheduled Orders Name Type Priority Associated Diagnoses Orde r Schedule Mammogram Screening (Bilateral) Imaging Routine Annual physical exam Expected: 09/09/2025, Expires: 07/01/2026 documented as of this encounter Visit Diagnoses Diagnosis Annual physical exam- Primary Routine general medical examination at a health care facility documented in this encounter Care Teams Transformer Coil Winder Relationship Specialty Start Date End Date Nimo Gorman MD [address] [place] [address] [place] [address] PCP - General Internal Medicine 01/10/22 documented as of this encounter Additional Source Comments The information contained in this document represents components of the legal health record. It is not the complete legal health record.[facility]
== END 2025-06-16 11:58 | disposition home or self-care (01) ==
LOC: HO.HMGCX 11:57
PROVIDERS: PCP Internal Medicine; Visit Provider Internal Medicine
DX: M25.561 Pain in right knee (principal); M25.562 Pain in left knee
CPT/HCPCS: 73565

== ENCOUNTER → 2025-06-16 12:01 | Outpatient (BNV) | payer OTHER, SELFPAY | PROVIDERS: PCP Internal Medicine; Visit Provider Radiology Diagnostic Radiology | DX: M25.561 Pain in right knee (principal); M25.562 Pain in left knee | CPT/HCPCS: 73565 ==

== ENCOUNTER 2025-06-30 14:48 | Outpatient (REF) | payer OTHER, SELFPAY ==
--- OUTSIDE RECORDS SUMMARY | 2025-06-30 19:57 | XMS_ITS | Encounter Summary ---
Author Organization [facility] Address [address] [place] [address] Phone Care Team Providers Care Candy Wrapping Machine Operator Name Role Phone Nimo Gorman MD Primary Care Provider [phone] Encounter Details Date Type Department Care Team (Late st Contact Info) Description 01/09/2023 Ancillary Orders [facility] [address] [place] [address] Nimo Gorman MD [address] [place] [address] Dr Garcese [place] [address] Follow-up exam Social History Tobacco Use Types [...] st Contact Info) Description 07/01/2024 Procedure Pass [facility] [address] [place] [address] 07/07/2025 12:45 PM EDT Appointment [facility] [address] [place] [address] [address] [place] [address] Nimo Gorman MD [address] [facility] [place] [address] documented as of this encounter Visit Diagnoses Diagnosis Follow-up exam Unspecified follow-up examination documented in this encounter Care Teams Candy Wrapping Machine Operator Relationship Specialty Start Date End Date Nimo Gorman MD [address] [facility] [place] [address] PCP - General Internal Medicine 01/10/22 documented as of this encounter Additional Source Comments The information contained in this document represents components of the legal health record. It is not the complete legal health record.[facility]
--- OUTSIDE RECORDS SUMMARY | 2025-06-30 19:57 | XMS_ITS | Encounter Summary ---
Author Organization [facility] Address [address] [place] [address] Phone Care Team Providers Care Miner Operator Name Role Phone Nimo Gorman MD Primary Care Provider [phone] Encounter Details Date Type Department Care Team (Late st Contact Info) Description 05/30/2022 Procedure Pass [facility] [address] [place] [address] Social History Tobacco Use Types Packs/Day Years [...] st Contact Info) Description 07/01/2024 Procedure Pass [facility] [address] [place] [address] 07/07/2025 12:45 PM EDT Appointment [facility] [address] [place] [address] Nimo Gorman MD [address] [place] [address] [place] [address] documented as of this encounter Visit Diagnoses Not on filedocumented in this encounter Care Teams Miner Operator Relationship Specialty Start Date End Date Nimo Gorman MD [address] [facility] [place] [address] PCP - General Internal Medicine 01/10/22 documented as of this encounter Additional Source Comments The information contained in this document represents components of the legal health record. It is not the complete legal health record.[facility]
--- OUTSIDE RECORDS SUMMARY | 2025-06-30 19:57 | XMS_ITS | Encounter Summary ---
Author Organization [facility] Address [address] [place] [address] Phone Care Team Providers Care Certified Personal Finance Counselor Name Role Phone Nimo Gorman MD Primary Care Provider [phone] Encounter Details Date Type Department Care Team (Late st Contact Info) Description 10/31/2023 Ancillary Orders [facility] Rad[facility] Department [address] [facility] OBC-3-010 [place] [address] Nimo Gorman MD [facility] Dr Lin [place] [address] Abnormal finding on breast imaging (Primary Dx) [...] st Contact Info) Description 07/01/2024 Procedure Pass [facility] [address] [address] 07/07/2025 12:45 PM EDT Appointment [facility] [address] [address] Nimo Gorman MD [facility] [place] [address] documented as of this encounter Results * [...] imaging documented in this encounter Care Teams Certified Personal Finance Counselor Relationship Specialty Start Date End Date Nimo Gorman MD [facility] [place] [address] PCP - General Internal Medicine 01/10/22 documented as of this encounter Additional Source Comments The information contained in this document represents components of the legal health record. It is not the complete legal health record.[facility]
--- OUTSIDE RECORDS SUMMARY | 2025-06-30 19:57 | XMS_ITS | Encounter Summary ---
Author Organization [facility] Address [address] [place] [address] Phone Care Team Providers Care Hack Driver Name Role Phone Nimo Gorman MD Primary Care Provider [phone] Encounter Details Date Type Department Care Team (Late st Contact Info) Description 05/30/2022 Procedure Pass [facility] [address] [place] [address] Social History Tobacco Use Types Packs/Day Years [...] st Contact Info) Description 07/01/2024 Procedure Pass [facility] [address] [place] [address] 07/07/2025 12:45 PM EDT Appointment [facility] [address] [place] [address] Nimo Gorman MD [address] [place] [address] [place] [address] documented as of this encounter Visit Diagnoses Not on filedocumented in this encounter Care Teams Hack Driver Relationship Specialty Start Date End Date Nimo Gorman MD [address] [facility] [place] [address] PCP - General Internal Medicine 01/10/22 documented as of this encounter Additional Source Comments The information contained in this document represents components of the legal health record. It is not the complete legal health record.[facility]
--- OUTSIDE RECORDS SUMMARY | 2025-06-30 19:57 | XMS_ITS | Encounter Summary ---
Author Organization [facility] Address [address] [place] [address] Phone Care Team Providers Care Regulator Operator Name Role Phone Nimo Gorman MD Primary Care Provider [phone] Encounter Details Date Type Department Care Team (Late st Contact Info) Description 07/11/2022 Procedure Pass [facility] [address] [place] [address] Social History Tobacco Use Types Packs/Day Years [...] Contact Info) Description 07/01/2024 Procedure Pass [facility] [address] [place] [address] 07/07/2025 12:45 PM EDT Appointment [facility] [address] [place] [address] Nimo Gorman MD [address] [place] [address] [place] [address] documented as of this encounter Visit Diagnoses Not on filedocumented in this encounter Care Teams Regulator Operator Relationship Specialty Start Date End Date Nimo Gorman MD [address] [place] [address] PCP - General Internal Medicine 01/10/22 documented as of this encounter Additional Source Comments The information contained in this document represents components of the legal health record. It is not the complete legal health record.[facility]
--- OUTSIDE RECORDS SUMMARY | 2025-06-30 19:57 | XMS_ITS | Patient Health Record ---
Author Organization [facility] Address [address] [facility] [address] [place] [address] Care Team Providers Care Political Researcher Name Role Phone Nimo Gorman MD Primary Care Provider Unavaila Mimi Blum Unavailable [phone] Allergies No Known Allergies Results Component Value [...] Status Risk Notes Problem Postmenopausal atrophic vaginitis (98127037) Postmenopausal atrophic vaginitis (N95.2) Active confirmed Problem Unspecified menopausal and perimenopausal disorder (N95.9) Active confirmed Problem Menopause (805252963) Menopausal and female climacteric states (N95.1) Active confirmed Problem Pure hypercholesterolemia (340792538) Pure hypercholesterol emia, unspecified (E78.00) Active confirmed Vital Signs Height 64.5 in 03/25/2025 Weight 149 lbs 03/25/2025 BMI 25.18 kg/m2 03/25/2025 Encounters Encounter Location Date Provider Diagnosis [facility] [address] [place] [address] 03/25/2025 Mimi Barnes Encounter for gynecological examination [...] Name:Mimi Thakkar calebyamini, 04/06/2026 08:00:00 AM, [address], [place], [address], Insurance Providers Payer Name Payer Address Payer Phone Subscriber Number Group Number Insured Name Patient Relationship to Insured Coverage Start Date Coverage End Date RANDLE PILGRIM [address] [place] [id number] PATRICA RAMÍREZ Spouse - patient is the spouse of the insured Medical (General) History Medical History History ICD Code Pure hypercholesterolemia, unspecified E 78.00 Postmenopausal atrophic vaginitis N95.2 Unspecified menopausal and perimenopausa l disorder N95.9 Surgical History Surgery Date(Month/Year) Appendectomy Breast Biopsy Colonoscopy Hospitalization History Reason Date(Month/Year) See Surgical Hx 2 Vaginal Deliveries
--- OUTSIDE RECORDS SUMMARY | 2025-06-30 19:57 | XMS_ITS | Encounter Summary ---
Author Organization [facility] Address [address] [place] [address] Phone Care Team Providers Care Senior Hardware Engineer Name Role Phone Nimo Gorman MD Primary Care Provider [phone] Encounter Details Date Type Department Care Team (Late st Contact Info) Description 10/31/2023 Ancillary Orders [facility] Department [address] [facility] OBC-3-010 [place] [address] Nimo Gorman MD [facility] Dr Lin [place] [address] Abnormal finding on breast imaging (Primary Dx) [...] st Contact Info) Description 07/01/2024 Procedure Pass [facility] [address] [address] 07/07/2025 12:45 PM EDT Appointment [facility] [address] [address] Nimo Gorman MD [facility] [place] [address] documented as of this encounter Results * [...] imaging documented in this encounter Care Teams Senior Hardware Engineer Relationship Specialty Start Date End Date Nimo Gorman MD [address] [facility] [place] [address] PCP - General Internal Medicine 01/10/22 documented as of this encounter Additional Source Comments The information contained in this document represents components of the legal health record. It is not the complete legal health record.[facility]
--- OUTSIDE RECORDS SUMMARY | 2025-06-30 19:57 | XMS_ITS | Encounter Summary ---
Author Organization [facility] Address [address] [place] [address] Phone Care Team Providers Care Adjunct Communications Faculty Member Name Role Phone Nimo Gorman MD Primary Care Provider [phone] Encounter Details Date Type Department Care Team (Late st Contact Info) Description 07/11/2022 Procedure Pass [facility] [address] [place] [address] Social History Tobacco Use Types Packs/Day Years [...] st Contact Info) Description 07/01/2024 Procedure Pass [facility] [address] [place] [address] 07/07/2025 12:45 PM EDT Appointment [facility] [address] [place] [address] Nimo Gorman MD [address] [place] [address] [place] [address] documented as of this encounter Visit Diagnoses Not on filedocumented in this encounter Care Teams Adjunct Communications Faculty Member Relationship Specialty Start Date End Date Nimo Gorman MD [address] [facility] [place] [address] PCP - General Internal Medicine 01/10/22 documented as of this encounter Additional Source Comments The information contained in this document represents components of the legal health record. It is not the complete legal health record.[facility]
--- OUTSIDE RECORDS SUMMARY | 2025-06-30 19:57 | XMS_ITS | Encounter Summary ---
Author Organization [facility] Address [address] [place] [address] Phone Care Team Providers Care Distance Learning Administrator Name Role Phone Nimo Gorman MD Primary Care Provider [phone] Encounter Details Date Type Department Care Team (Late st Contact Info) Description 05/30/2022 Ancillary Orders [facility] [address] [place] [address] Nimo Gorman MD [address] [place] [address] Dr Garcese [place] [address] Follow-up exam Social History Tobacco Use Types [...] st Contact Info) Description 07/01/2024 Procedure Pass [facility] [address] [place] [address] 07/07/2025 12:45 PM EDT Appointment [facility] [address] [place] [address] Nimo Gorman MD [facility] [place] [address] documented as of this encounter Results * [...] the mass representing the tissue marker. There ajny separate hypoechoic area measuring 0.6 x 0.5 [...] examination documented in this encounter Care Teams Distance Learning Administrator Relationship Specialty Start Date End Date Nimo Gorman MD [address] [facility] [address] [place], [place] [address] PCP - General Internal Medicine 01/10/22 documented as of this encounter Additional Source Comments The information contained in this document represents components of the legal health record. It is not the complete legal health record.[facility]
--- OUTSIDE RECORDS SUMMARY | 2025-06-30 19:58 | XMS_ITS | Data Portability ---
Author Organization [facility] Address [address] [place] [address] Care Team Providers Care Lead Section Supervisor Name Role Phone NIMO HOWARD Primary Care Provider Assessment No assessment recorded. Plan of Treatment Reminders Order Date Submit Date Provider Last Modified By Organization Details Last Modified Time Details Appointments None recorded. Lab urinalysis , dipstick 2022 023 [place] [address] _[facility], [address] [place] [address], [address], 3 09:29:26 test, urine 2022 023 [place] [address] _[facility], [address] [place] [address], [address], 3 09:29:24 Referral emergency medicine referral 2022 [...] Analyte Normal = light yellow Not Available [facility] [address], [address], 03/29/2023 08:43:33 03/29/20 23 03/29/2023 urina lysis , dipst ick Unknown Analyte Normal = clear [facility] [address], [place], [address], 03/29/2023 08:43:33 03/29/20 23 03/29/2023 urina lysis , dipst ick Unknown Analyte Normal = negati ve Not Available [address] [place] [address], [place], [address], 03/29/2023 08:43:33 03/29/20 23 03/29/2023 urina lysis , dipst ick Unknown Analyte Normal = Negati ve Not Available [address] [place] [address], [place], [address], 03/29/2023 08:43:33 03/29/20 23 03/29/2023 urina lysis , dipst ick Unknown Analyte Normal = Negati ve Not Available [address] [place] [address], [place], [address], 03/29/2023 08:43:33 03/29/20 23 03/29/2023 urina lysis , dipst ick Unknown Analyte Normal = 1.010, 1.015, 1.020 Not Available [address] [place] [address], [place], [address], 03/29/2023 08:43:33 03/29/20 23 03/29/2023 urina lysis , dipst ick Unknown Analyte Normal = Negati ve Not Available [address] [place] [address], [place], [address], 03/29/2023 08:43:33 03/29/20 23 03/29/2023 urina lysis , dipst ick Unknown Analyte Normal = 6.5, 7.0, 7.5, 8.0 Not Available [facility] [address], [place], [address], 03/29/2023 08:43:33 03/29/20 23 03/29/2023 urina lysis , dipst ick Unknown Analyte Normal = Negati ve Not Available [address], [place], [address], 03/29/2023 08:43:33 03/29/20 23 03/29/2023 urina lysis , dipst ick Unknown Analyte Normal = 0.2, 1.0 Not Available [address], [place], [address], 03/29/2023 08:43:33 03/29/20 23 03/29/2023 urina lysis , dipst ick Unknown Analyte Normal = Negati ve Not Available [address], [place], [address], 03/29/2023 08:43:33 03/29/20 23 03/29/2023 urina lysis , dipst ick Unknown Analyte Normal = Negati ve Not Available [address], [place], [address], 03/29/2023 08:43:33 03/29/20 23 03/29/2023 urina lysis , dipst ick Unknown Analyte Light Yellow Not Available [address], [place], [address], 03/29/2023 08:43:33 03/29/20 23 03/29/2023 urina lysis , dipst ick Unknown Analyte Clear Not Available [address], [place], [address], 03/29/2023 08:43:33 03/29/20 23 03/29/2023 urina lysis , dipst ick Unknown Analyte Negati ve Not Available nataliia ortega [address], [place], [address], 03/29/2023 08:43:33 03/29/20 23 03/29/2023 urina lysis , dipst ick Unknown Analyte Negati ve Not Available nataliia ortega [address], [place], [address], 03/29/2023 08:43:33 03/29/20 23 03/29/2023 urina lysis , dipst ick Unknown Analyte Negati ve Not Available nataliia ortega [address], [place], [address], 03/29/2023 08:43:33 03/29/20 23 03/29/2023 urina lysis , dipst ick Unknown Analyte 1.010 Not Available kiera [address], [place], [address], 03/29/2023 08:43:33 03/29/20 23 03/29/2023 urina lysis , dipst ick Unknown Analyte Negati ve Not Available nataliia ortega [address], [place], [address], 03/29/2023 08:43:33 03/29/20 23 03/29/2023 urina lysis , dipst ick Unknown Analyte 7.0 Not Available kiera [address], [place], [address], 03/29/2023 08:43:33 03/29/20 23 03/29/2023 urina lysis , dipst ick Unknown Analyte Negati ve Not Available nataliia ortega [address], [place], [address], 03/29/2023 08:43:33 03/29/20 23 03/29/2023 urina lysis , dipst ick Unknown Analyte 0.2 E.U./d L Not Available [facility] [address], [place], [address], 03/29/2023 08:43:33 03/29/20 23 03/29/2023 urina lysis , dipst ick Unknown Analyte Negati ve Not Available [address] [place] [address], [place], [address], 03/29/2023 08:43:33 03/29/20 23 03/29/2023 urina lysis , dipst ick Unknown Analyte Negati ve Not Available [address] [place] [address], [place], [address], 03/29/2023 08:43:33 03/29/20 23 03/29/2023 pregn eunice test, urine Unknown Analyte Normal = Negati ve Not Available [address] [place] [address], [place], [address], 03/29/2023 08:43:53 03/29/20 23 03/29/2023 pregn eunice test, urine Unknown Analyte negati ve Not Available [address] [place] [address], [place], [address], 03/29/2023 08:43:53 Result Notes None recorded. Problems Name Problem SNOMED Code Status Onset Date Resolution Date Notes Provider Name and Address Organization Details Recorded Time Hypercholestero lemia 52580971 Active Ailyn Ruszala null, [place] - [facility] 3 08:41:19 Iron deficiency 92504498 Active Ailyn Ruszala null, [place] - [facility] 3 08:41:48 Problem Notes None recorded. Procedures Surgical History Date Name Laterality Status Provider Name and Address Organization Details Recorded Time appendectomy completed Ailyn Ruszala PA - [facility] 03/29/2023 08:42:59 Imaging Results None recorded. Procedure [...] Pulse oximetry Body temperature Heart rate Systolic And Diastolic Provider Name and Address Organization Details Last Updated DateTime 3 165.1 cm 25 kg/m2 36843.8 6 g 16 /min 8 99 % 99 % 98.6 [degF] 61 /min 124/78 mm[Hg] Ailyn Oconnor PA - [facility] 08:46:28 Social History Question Answer Notes LastModified by inexio Details LastModified Time Tobacco Smoking Status Never Smoker Ailyn de [place] - [facility] 03/29/2023 08:42:02 Have You Had Direct Contact, Or Contact During Intimacy, With Monkeypox Rash, Scabs, Or Body Fluids From A Person With Monkeypox? No Information not available 03/29/2023 Have You Recently Traveled Abroad? No Information not available 03/29/2023 Sex: Unknown Functional Status Question Answer Note LastModified by inexio Details LastModified Time Do you use any illicit or recreational drugs? No Information not available 03/29/2023 What is your level of alcohol consumption? None Information not available 03/29/2023 Mental Status None recorded. Family History Relationship [...] Diagnosis SNOMED-CT Code Diagnosis ICD10 Code Diagnosis IMO Codes Diagnosis Note [id number] [address] [address] [place] [address] 10/23/2018 10:29:08 10/23/2018 11:58:27 [id number] [address] [address] [place] [address] 02/14/2022 09:47:54 02/14/2022 11:52:51 [id number] [address] [address] [address] [place] [address] 11/03/2017 09:22:42 11/03/2017 10:25:12 [id number] Estrella Morton MD [address] [place] [address] 03/29/2023 08:21:02 03/29/2023 09:31:36 Abdominal pain 70414045 R10.9 Abdo pain x 6 days, worse at night, colicky in nature location Right lumbar area.No other associated symptoms. HIstory appendecto my. Advised that [facility] can not effectivel y evaluate this pain wit the proper imaging and the ER would be best place to have a workup. patient agrees with plan.Will go to [facility] Health Concerns Section Related Observation LastModified by Organization Detai ls LastModified Time None Recorded Concern Status LastModified by Organization Details LastModified Time None Recorded Advance Directives Directive None Recorded Payers Insurance Date Sequence Insurance Name Policy Number Policy Tucker Covered Member ID Tucker Member ID Guarantor Name 03/29/2023 1 [facility] (MEDICAID HMO) MICHAEL Martinez [id number] Nimo Michelle Notes Date Note Type Note Provider Name and Address Organization Details Recorded Time 03/29/2023 text/html Abdominal PainReported by PatientAbdominal PainFor quality, patient reportssharp. For source of patient information, patient reportspatient arrived at urgent care ambulatory. For location, patient reportsrlq. For severity, patient reportspain level 9/10(cuurently pain is 1-2 but at night it is 8-9). For onset/timing, patient reportswax/wane. For context, patient reportsno travel(no history kidney stones). For modifying factors, patient reportslaying down. For associated symptoms, patient reportsno fever,no chills,no nausea,no vomiting,no diarrhea,no constipation,no blood in the urine,no shortness of breath, andno change in bowel/bladder habits. For other, patient reportsdenies possible . Estrella Morton MD [address] [place], [address], [place] - [facility] 03/29/2023 10:47:50 OBGyn Episode No OBEpisode recorded.
--- OUTSIDE RECORDS SUMMARY | 2025-06-30 19:58 | XMS_ITS | Encounter Summary ---
Author Organization [facility] Address [address] [place] [address] Phone Care Team Providers Care Photographers' Model Name Role Phone Nimo Gorman MD Primary Care Provider Encounter Details Date Type Department Care Team (Late st Contact Info) Description 07/01/2024 Transcribe Orders [facility] [address] [place] [address] Nimo Gorman MD [facility] [address] [place] [address] Social History Tobacco Use Types Packs/Day Years [...] st Contact Info) Description 07/01/2024 Procedure Pass [facility] [address] [address] 07/07/2025 12:45 PM EDT Appointment [facility] [address] [address] Nimo Gorman MD [address] [facility] [place] [address] documented as of this encounter Visit Diagnoses Not on filedocumented in this encounter Care Teams Photographers' Model Relationship Specialty Start Date End Date Nimo Gorman MD [address] [place] [address] [place] [address] PCP - General Internal Medicine 01/10/22 documented as of this encounter Additional Source Comments The information contained in this document represents components of the legal health record. It is not the complete legal health record.[facility]
--- OUTSIDE RECORDS SUMMARY | 2025-06-30 19:58 | XMS_ITS | Encounter Summary ---
Author Organization [facility] Address [address] [place] [address] Phone Care Team Providers Care Cardiovascular Sonographer Name Role Phone Nimo Gorman MD Primary Care Provider [phone] Reason for Referral * Outpatient Procedure - Closed Specialty Diagnoses / Procedures Referred By Meme wilcox Referred To Contact Radiology Diagnoses Abnormal finding on breast imaging Procedures Mammogram Diagnostic Post Procedure (Right) CHG DIAGNOSTIC MAMMOGRAPHY COMPUTER-AIDED DETCJ UNI Nimo Gorman MD Phone: tel: fax: Referral ID Status Reason Start Date Expiration Date Visits Re quested Visits Authorized [id number] Closed 01/24/2022 01/24/2023 1 1 * Outpatient Procedure - Closed Specialty Diagnoses / Procedures Referred By Meme wilcox Referred To Contact Radiology Diagnoses Abnormal finding on breast imaging Procedures SKILLED NURSING Biopsy of Breast (Right) CT BX BREAST W DEVICE 1ST LESION ULTRASOUND GUIDE CT BX BREAST W DEVICE ADDL LESION ULTRASOUND GUIDE CHG X-RAY EXAM, BREAST SPECIMEN CT MOD SED SAME PHYS/QHP INITIAL 15 MINS 5/> YRS CT MOD SED SAME PHYS/QHP EACH ADDL 15 MINS Nimo Gorman MD Phone: tel: fax: Referral ID Status Reason Start Date Expiration Date Visits Re quested Visits Authorized [id number] Closed 01/24/2022 01/24/2023 1 1 Encounter Details Date Type Department Care Team (Late st Contact Info) Description 01/24/2022 Ancillary Orders [facility] [address] [address] Nimo Gorman MD [address] [place] [address] Abnormal finding on breast imaging Social History [...] Procedure Pass [facility] [address] [place] [address] 07/07/2025 12:45 PM EDT Appointment [facility] [address] [place] [address] Nimo Gorman MD [address] [place] [address] documented as of this encounter Results * [...] is advised to ensure the biopsy is sales representative meats of the radiologic lesion. Multiple levels were [...] under ultrasound guidance using a lateral approach, [id number] introducer, and a 14-gauge automated biopsy device. [...] MG EXAMS Edited Result - Final * SKILLED NURSING Biopsy of Breast (Right) (02/07/2022 4:09 PM [...] is advised to ensure the biopsy is sales representative meats of the radiologic lesion. Multiple levels were [...] under ultrasound guidance using a lateral approach, [id number] introducer, and a 14-gauge automated biopsy device. [...] imaging documented in this encounter Care Teams Cardiovascular Sonographer Relationship Specialty Start Date End Date Nimo Gorman MD [address] [place] [address] PCP - General Internal Medicine 01/10/22 documented as of this encounter Additional Source Comments The information contained in this document represents components of the legal health record. It is not the complete legal health record.[facility]
--- OUTSIDE RECORDS SUMMARY | 2025-06-30 19:58 | XMS_ITS | Encounter Summary ---
Author Organization [facility] Address [address] [place] [address] Phone Care Team Providers Care Gut Carrier Name Role Phone Nimo Gorman MD Primary Care Provider [phone] Encounter Details Date Type Department Care Team (Late st Contact Info) Description 01/09/2023 Procedure Pass [facility] [address] [place] [address] Social History Tobacco Use Types Packs/Day Years [...] st Contact Info) Description 07/01/2024 Procedure Pass [facility] [address] [place] [address] [address] 07/07/2025 12:45 PM EDT Appointment [facility] [address] [place] [address] Nimo Gorman MD [address] [facility] [place] [address] documented as of this encounter Visit Diagnoses Not on filedocumented in this encounter Care Teams Gut Carrier Relationship Specialty Start Date End Date Nimo Gorman MD [address] [facility] [place] [address] PCP - General Internal Medicine 01/10/22 documented as of this encounter Additional Source Comments The information contained in this document represents components of the legal health record. It is not the complete legal health record.[facility]
--- OUTSIDE RECORDS SUMMARY | 2025-06-30 19:58 | XMS_ITS | Encounter Summary ---
Author Organization [facility] Address [address] [place] [address] Phone Care Team Providers Care Heating And Ventilating Drafter Name Role Phone Nimo Gorman MD Primary Care Provider [phone] Encounter Details Date Type Department Care Team (Late st Contact Info) Description 01/09/2023 Procedure Pass [facility] [address] [place] [address] Social History Tobacco Use Types Packs/Day Years [...] st Contact Info) Description 07/01/2024 Procedure Pass [facility] [address] [address] 07/07/2025 12:45 PM EDT Appointment [facility] [address] [place] [address] Nimo Gorman MD [address] [facility] [address] documented as of this encounter Visit Diagnoses Not on filedocumented in this encounter Care Teams Heating And Ventilating Drafter Relationship Specialty Start Date End Date Nimo Gorman MD [address] [place] [address] PCP - General Internal Medicine 01/10/22 documented as of this encounter Additional Source Comments The information contained in this document represents components of the legal health record. It is not the complete legal health record.[facility]
--- OUTSIDE RECORDS SUMMARY | 2025-06-30 19:58 | XMS_ITS | Encounter Summary ---
Author Organization [facility] Address [address] [place] [address] [place] [address] Phone Care Team Providers Care Landscape Architecture Professor Name Role Phone Nimo Gorman MD Primary Care Provider [phone] Encounter Details Date Type Department Care Team (Late st Contact Info) Description 10/31/2023 Transcribe Orders [facility] [address] [place] [address] Nimo Gorman MD [facility] Dr [place] [address] Abnormal finding on breast imaging (Primary Dx) [...] st Contact Info) Description 07/01/2024 Procedure Pass [facility] [address] [address] 07/07/2025 12:45 PM EDT Appointment [facility] [address] [address] Nimo Gorman MD [address] [place] [address] documented as of this encounter Visit Diagnoses Diagnosis Abnormal finding on breast imaging- Primary documented in this encounter Care Teams Landscape Architecture Professor Relationship Specialty Start Date End Date Nimo Gorman MD [address] [place] [address] PCP - General Internal Medicine 01/10/22 documented as of this encounter Additional Source Comments The information contained in this document represents components of the legal health record. It is not the complete legal health record.[facility]
--- OUTSIDE RECORDS SUMMARY | 2025-06-30 19:58 | XMS_ITS | Clinical Summary ---
Author Organization [facility] Address [address] [place] [address] [place] [address] Phone Care Team Providers Care Animal Biologist Name Role Phone Nimo Gorman MD Primary Care Provider [phone] Allergies No known active allergies Family History Medical History Relation Comments Prostate cancer Father Ashkenazi Spiritism ancestry Neg Hx Breast cancer Neg Hx [...] st Contact Info) Description 07/01/2024 Procedure Pass [facility] [address] [place] [address] 07/07/2025 12:45 PM EDT Appointment [facility] [address] [place] [address] [address] [place] [address] Nimo Gorman MD [facility] [address] Medical Devices Implanted Type Area Visual Designer Device Identifier Shelf Expiration Date Model / Serial / Lot Marker Ultraclip Ii 17ga 10cm Breast Tissue Ribbon Shaped Titanium Bx/5ea - [id number] Implanted:Qty: 1 on 02/07/2022 at [facility] Right: Breast CR [employer] 10/07/2024 [id number] / / [id number] Insurance [employer] [facility] POS EPO [facility] [place] [address] [place] [address] [place] [address] [place] [address] POS [facility]PO [facility] [place] [place] [address] [facility] POS [facility]PO [facility] [address] Care Teams Animal Biologist Relationship Specialty Start Date End Date Nimo Gorman MD [address] [facility] [address] PCP - General Internal Medicine 01/10/22 Additional Source Comments The information contained in this document represents components of the legal health record. It is not the complete legal health record.[facility]
--- OUTSIDE RECORDS SUMMARY | 2025-06-30 19:58 | XMS_ITS | Encounter Summary ---
Author Organization [facility] Address [address] [place] [address] Phone Care Team Providers Care Launch Engineer Name Role Phone Nimo Gorman MD Primary Care Provider [phone] Encounter Details Date Type Department Care Team (Late st Contact Info) Description 01/09/2023 Ancillary Orders [facility] Radiology Department 75 [facility] OBC-3-010 [place] [address] Nimo Gorman MD [address] [place] [address] Dr [place]cese [place] [address] Follow-up exam Social History Tobacco Use Types [...] Info) Description 07/01/2024 Procedure Pass [facility] [address] [place] [address] 07/07/2025 12:45 PM EDT Appointment [facility] for Breast Imaging 75 [facility] 2nd [place] [address] Nimo Gorman MD [address] [place] [address] documented as of this encounter Results * [...] examination documented in this encounter Care Teams Launch Engineer Relationship Specialty Start Date End Date Nimo Gorman MD [address] [place] [address] PCP - General Internal Medicine 01/10/22 documented as of this encounter Additional Source Comments The information contained in this document represents components of the legal health record. It is not the complete legal health record.[facility]
--- OUTSIDE RECORDS SUMMARY | 2025-06-30 19:58 | XMS_ITS | Encounter Summary ---
Author Organization [facility] Address [address] [place] [address] Phone Care Team Providers Care Seismograph Helper Name Role Phone Nimo Gorman MD Primary Care Provider [phone] Encounter Details Date Type Department Care Team (Late st Contact Info) Description 10/31/2023 Procedure Pass [facility] [address] [place] [address] Social History Tobacco Use Types Packs/Day Years [...] st Contact Info) Description 07/01/2024 Procedure Pass [facility] [address] [place] [address] 07/07/2025 12:45 PM EDT Appointment [facility] [address] [address] Nimo Gorman MD [facility] [place] [address] documented as of this encounter Visit Diagnoses Not on filedocumented in this encounter Care Teams Seismograph Helper Relationship Specialty Start Date End Date Nimo Gorman MD [address] [facility] [place] [address] PCP - General Internal Medicine 01/10/22 documented as of this encounter Additional Source Comments The information contained in this document represents components of the legal health record. It is not the complete legal health record.[facility]
--- OUTSIDE RECORDS SUMMARY | 2025-06-30 19:58 | XMS_ITS | Encounter Summary ---
Author Organization [facility] Address [address] [place] [address] Phone Care Team Providers Care Covering Machine Tender Name Role Phone Nimo Gorman MD Primary Care Provider [phone] Encounter Details Date Type Department Care Team (Late st Contact Info) Description 01/18/2022 Ancillary Orders [facility] [address] [place] [address] Nimo Gorman MD [facility] Dr Gar[place]e [place] [address] Abnormal mammogram Social History Tobacco Use Types [...] st Contact Info) Description 07/01/2024 Procedure Pass [facility] [address] [place] [address] 07/07/2025 12:45 PM EDT Appointment [facility] [address] [place] [address] Nimo Gorman MD [facility] Dr [place], [place] [address] documented as of this encounter Results * (ABNORMAL) Breast Imaging Consultation ([facility]) (01/18/2022 3:35 PM EDT) Anatomical Region Laterality [...] has been performed at an outside institution. [facility] are not responsible for image quality, completeness of this examination, or accuracy of patient identity. At the request of the patient's referring physician we have been asked to interpret examination(s) pertinent to facilitating breast care at [facility]. IMAGING REVIEWED: Mammogram(s): Mammographic images from [facility] dated 01/06/2022. Comparison(s): Comparison is made with relevant prior imaging available in PACS. Ultrasound(s): Ultrasound images from [facility] dated 01/06/2022. Comparison(s): No prior relevant ultrasound [...] abnormalities are seen. ULTRASOUND: Ultrasound is an tube making machine operator-dependent real-time examination. Only static images [...] below has been performed at an outside institution.[facility] are not responsible for image quality, completeness of thisexamination, or accuracy of patient identity. At the request of thepatient's referring physician we have been asked to interpretexamination(s) pertinent to facilitating breast care at [facility]. IMAGING REVIEWED: Mammogram(s): Mammographic images from [facility] dated 01/06/2022. Comparison(s): [facility] Ultrasound(s): Ultrasound images from [facility] dated 01/06/2022. Comparison(s): No prior relevant ultrasound [...] abnormalities are seen. ULTRASOUND: Ultrasound is an tube making machine operator-dependent real-time examination.Only static images are [...] unspecified documented in this encounter Care Teams Covering Machine Tender Relationship Specialty Start Date End Date Nimo Gorman MD [address] [facility] [place] [address] PCP - General Internal Medicine 01/10/22 documented as of this encounter Additional Source Comments The information contained in this document represents components of the legal health record. It is not the complete legal health record.[facility]
--- OUTSIDE RECORDS SUMMARY | 2025-06-30 19:58 | XMS_ITS | Encounter Summary ---
Author Organization [facility] Address [address] [place] [address] Phone Care Team Providers Care Air Bag Buffer Name Role Phone Nimo Gorman MD Primary Care Provider Encounter Details Date Type Department Care Team (Late st Contact Info) Description 07/11/2022 Ancillary Orders [facility] [address] [place] [address] Nimo Gorman MD [address] [place] [address] Dr Garcese [place] [address] Follow-up exam Social History Tobacco Use Types [...] st Contact Info) Description 07/01/2024 Procedure Pass [facility] [address] [place] [address] 07/07/2025 12:45 PM EDT Appointment [facility] [address] [place] [address] Nimo Gorman MD [facility] [place] [address] documented as of this encounter Results * [...] examination documented in this encounter Care Teams Air Bag Buffer Relationship Specialty Start Date End Date Nimo Gorman MD [facility] [place] [address] PCP - General Internal Medicine 01/10/22 documented as of this encounter Additional Source Comments The information contained in this document represents components of the legal health record. It is not the complete legal health record.[facility]
--- OUTSIDE RECORDS SUMMARY | 2025-06-30 19:58 | XMS_ITS | Encounter Summary ---
Author Organization [facility] Address [address] [address] Phone Care Team Providers Care Rubber Engraver Name Role Phone Nimo Gorman MD Primary Care Provider [phone] Encounter Details Date Type Department Care Team ([facility] st Contact Info) Description 07/01/2024 Ancillary Orders [facility] Radiology Department 75 [facility] OBC-3-010 [place] [address] Nimo Gorman MD [facility] [address] Lin [place] [address] Annual physical exam (Primary Dx) Social History [...] st Contact Info) Description 07/01/2024 Procedure Pass [facility] for Breast Imaging [address] [address] 07/07/2025 12:45 PM EDT Appointment [facility] [address] [address] Nimo Gorman MD [address] [facility] [address] Scheduled Orders Name Type Priority Associated Diagnoses Orde r Schedule Mammogram Screening (Bilateral) Imaging Routine Annual physical exam Expected: 09/09/2025, Expires: 07/01/2026 documented as of this encounter Visit Diagnoses Diagnosis Annual physical exam- Primary Routine general medical examination at a health care facility documented in this encounter Care Teams Rubber Engraver Relationship Specialty Start Date End Date Nimo Gorman MD [address] [place] [address] [place] [address] PCP - General Internal Medicine 01/10/22 documented as of this encounter Additional Source Comments The information contained in this document represents components of the legal health record. It is not the complete legal health record.[facility]
--- OUTSIDE RECORDS SUMMARY | 2025-06-30 19:58 | XMS_ITS | Encounter Summary ---
Author Organization [facility] Address [address] [place] [address] Phone Care Team Providers Care Boat Ride Operator Name Role Phone Nimo Gorman MD Primary Care Provider [phone] Encounter Details Date Type Department Care Team (Late st Contact Info) Description 10/31/2023 Procedure Pass [facility] [address] [place] [address] Social History Tobacco Use Types Packs/Day Years [...] st Contact Info) Description 07/01/2024 Procedure Pass [facility] [address] [place] [address] 07/07/2025 12:45 PM EDT Appointment [facility] Imaging [address] [address] Nimo Gorman MD [facility] [address] documented as of this encounter Visit Diagnoses Not on filedocumented in this encounter Care Teams Boat Ride Operator Relationship Specialty Start Date End Date Nimo Gorman MD [address] [place] [address] PCP - General Internal Medicine 01/10/22 documented as of this encounter Additional Source Comments The information contained in this document represents components of the legal health record. It is not the complete legal health record.[facility]
== END 2025-06-30 14:49 | disposition home or self-care (01) ==
LOC: HO.HMGCLDS 14:48
PROVIDERS: PCP Internal Medicine; Visit Provider Internal Medicine
DX: N39.0 Urinary tract infection, site not specified (principal)
CPT/HCPCS: 87086